=== PATIENT | male | born 1960 | race Caucasian/White ===

== ENCOUNTER 2019-08-04 10:49 | Inpatient (IN) | payer MEDICARE, OTHER ==
[2019-08-04] MEDS ORDERED: Sodium Chloride 0.9% 1000 ML 1,000 ML ONE (11:04)
[2019-08-04] MEDS ORDERED: Sodium Chloride 0.9% 1000 ML 2,000 ML ONE (11:10)
[2019-08-04] MEDS: Sodium Chloride 0.9% 1000 ML 1,000 ML IV SCH ×5 (11:10→22:52)
[2019-08-04] MEDS ORDERED: Zithromax 500 MG/ 250 ML NaCl Premix 500 MG/250 ML IVPB IV STA (11:14)
[2019-08-04] MEDS ORDERED: ROCEPHIN 1 Gm-D5w 50 ml Bag** 1 G/50 ML IVPB IV STA (11:14)
[2019-08-04] MEDS ORDERED: ROCEPHIN 1 Gm-D5w 50 ml Bag** 1 G/50 ML IVPB IV ONE (11:19)
[2019-08-04] MEDS ORDERED: Zithromax 500 MG/ 250 ML NaCl Premix 500 MG/250 ML IVPB IV ONE (11:19)
[2019-08-04 11:24] LABS: Lactic Acid 3.4 (0.4-2.0)
[2019-08-04] MEDS ORDERED: FEVERALL 325 MG PR STA (11:29)
[2019-08-04 11:31] LABS: BASOPHIL % 0.2 % (0.0-0.4); Basophil (Absolute #) 0.03 (0-0.4); Eosinophil % 0.1 % (0.00-5.0); Eosinophil (Absolute #) 0.01 (0-0.5); Hematocrit 49.8 % (42-50); Hemoglobin 16.7 gm/dl (12.5-18.0); INR 1.47 (0.8-3.0); Lymphocyte (Absolute #) 1.45 (1.0-4.6); Mean Cell Volume 90.7 fl (78-100); Mean Corpuscular Hemoglobin 30.4 pg (26-32); Mean Corpuscular Hgb Concent. 33.5 g/dl (32-36); Mean Platelet Volume 10.3 fl (6-9.5); Monocytes % 14.1 % (0.0-12.0); Neutrophil % 73.6 % (36.0-66.0); PROTIME 16.8 SECONDS (8.83-12.87); Platelet Count 280 K/mm3 (150-450); Red Blood Count 5.49 M/mm3 (4.1-5.6); Red Cell Distribution Width 13.9 % (11.5-14.0); White Blood Count 12.1 K/mm3 (4.0-10.5)
[2019-08-04] MEDS ORDERED: FEVERALL 650 MG ONE (11:31)
[2019-08-04 11:34] LABS: PTT 34.4 SECONDS (24.1-36.1)
[2019-08-04 11:35] LABS: ALBUMIN 4.4 g/dL (3.5-5.0); ALKALINE PHOSPHATASE 84 U/L (38-126); ANION GAP 15.3 MEQ/L (5-15); BLOOD UREA NITROGEN 19 mg/dL (9-20); CHLORIDE 101 mmol/L (98-107); Calcium 8.6 mg/dL (8.4-10.2); Carbon Dioxide 25 mmol/L (22-30); Creatinine 1 0.91 mg/dL (0.66-1.25); Glucose 122 mg/dL (74-106); Potassium 4.3 mmol/L (3.5-5.1); SGOT/AST 36 U/L (17-59); SGPT/ALT 29 U/L (0-50); SODIUM 137 mmol/L (137-145); Total Protein 8.2 g/dL (6.3-8.2)
--- NOTE | 2019-08-04 11:45 | ERPHSYRPT ---
- History of Present Illness Time Seen by Provider: 08/04/19 11:41 Source: patient, EMS Exam Limitations: no limitations Patient Subjective Stated Complaint: SOB Triage Nursing Assessment: Patient brought into ED via EMS and transferred to bed with assist of 4. Patient A+O X3. Patient's skin flushed, hot and diaphoretic. Patient states he has been coughing and not feeling well since Monday. Lungs noted to have Rhonchi throughout. Initial O2 77% on 4 liters per N/C then placed on non rebreather at 15 % O2 making Sat go to 98. Patient complains of body aches all over 05/16. Physician History: Patient brought into ED via EMS Patient states he has been coughing and not feeling well since Monday. Patient complains of body aches all over 05/16. Timing/Duration: day(s) (2-3 days) Associated Symptoms: cough, fever, lightheadedness, wheezing, weakness, chills, productive cough International travel in last 2 weeks: No Allergies/Adverse Reactions: No Known Drug Allergies Allergy (Unverified 08/04/19 10:54) Home Medications: Amitriptyline HCl 1 tab PO HS 08/04/19 [History] Fluoxetine HCl 1 tab PO DAILY 08/04/19 [History] Hx Influenza Vaccination/Date Given: No Hx Pneumococcal Vaccination/Date Given: No Immunizations Up to Date: Yes - Review of Systems Constitutional: Fever, Chills, Lethargy Eyes: Eye Redness Ears, Nose, & Throat: Sinus Drainage Respiratory: Cough, Dyspnea, Dyspnea on Exertion (ROBERTO), Wheezing Cardiac: Orthopnea, No Chest Pain, No Edema, No Syncope Abdominal/Gastrointestinal: No Abdominal Pain, No Nausea, No Vomiting, No Diarrhea Genitourinary Symptoms: No Dysuria Musculoskeletal: No Back Pain, No Neck Pain Skin: No Rash Neurological: No Dizziness, No Focal Weakness, No Sensory Changes Psychological: No Symptoms Endocrine: No Symptoms All Other Systems: Reviewed and Negative - Past Medical History Neurological History: Peripheral Neuropathy, Other Cardiac History: No Pertinent History Respiratory History: No Pertinent History Endocrine Medical History: No Pertinent History Musculoskeletal History: No Pertinent History GI Medical History: No Pertinent History History: No Pertinent History Psycho-Social History: Depression Male Reproductive Disorders: No Pertinent History Other Medical History: Multiple sclerosis, neuropathy, - Past Surgical History Past Surgical History: No Neuro Surgical History: No Pertinent History Cardiac: No Pertinent History Respiratory: No Pertinent History Gastrointestinal: No Pertinent History Genitourinary: No Pertinent History Musculoskeletal: No Pertinent History Male Surgical History: No Pertinent History - Social History Smoking Status: Never smoker Exposure to second hand smoke: No Drug Use: none Patient Lives Alone: No - Nursing Vital Signs Nursing Vital Signs: Initial Vital Signs Temperature 101.7 F 08/04/19 10:58 Pulse Rate 121 H 08/04/19 10:58 Respiratory Rate 35 H 08/04/19 10:58 Blood Pressure 148/96 08/04/19 10:58 O2 Sat by Pulse Oximetry 77 L 08/04/19 10:58 Pain Scale Pain Intensity 9 - Physical Exam General Appearance: moderate distress, alert Eye Exam: PERRL/EOMI Ears, Nose, Throat Exam: pharyngeal erythema Neck Exam: normal inspection, supple Respiratory Exam: diminished breath sounds, crackles/rales, rhonchi, wheezing Cardiovascular/Chest Exam: normal heart sounds, tachycardia Abdominal/Gastrointestinal Exam: soft, No tenderness, No distention, No mass Extremity Exam: non-tender, normal range of motion, normal inspection, no calf tenderness, no pedal edema Neurologic Exam: alert, oriented x 3, cooperative, No motor deficits Skin Exam: normal color, warm, No dry SpO2 Interpretation: hypoxic, ABG ordered, O2 applied SpO2: 98 O2 Delivery: Venti-Mask - Course Nursing assessment & vital signs reviewed: Yes EKG Interpreted by Me: Sinus Tach - Radiology Exams Chest X-ray Interpretation: Reviewed by me Ordered Tests: Active Orders 24 hr Category Date Time Status Veneer Clipper Helper STAT Care 08/04/19 10:58 Active IV Insertion STAT Care 08/04/19 10:58 Active IV Insertion-2nd Peripheral STAT Care 08/04/19 10:58 Active Oxygen-ED Only Venti-Mask 35% Care 08/04/19 10:58 Active Pulse Oximetry (ED) STAT Care 08/04/19 10:58 Active CHEST 1 VIEW (PORTABLE) Stat Exams 08/04/19 10:59 Taken BLOOD CULTURE Stat Lab 08/04/19 11:15 Received CBC W DIFF Stat Lab 08/04/19 11:10 Completed CMP Stat Lab 08/04/19 11:10 Completed CULTURE,URINE Stat Lab 08/04/19 11:08 Ordered Lactic Acid Stat Lab 08/04/19 10:58 Results Lactic Acid Stat Lab 08/04/19 10:59 Ordered PROTIME WITH INR Stat Lab 08/04/19 11:10 Completed PTT Stat Lab 08/04/19 11:10 Completed UA W/RFX UR CULTURE Stat Lab 08/04/19 11:08 Completed Medication Summary Generic Name Dose Route Start Last Admin Trade Name Spike PRN Reason Stop Dose Admin Sodium Chloride 1,000 mls @ 999 mls/hr 08/04/19 11:00 08/04/19 11:12 Sodium Chloride 0.9% 1000 Ml IV 08/04/19 14:00 999 mls/hr .[id number] CAROLE Administration Azithromycin 500 mg in 250 mls @ 250 mls/hr 08/04/19 11:14 08/04/19 11:23 Zithromax 500 Mg/ 250 Ml Nacl Premix IV 08/04/19 12:13 250 ml/hr STAT STA 250 mls/hr Administration Oseltamivir Phosphate 75 mg 08/04/19 12:10 Tamiflu 75mg Capsule PO 08/04/19 12:11 STAT ONE Discontinued Medications Generic Name Dose Route Start Last Admin Trade Name Spike PRN Reason Stop Dose Admin Acetaminophen 975 mg 08/04/19 11:29 08/04/19 11:31 Feverall 325 Mg AL 08/04/19 11:30 975 mg STAT STA Administration Acetaminophen Confirm 08/04/19 11:31 Feverall 650 Mg Administered 08/04/19 11:32 Dose 1,300 mg .ROUTE .STK-MED ONE Ceftriaxone Sodium/Dextrose 1 g in 50 mls @ 100 mls/hr 08/04/19 11:14 11:53 Rocephin 1 Gm-D5w 50 Ml Bag IV 08/04/19 11:43 Infused STAT STA Infusion Azithromycin Confirm 08/04/19 11:19 Zithromax 500 Mg/ 250 Ml Nacl Premix Administered 08/04/19 11:20 Dose 500 mg in 250 mls @ ud IV .STK-MED ONE Ceftriaxone Sodium/Dextrose Confirm 08/04/19 11:19 Rocephin 1 Gm-D5w 50 Ml Bag Administered 08/04/19 11:20 Dose 1 g in 50 mls @ ud IV .STK-MED ONE Lab/Rad Data: Laboratory Result Diagrams 08/04/19 11:10 08/04/19 11:10 Laboratory Results 08/04/19 08/04/19 08/04/19 Range/Units 11:30 11:10 11:10 WBC (4.0-10.5) K/mm3 RBC (4.1-5.6) M/mm3 Hgb (12.5-18.0) gm/dl Hct (42-50) % MCV (78-100) fl MCH (26-32) pg MCHC (32-36) g/dl RDW (11.5-14.0) % Plt Count (150-450) K/mm3 MPV (6-9.5) fl Gran % (36.0-66.0) % Eos # (Auto) (0-0.5) Absolute Lymphs (auto) (1.0-4.6) Absolute Monos (auto) (0.0-1.3) Lymphocytes % (24.0-44.0) % Monocytes % (0.0-12.0) % Eosinophils % (0.00-5.0) % Basophils % (0.0-0.4) % Absolute Granulocytes (1.4-6.9) Basophils # (0-0.4) PT 16.8 H (8.83-12.87) SECONDS INR 1.47 (0.8-3.0) APTT 34.4 (24.1-36.1) SECONDS Sodium 137 (137-145) mmol/L Potassium 4.3 (3.5-5.1) mmol/L Chloride 101 (98-107) mmol/L Carbon Dioxide 25 (22-30) mmol/L Anion Gap 15.3 H (5-15) MEQ/L BUN 19 (9-20) mg/dL Creatinine 0.91 (0.66-1.25) mg/dL Estimated GFR > 60.0 ML/MIN Glucose 122 H (74-106) mg/dL Lactic Acid (0.4-2.0) Calcium 8.6 (8.4-10.2) mg/dL Total Bilirubin 0.70 (0.2-1.3) mg/dL AST 36 (17-59) U/L ALT 29 (0-50) U/L Alkaline Phosphatase 84 (38-126) U/L Serum Total Protein 8.2 (6.3-8.2) g/dL Albumin 4.4 (3.5-5.0) g/dL Urine Color (YELLOW) Urine Appearance (CLEAR) Urine pH (5-6) Ur Specific [place] (1.005-1.025) Urine Protein (Negative) Urine Ketones (NEGATIVE) Urine Blood (0-5) Justen/ul Urine Nitrite (NEGATIVE) Urine Bilirubin (NEGATIVE) Urine Urobilinogen (0-1) mg/dL Ur Leukocyte Esterase (NEGATIVE) Urine WBC (Auto) (0-5) /HPF Urine RBC (Auto) (0-2) /HPF U Epithel Cells (Auto) (FEW) /HPF Urine Bacteria (Auto) (NEGATIVE) /HPF Uric Acid Cryst (Auto) (NEGATIVE) /HPF Urine Mucus (Auto) (NEGATIVE) /HPF Urine Culture Reflexed (NO) Urine Glucose (NEGATIVE) mg/dL Influenza Type A Ag POSITIVE (NEGATIVE) Influenza Type B Ag NEGATIVE (NEGATIVE) RSV (PCR) NEGATIVE (Negative) Slides for Path Review 08/04/19 08/04/19 08/04/19 Range/Units 11:10 11:08 10:58 WBC 12.1 H (4.0-10.5) K/mm3 RBC 5.49 (4.1-5.6) M/mm3 Hgb 16.7 (12.5-18.0) gm/dl Hct 49.8 (42-50) % MCV 90.7 (78-100) fl MCH 30.4 (26-32) pg MCHC 33.5 (32-36) g/dl RDW 13.9 (11.5-14.0) % Plt Count 280 (150-450) K/mm3 MPV 10.3 H (6-9.5) fl Gran % 73.6 H (36.0-66.0) % Eos # (Auto) 0.01 (0-0.5) Absolute Lymphs (auto) 1.45 (1.0-4.6) Absolute Monos (auto) 1.70 H (0.0-1.3) Lymphocytes % 12.0 L (24.0-44.0) % Monocytes % 14.1 H (0.0-12.0) % Eosinophils % 0.1 (0.00-5.0) % Basophils % 0.2 (0.0-0.4) % Absolute Granulocytes 8.90 H (1.4-6.9) Basophils # 0.03 (0-0.4) PT (8.83-12.87) SECONDS INR (0.8-3.0) APTT (24.1-36.1) SECONDS Sodium (137-145) mmol/L Potassium (3.5-5.1) mmol/L Chloride (98-107) mmol/L Carbon Dioxide (22-30) mmol/L Anion Gap (5-15) MEQ/L BUN (9-20) mg/dL Creatinine (0.66-1.25) mg/dL Estimated GFR ML/MIN Glucose (74-106) mg/dL Lactic Acid 3.4 H (0.4-2.0) Calcium (8.4-10.2) mg/dL Total Bilirubin (0.2-1.3) mg/dL AST (17-59) U/L ALT (0-50) U/L Alkaline Phosphatase (38-126) U/L Serum Total Protein (6.3-8.2) g/dL Albumin (3.5-5.0) g/dL Urine Color YELLOW (YELLOW) Urine Appearance SLIGHTLY CLOUDY (CLEAR) Urine pH 5.0 (5-6) Ur Specific [place] 1.023 (1.005-1.025) Urine Protein NEGATIVE (Negative) Urine Ketones SMALL (NEGATIVE) Urine Blood NEGATIVE (0-5) Justen/ul Urine Nitrite NEGATIVE (NEGATIVE) Urine Bilirubin NEGATIVE (NEGATIVE) Urine Urobilinogen 2 (0-1) mg/dL Ur Leukocyte Esterase NEGATIVE (NEGATIVE) Urine WBC (Auto) 0-2 (0-5) /HPF Urine RBC (Auto) 0-2 (0-2) /HPF U Epithel Cells (Auto) NONE (FEW) /HPF Urine Bacteria (Auto) RARE (NEGATIVE) /HPF Uric Acid Cryst (Auto) 5-10 (NEGATIVE) /HPF Urine Mucus (Auto) SLIGHT (NEGATIVE) /HPF Urine Culture Reflexed ORDERED SEPARATELY (NO) Urine Glucose NEGATIVE (NEGATIVE) mg/dL Influenza Type A Ag (NEGATIVE) Influenza Type B Ag (NEGATIVE) RSV (PCR) (Negative) Slides for Path Review YES - Progress Progress: improved Air Movement: fair Blood Culture(s) Obtained: Yes Antibiotics given: Yes Discussed with : Cindy Counseled pt/family regarding: lab results, diagnosis, need for follow-up, rad results - Departure Departure Disposition: Observation Clinical Impression: Influenza A, Hypoxia, Viral pneumonia, unspecified Condition: Fair Critical Care Time: Yes Critical Care Time(excluding separately billable procedures): Critical 30-74 mins Referrals: DOCTOR,NO FAMILY [Primary Care Provider] -
[2019-08-04 11:49] LABS: Appearance SLIGHTLY CLOUDY (CLEAR); Bacteria RARE /HPF (NEGATIVE); Bilirubin NEGATIVE (NEGATIVE); Blood NEGATIVE Ery/ul (0-5); Glucose NEGATIVE (NEGATIVE); Ketones SMALL (NEGATIVE); Leukocyte Esterase NEGATIVE (NEGATIVE); Mucus SLIGHT /HPF (NEGATIVE); Nitrite NEGATIVE (NEGATIVE); Protein,Urine Dip NEGATIVE (Negative); RBC 0-2 /HPF (0-2); Specific Gravity 1.023 (1.005-1.025); Urobilinogen 2 mg/dL (0-1); WBC 0-2 /HPF (0-5)
[2019-08-04 11:58] LABS: Slide Review 1 YES
[2019-08-04 12:09] LABS: INFLUENZA A POSITIVE (NEGATIVE); INFLUENZA B NEGATIVE (NEGATIVE); RESPIRATORY SYNCTIAL VIRUS NEGATIVE (Negative)
[2019-08-04] MEDS ORDERED: Tamiflu 75MG Capsule PO ONE ×2 (12:10→12:13)
[2019-08-04] MEDS ORDERED: TYLENOL 325 MG PO PRN (12:37)
[2019-08-04] MEDS: DUONEB 0.5-3 MG/3 ml Neb IH SCH ×2 (14:20→19:40)
[2019-08-04] MEDS: PROTONIX 40 MG IV IV SCH (14:21)
[2019-08-04] MEDS: ENOXAPARIN SODIUM SQ SCH (14:21)
[2019-08-04 14:29] LABS: A-aADO2 552; ABG POTASSIUM 3.5 (3.5-5.1); ABG SITE LEFT BRACHIAL; ARTERIAL BLOOD GAS BASE EXCESS -3.5 (-2.0-2.0); ARTERIAL BLOOD GAS PCO2 34 mmHg (35-45); ARTERIAL BLOOD GAS PO2 119 mmHg (75-100); ARTERIAL BLOOD GAS pH 7.39 (7.35-7.45); CARBOXYHEMOGLOBIN 1.4 % THgb (0.0-6.9); HCO3- 20.6 (22-28); HGB O2 SAT 96.9 g/dF (94-100); paO2 pAO1 0.18
[2019-08-04] MEDS ORDERED: Zofran 4 MG/2 ML VIAL IV PRN (16:52)
--- NOTE | 2019-08-04 20:16 | XRAY ---
Indication: Sepsis. Comparison: March 17, 2012. Portable chest again demonstrates right base discoid atelectasis/scarring. Remaining heart and left lung normal. Bony thorax intact again with mild degenerative changes. No new/acute findings.
[2019-08-04] MEDS: Tamiflu 75MG Capsule PO SCH (21:45)
[2019-08-04] MEDS: Pepcid 20 MG VIAL IV SCH (21:45)
[2019-08-05] MEDS: DUONEB 0.5-3 MG/3 ml Neb IH SCH ×4 (01:00→20:17)
[2019-08-05 05:31] LABS: BASOPHIL % 0.3 % (0.0-0.4); Basophil (Absolute #) 0.02 (0-0.4); Eosinophil (Absolute #) 0 (0-0.5); Hematocrit 43.4 % (42-50); Hemoglobin 14.3 gm/dl (12.5-18.0); Lymphocyte (Absolute #) 0.74 (1.0-4.6); Lymphocytes % 11.6 % (24.0-44.0); Mean Cell Volume 92.1 fl (78-100); Mean Corpuscular Hemoglobin 30.4 pg (26-32); Mean Corpuscular Hgb Concent. 32.9 g/dl (32-36); Mean Platelet Volume 9.9 fl (6-9.5); Monocyte (Absolute #) 0.91 (0.0-1.3); Monocytes % 14.3 % (0.0-12.0); Neutrophil % 73.8 % (36.0-66.0); Platelet Count 188 K/mm3 (150-450); Red Blood Count 4.71 M/mm3 (4.1-5.6); Red Cell Distribution Width 13.9 % (11.5-14.0); White Blood Count 6.4 K/mm3 (4.0-10.5)
[2019-08-05 05:43] LABS: ANION GAP 10.6 MEQ/L (5-15); BLOOD UREA NITROGEN 15 mg/dL (9-20); CHLORIDE 106 mmol/L (98-107); Calcium 7.6 mg/dL (8.4-10.2); Carbon Dioxide 25 mmol/L (22-30); Creatinine 1 0.76 mg/dL (0.66-1.25); Glucose 103 mg/dL (74-106); Potassium 3.7 mmol/L (3.5-5.1); SODIUM 138 mmol/L (137-145)
--- NOTE | 2019-08-05 08:57 | PCM.HP ---
History of Present Illness - Chief Complaint Chief Complaint: Influenza A, Viral Pneumonia History of Present Illness: is a 58 year old male with no local physician, has had cough, fever and myalgias prior to arrival, found to have influenza. He has a history of MS and sees Dr Irvin Littlejohn as his neurologist in [place], lives with his and daughter, uses a power mobility device and is non-ambulatory. He denies any history of cardiac or pulmonary problems. - Review of Systems Constitutional: Fever, Chills Respiratory: Cough, Short Of Breath Cardiac: No Chest Pain, No Edema, No Syncope Abdominal/Gastrointestinal: No Abdominal Pain, No Nausea, No Vomiting, No Diarrhea Skin: No Rash All Other Systems: Reviewed and Negative Medications & Allergies Home Medications: Home Medication List Amitriptyline HCl 100 mg PO HS 08/04/19 [History Confirmed 08/04/19] Fluoxetine HCl 20 mg PO DAILY 08/04/19 [History Confirmed 08/04/19] Allergies/Adverse Reactions: Allergies Allergy/AdvReac Type Severity Reaction Status Date / Time No Known Drug Allergies Allergy Unverified 08/04/19 10:54 - Past Medical History Neurological History: Peripheral Neuropathy, Other ENT History: No Pertinent History Cardiac History: No Pertinent History Respiratory History: No Pertinent History Endocrine Medical History: No Pertinent History Musculoskelatal History: No Pertinent History GI Medical History: No Pertinent History History: No Pertinent History Pyscho-Social History: Depression Male Reproductive Disorders: No Pertinent History Comment: Multiple sclerosis, neuropathy, - Past Surgical History Past Surgical History: No Neuro Surgical History: No Pertinent History Cardiac History: No Pertinent History Respiratory Surgery: No Pertinent History GI Surgical History: No Pertinent History Genitourinary Surgical Hx: No Pertinent History Musculskeletal Surgical Hx: No Pertinent History Male Surgical History: No Pertinent History - Social History Smoking Status: Never smoker Exposure to second hand smoke: No Alcohol: None Drug Use: none - Physical Exam Vital Signs: Vital Signs - 24 hr Temp Pulse Resp BP Pulse Ox 08/05/19 07:52 98 08/05/19 07:23 107 H 38 H 92 L 08/05/19 07:18 99.2 F 107 H 38 H 129/65 92 L 08/05/19 03:44 99.2 F 71 22 131/72 94 L 08/05/19 01:00 99 H 20 97 08/05/19 00:00 98.7 F 99 H 20 128/73 99 08/04/19 19:58 100.6 F 109 H 21 137/71 98 08/04/19 19:56 110 H 20 96 08/04/19 16:34 100.1 F 107 H 22 142/85 96 08/04/19 15:08 111 H 18 96 08/04/19 13:02 101 F 115 H 22 138/75 98 08/04/19 12:51 101 F 115 H 22 138/75 98 08/04/19 12:13 98 08/04/19 12:11 103.1 F 118 H 28 H 125/80 99 08/04/19 11:35 103.5 F 122 H 30 H 138/69 98 08/04/19 11:28 116 H 32 H 158/95 97 08/04/19 11:08 93 L 08/04/19 10:58 101.7 F 121 H 35 H 148/96 100 Oxygen-Last 24 hours O2 Percentage 100% O2 Percentage 100% O2 Percentage 100% O2 Percentage 35% O2 Percentage 100% Oxygen Flowrate (L/min)-RT 15 Oxygen Flowrate (L/min)-RT 15 Oxygen Flowrate (L/min)-RT 15 Oxygen Flowrate (L/min)-RT 10 General Appearance: mild distress, obese Neurologic Exam: alert, oriented x 3, cooperative Respiratory Exam: rhonchi Cardiovascular Exam: regular rate/rhythm, normal heart sounds, normal peripheral pulses Gastrointestinal/Abdomen Exam: soft, normal bowel sounds, No tenderness, No mass Extremity Exam: normal inspection, normal range of motion, pelvis stable Skin Exam: normal color, warm, dry, No rash Wound Assessment: Skin/Wound Assessment Wound/Incision Assessment Start: 08/04/19 13: 55 Text: Status: Active Freq: Q6H Protocol: Document 08/05/19 02:00 GILES (Rec: 08/05/19 03:23 GILES [id number]) Wound Photo Photo Taken No Results - Labs Lab/Micro Results: Lab Results-Last 24 Hours 08/04/19 08/04/19 08/04/19 Range/Units 10:58 11:08 11:10 WBC 12.1 H (4.0-10.5) K/mm3 RBC 5.49 (4.1-5.6) M/mm3 Hgb 16.7 (12.5-18.0) gm/dl Hct 49.8 (42-50) % MCV 90.7 (78-100) fl MCH 30.4 (26-32) pg MCHC 33.5 (32-36) g/dl RDW 13.9 (11.5-14.0) % Plt Count 280 (150-450) K/mm3 MPV 10.3 H (6-9.5) fl Gran % 73.6 H (36.0-66.0) % Eos # (Auto) 0.01 (0-0.5) Absolute Lymphs (auto) 1.45 (1.0-4.6) Absolute Monos (auto) 1.70 H (0.0-1.3) Lymphocytes % 12.0 L (24.0-44.0) % Monocytes % 14.1 H (0.0-12.0) % Eosinophils % 0.1 (0.00-5.0) % Basophils % 0.2 (0.0-0.4) % Absolute Granulocytes 8.90 H (1.4-6.9) Basophils # 0.03 (0-0.4) PT (8.83-12.87) SECONDS INR (0.8-3.0) APTT (24.1-36.1) SECONDS Puncture Site pCO2 (35-45) mmHg pO2 (75-100) mmHg Base Excess (-2.0-2.0) O2 Saturation (94-100) g/dF ABG pH (7.35-7.45) ABG HCO3 (22-28) [place] Test A-a Gradient a/A Ratio Hemoglobin Carboxyhemoglobin (0.0-6.9) % THgb Methemoglobin (1.4-1.5) % Temperature C Sodium (137-145) mmol/L Potassium (3.5-5.1) mmol/L Chloride (98-107) mmol/L Carbon Dioxide (22-30) mmol/L Anion Gap (5-15) MEQ/L BUN (9-20) mg/dL Creatinine (0.66-1.25) mg/dL Estimated GFR ML/MIN Glucose (74-106) mg/dL Lactic Acid 3.4 H (0.4-2.0) Calcium (8.4-10.2) mg/dL Total Bilirubin (0.2-1.3) mg/dL AST (17-59) U/L ALT (0-50) U/L Alkaline Phosphatase (38-126) U/L Serum Total Protein (6.3-8.2) g/dL Albumin (3.5-5.0) g/dL Urine Color YELLOW (YELLOW) Urine Appearance SLIGHTLY CLOUDY (CLEAR) Urine pH 5.0 (5-6) Ur Specific [place] 1.023 (1.005-1.025) Urine Protein NEGATIVE (Negative) Urine Ketones SMALL (NEGATIVE) Urine Blood NEGATIVE (0-5) Justen/ul Urine Nitrite NEGATIVE (NEGATIVE) Urine Bilirubin NEGATIVE (NEGATIVE) Urine Urobilinogen 2 (0-1) mg/dL Ur Leukocyte Esterase NEGATIVE (NEGATIVE) Urine WBC (Auto) 0-2 (0-5) /HPF Urine RBC (Auto) 0-2 (0-2) /HPF U Epithel Cells (Auto) NONE (FEW) /HPF Urine Bacteria (Auto) RARE (NEGATIVE) /HPF Uric Acid Cryst (Auto) 5-10 (NEGATIVE) /HPF Urine Mucus (Auto) SLIGHT (NEGATIVE) /HPF Urine Culture Reflexed ORDERED SEPARATELY (NO) Urine Glucose NEGATIVE (NEGATIVE) mg/dL Influenza Type A Ag (NEGATIVE) Influenza Type B Ag (NEGATIVE) RSV (PCR) (Negative) Slides for Path Review YES 08/04/19 08/04/19 08/04/19 Range/Units 11:10 11:10 11:30 WBC (4.0-10.5) K/mm3 RBC (4.1-5.6) M/mm3 Hgb (12.5-18.0) gm/dl Hct (42-50) % MCV (78-100) fl MCH (26-32) pg MCHC (32-36) g/dl RDW (11.5-14.0) % Plt Count (150-450) K/mm3 MPV (6-9.5) fl Gran % (36.0-66.0) % Eos # (Auto) (0-0.5) Absolute Lymphs (auto) (1.0-4.6) Absolute Monos (auto) (0.0-1.3) Lymphocytes % (24.0-44.0) % Monocytes % (0.0-12.0) % Eosinophils % (0.00-5.0) % Basophils % (0.0-0.4) % Absolute Granulocytes (1.4-6.9) Basophils # (0-0.4) PT 16.8 H (8.83-12.87) SECONDS INR 1.47 (0.8-3.0) APTT 34.4 (24.1-36.1) SECONDS Puncture Site pCO2 (35-45) mmHg pO2 (75-100) mmHg Base Excess (-2.0-2.0) O2 Saturation (94-100) g/dF ABG pH (7.35-7.45) ABG HCO3 (22-28) [place] Test A-a Gradient a/A Ratio Hemoglobin Carboxyhemoglobin (0.0-6.9) % THgb Methemoglobin (1.4-1.5) % Temperature C Sodium 137 (137-145) mmol/L Potassium 4.3 (3.5-5.1) mmol/L Chloride 101 (98-107) mmol/L Carbon Dioxide 25 (22-30) mmol/L Anion Gap 15.3 H (5-15) MEQ/L BUN 19 (9-20) mg/dL Creatinine 0.91 (0.66-1.25) mg/dL Estimated GFR > 60.0 ML/MIN Glucose 122 H (74-106) mg/dL Lactic Acid (0.4-2.0) Calcium 8.6 (8.4-10.2) mg/dL Total Bilirubin 0.70 (0.2-1.3) mg/dL AST 36 (17-59) U/L ALT 29 (0-50) U/L Alkaline Phosphatase 84 (38-126) U/L Serum Total Protein 8.2 (6.3-8.2) g/dL Albumin 4.4 (3.5-5.0) g/dL Urine Color (YELLOW) Urine Appearance (CLEAR) Urine pH (5-6) Ur Specific [place] (1.005-1.025) Urine Protein (Negative) Urine Ketones (NEGATIVE) Urine Blood (0-5) Justen/ul Urine Nitrite (NEGATIVE) Urine Bilirubin (NEGATIVE) Urine Urobilinogen (0-1) mg/dL Ur Leukocyte Esterase (NEGATIVE) Urine WBC (Auto) (0-5) /HPF Urine RBC (Auto) (0-2) /HPF U Epithel Cells (Auto) (FEW) /HPF Urine Bacteria (Auto) (NEGATIVE) /HPF Uric Acid Cryst (Auto) (NEGATIVE) /HPF Urine Mucus (Auto) (NEGATIVE) /HPF Urine Culture Reflexed (NO) Urine Glucose (NEGATIVE) mg/dL Influenza Type A Ag POSITIVE (NEGATIVE) Influenza Type B Ag NEGATIVE (NEGATIVE) RSV (PCR) NEGATIVE (Negative) Slides for Path Review 08/04/19 08/04/19 08/05/19 Range/Units 13:24 14:11 05:23 WBC 6.4 (4.0-10.5) K/mm3 RBC 4.71 (4.1-5.6) M/mm3 Hgb 14.3 (12.5-18.0) gm/dl Hct 43.4 (42-50) % MCV 92.1 (78-100) fl MCH 30.4 (26-32) pg MCHC 32.9 (32-36) g/dl RDW 13.9 (11.5-14.0) % Plt Count 188 (150-450) K/mm3 MPV 9.9 H (6-9.5) fl Gran % 73.8 H (36.0-66.0) % Eos # (Auto) 0 (0-0.5) Absolute Lymphs (auto) 0.74 L (1.0-4.6) Absolute Monos (auto) 0.91 (0.0-1.3) Lymphocytes % 11.6 L (24.0-44.0) % Monocytes % 14.3 H (0.0-12.0) % Eosinophils % 0.0 (0.00-5.0) % Basophils % 0.3 (0.0-0.4) % Absolute Granulocytes 4.70 (1.4-6.9) Basophils # 0.02 (0-0.4) PT (8.83-12.87) SECONDS INR (0.8-3.0) APTT (24.1-36.1) SECONDS Puncture Site LEFT BRACHIAL pCO2 34 L (35-45) mmHg pO2 119 H (75-100) mmHg Base Excess -3.5 L (-2.0-2.0) O2 Saturation 96.9 (94-100) g/dF ABG pH 7.39 (7.35-7.45) ABG HCO3 20.6 L (22-28) [place] Test NOT APPLICABLE A-a Gradient 552 a/A Ratio 0.18 Hemoglobin Pending Carboxyhemoglobin 1.4 (0.0-6.9) % THgb Methemoglobin 1.0 L (1.4-1.5) % Temperature 37.0 C Sodium (137-145) mmol/L Potassium 3.5 (3.5-5.1) mmol/L Chloride (98-107) mmol/L Carbon Dioxide (22-30) mmol/L Anion Gap (5-15) MEQ/L BUN (9-20) mg/dL Creatinine (0.66-1.25) mg/dL Estimated GFR ML/MIN Glucose (74-106) mg/dL Lactic Acid 1.3 (0.4-2.0) Calcium (8.4-10.2) mg/dL Total Bilirubin (0.2-1.3) mg/dL AST (17-59) U/L ALT (0-50) U/L Alkaline Phosphatase (38-126) U/L Serum Total Protein (6.3-8.2) g/dL Albumin (3.5-5.0) g/dL Urine Color (YELLOW) Urine Appearance (CLEAR) Urine pH (5-6) Ur Specific [place] (1.005-1.025) Urine Protein (Negative) Urine Ketones (NEGATIVE) Urine Blood (0-5) Justen/ul Urine Nitrite (NEGATIVE) Urine Bilirubin (NEGATIVE) Urine Urobilinogen (0-1) mg/dL Ur Leukocyte Esterase (NEGATIVE) Urine WBC (Auto) (0-5) /HPF Urine RBC (Auto) (0-2) /HPF U Epithel Cells (Auto) (FEW) /HPF Urine Bacteria (Auto) (NEGATIVE) /HPF Uric Acid Cryst (Auto) (NEGATIVE) /HPF Urine Mucus (Auto) (NEGATIVE) /HPF Urine Culture Reflexed (NO) Urine Glucose (NEGATIVE) mg/dL Influenza Type A Ag (NEGATIVE) Influenza Type B Ag (NEGATIVE) RSV (PCR) (Negative) Slides for Path Review 08/05/19 Range/Units 05:23 WBC (4.0-10.5) K/mm3 RBC (4.1-5.6) M/mm3 Hgb (12.5-18.0) gm/dl Hct (42-50) % MCV (78-100) fl MCH (26-32) pg MCHC (32-36) g/dl RDW (11.5-14.0) % Plt Count (150-450) K/mm3 MPV (6-9.5) fl Gran % (36.0-66.0) % Eos # (Auto) (0-0.5) Absolute Lymphs (auto) (1.0-4.6) Absolute Monos (auto) (0.0-1.3) Lymphocytes % (24.0-44.0) % Monocytes % (0.0-12.0) % Eosinophils % (0.00-5.0) % Basophils % (0.0-0.4) % Absolute Granulocytes (1.4-6.9) Basophils # (0-0.4) PT (8.83-12.87) SECONDS INR (0.8-3.0) APTT (24.1-36.1) SECONDS Puncture Site pCO2 (35-45) mmHg pO2 (75-100) mmHg Base Excess (-2.0-2.0) O2 Saturation (94-100) g/dF ABG pH (7.35-7.45) ABG HCO3 (22-28) [place] Test A-a Gradient a/A Ratio Hemoglobin Carboxyhemoglobin (0.0-6.9) % THgb Methemoglobin (1.4-1.5) % Temperature C Sodium 138 (137-145) mmol/L Potassium 3.7 (3.5-5.1) mmol/L Chloride 106 (98-107) mmol/L Carbon Dioxide 25 (22-30) mmol/L Anion Gap 10.6 (5-15) MEQ/L BUN 15 (9-20) mg/dL Creatinine 0.76 (0.66-1.25) mg/dL Estimated GFR > 60.0 ML/MIN Glucose 103 (74-106) mg/dL Lactic Acid (0.4-2.0) Calcium 7.6 L (8.4-10.2) mg/dL Total Bilirubin (0.2-1.3) mg/dL AST (17-59) U/L ALT (0-50) U/L Alkaline Phosphatase (38-126) U/L Serum Total Protein (6.3-8.2) g/dL Albumin (3.5-5.0) g/dL Urine Color (YELLOW) Urine Appearance (CLEAR) Urine pH (5-6) Ur Specific [place] (1.005-1.025) Urine Protein (Negative) Urine Ketones (NEGATIVE) Urine Blood (0-5) Justen/ul Urine Nitrite (NEGATIVE) Urine Bilirubin (NEGATIVE) Urine Urobilinogen (0-1) mg/dL Ur Leukocyte Esterase (NEGATIVE) Urine WBC (Auto) (0-5) /HPF Urine RBC (Auto) (0-2) /HPF U Epithel Cells (Auto) (FEW) /HPF Urine Bacteria (Auto) (NEGATIVE) /HPF Uric Acid Cryst (Auto) (NEGATIVE) /HPF Urine Mucus (Auto) (NEGATIVE) /HPF Urine Culture Reflexed (NO) Urine Glucose (NEGATIVE) mg/dL Influenza Type A Ag (NEGATIVE) Influenza Type B Ag (NEGATIVE) RSV (PCR) (Negative) Slides for Path Review - Radiology Impressions Radiology Exams & Impressions: Radiology Procedures Category Date Time Status CHEST 1 VIEW (PORTABLE) Routine Exams 08/05/19 08:53 Ordered CHEST 1 VIEW (PORTABLE) Stat Exams 08/04/19 10:59 Completed - Other Procedures and Tests Respiratory Therapy 08/04/19 12:37 Oxygen Nasal Cannula 3 lpm 08/04/19 15:01 Peak Expiratory Flow Rate ONCE Respiratory Therapy Assessment DAILY 08/05/19 07:50 Oxygen High Flow per RT 50% Assessment/Plan (1) Influenza A Current Visit: Yes Status: Acute Assessment & Plan: on tamiflu and supportive measures, has been started on rocephin/zithromax as well, fluids and nebs. due to hypoxia this morning will repeat chest xray, has copious production with cough Code(s): J10.1 - FLU DUE TO OTH IDENT INFLUENZA VIRUS W OTH RESP MANIFEST (2) Hypoxia Current Visit: Yes Status: Acute Code(s): R09.02 - HYPOXEMIA
--- NOTE | 2019-08-05 09:27 | XRAY ---
Indication: Flu symptoms. Comparison: One day earlier. Portable supine chest again demonstrates right base discoid atelectasis/scarring with new superimposed infiltrate and tiny effusion. Stable right hemidiaphragm elevation and mediastinal calcified nodes. Remaining heart and left lung unremarkable.
[2019-08-05 09:50] LABS: A-aADO2 318; ABG POTASSIUM 3.7 (3.5-5.1); ARTERIAL BLOOD GAS BASE EXCESS -2.7 (-2.0-2.0); ARTERIAL BLOOD GAS PCO2 32 mmHg (35-45); ARTERIAL BLOOD GAS PO2 70 mmHg (75-100); ARTERIAL BLOOD GAS pH 7.42 (7.35-7.45); CARBOXYHEMOGLOBIN 1.5 % THgb (0.0-6.9); HCO3- 20.8 (22-28); HGB O2 SAT 94.4 g/dF (94-100); Methhemoglobin 1.1 % (1.4-1.5); paO2 pAO1 0.18
[2019-08-05 09:51] LABS: ABG SITE LEFT RADIAL; ALLEN TEST OK? YES; ARTERIAL BLOOD GAS FIO2 60 %
[2019-08-05 09:52] LABS: ABG HEMOGLOBIN 15.2
[2019-08-05] MEDS: Zithromax 500 MG/ 250 ML NaCl Premix 500 MG/250 ML IVPB IV SCH (09:52)
[2019-08-05] MEDS: PROTONIX 40 MG IV IV SCH (09:52)
[2019-08-05] MEDS: Pepcid 20 MG VIAL IV SCH ×2 (09:52→21:58)
[2019-08-05] MEDS: Tamiflu 75MG Capsule PO SCH ×2 (09:53→21:58)
[2019-08-05] MEDS: Sodium Chloride 0.9% 1000 ML 1,000 ML IV SCH ×2 (09:54→21:58)
[2019-08-05] MEDS: Prozac 20 MG PO SCH (09:54)
[2019-08-05] MEDS: ENOXAPARIN SODIUM SQ SCH (09:54)
[2019-08-05] MEDS: ROCEPHIN 1 Gm-D5w 50 ml Bag** 1 G/50 ML IVPB IV SCH (11:06)
[2019-08-06] MEDS: DUONEB 0.5-3 MG/3 ml Neb IH SCH ×4 (00:54→19:29)
[2019-08-06 05:58] LABS: Absolute Neutrophil Ct (ANC) 2.98 (1.4-6.9); BASOPHIL % 0.7 % (0.0-0.4); Basophil (Absolute #) 0.03 (0-0.4); Eosinophil % 2.2 % (0.00-5.0); Hematocrit 39.7 % (42-50); Hemoglobin 13.2 gm/dl (12.5-18.0); Lymphocyte (Absolute #) 0.88 (1.0-4.6); Lymphocytes % 19.3 % (24.0-44.0); Mean Cell Volume 90.8 fl (78-100); Mean Corpuscular Hemoglobin 30.2 pg (26-32); Mean Corpuscular Hgb Concent. 33.2 g/dl (32-36); Monocyte (Absolute #) 0.58 (0.0-1.3); Monocytes % 12.7 % (0.0-12.0); Neutrophil % 65.1 % (36.0-66.0); Platelet Count 174 K/mm3 (150-450); Red Blood Count 4.37 M/mm3 (4.1-5.6); Red Cell Distribution Width 13.8 % (11.5-14.0); White Blood Count 4.6 K/mm3 (4.0-10.5)
[2019-08-06 06:11] LABS: ANION GAP 8.8 MEQ/L (5-15); BLOOD UREA NITROGEN 15 mg/dL (9-20); CHLORIDE 109 mmol/L (98-107); Calcium 7.8 mg/dL (8.4-10.2); Carbon Dioxide 24 mmol/L (22-30); Creatinine 1 0.62 mg/dL (0.66-1.25); Glucose 98 mg/dL (74-106); Potassium 3.2 mmol/L (3.5-5.1); SODIUM 138 mmol/L (137-145)
[2019-08-06] MEDS: Sodium Chloride 0.9% 1000 ML 1,000 ML IV SCH ×2 (08:19→19:47)
--- NOTE | 2019-08-06 08:23 | PCM.NOTE ---
Date and Time: 08/06/19820 Subjective Assessment: Feeling better this morning. Still having productive cough but it's improved over yesterday. [place] po. Objective Exam General Appearance: no apparent distress, alert Neurologic Exam: oriented x 3, cooperative Skin Exam: normal color, warm, dry, No rash Respiratory Exam: diminished breath sounds, No crackles/rales, No rhonchi, No wheezing Cardiovascular Exam: regular rate/rhythm, normal heart sounds, No murmur Gastrointestinal/Abdomen Exam: soft, normal bowel sounds, No tenderness, No distention, No mass, No guarding, No rebound Extremity Exam: normal inspection, No pedal edema, No swelling Back Exam: normal inspection, No rash OBJECTIVE DATA Vital Signs: Vital Signs - 24 hr Temp Pulse Resp BP Pulse Ox 08/06/19 07:43 98 H 20 95 08/06/19 04:00 75 18 91 L 08/06/19 00:59 72 16 98 08/06/19 00:00 97.5 F 84 16 132/72 99 08/05/19 20:23 76 18 97 08/05/19 20:00 97.7 F 101 H 122/86 98 08/05/19 16:25 98.9 F 08/05/19 13:32 100 H 28 H 94 L 08/05/19 12:29 98.9 F 101 H 28 H 118/70 97 08/05/19 11:20 102 H 30 H 92 L 08/05/19 11:00 93 L Oxygen-Last 24 hours O2 Percentage 60% O2 Percentage 60% O2 Percentage 60% Pain Assessment - Last Documented Pain Intensity 0 Pain Scale Used 0-10 Pain Scale,FLACC Intake and Output: Intake & Output 08/03/19 08/04/19 08/05/19 08/06/19 11:59 11:59 11:59 11:59 Intake Total 2302 660 Output Total 1999 1999 Balance 302 -1340 Weight 124.738 kg 127.9 kg Lab Results: Lab Results-Last 24 Hours 08/04/19 08/05/19 08/06/19 Range/Units 14:11 07:30 05:30 WBC 4.6 (4.0-10.5) K/mm3 RBC 4.37 (4.1-5.6) M/mm3 Hgb 13.2 (12.5-18.0) gm/dl Hct 39.7 L (42-50) % MCV 90.8 (78-100) fl MCH 30.2 (26-32) pg MCHC 33.2 (32-36) g/dl RDW 13.8 (11.5-14.0) % Plt Count 174 (150-450) K/mm3 MPV 10.0 H (6-9.5) fl Gran % 65.1 (36.0-66.0) % Eos # (Auto) 0.10 (0-0.5) Absolute Lymphs (auto) 0.88 L (1.0-4.6) Absolute Monos (auto) 0.58 (0.0-1.3) Lymphocytes % 19.3 L (24.0-44.0) % Monocytes % 12.7 H (0.0-12.0) % Eosinophils % 2.2 (0.00-5.0) % Basophils % 0.7 (0.0-0.4) % Absolute Granulocytes 2.98 (1.4-6.9) Basophils # 0.03 (0-0.4) Puncture Site LEFT RADIAL pCO2 32 L (35-45) mmHg pO2 70 L (75-100) mmHg Base Excess -2.7 L (-2.0-2.0) O2 Saturation 94.4 (94-100) g/dF ABG pH 7.42 (7.35-7.45) ABG HCO3 20.8 L (22-28) [place] Test YES A-a Gradient 318 a/A Ratio 0.18 Hemoglobin Not Reportable 15.2 Carboxyhemoglobin 1.5 (0.0-6.9) % THgb Methemoglobin 1.1 L (1.4-1.5) % Potassium 3.7 (3.5-5.1) Temperature 37.0 C POC O2 Flow Rate 60 % Sodium (137-145) mmol/L Chloride (98-107) mmol/L Carbon Dioxide (22-30) mmol/L Anion Gap (5-15) MEQ/L BUN (9-20) mg/dL Creatinine (0.66-1.25) mg/dL Estimated GFR ML/MIN Glucose (74-106) mg/dL Calcium (8.4-10.2) mg/dL 08/06/19 Range/Units 05:30 WBC (4.0-10.5) K/mm3 RBC (4.1-5.6) M/mm3 Hgb (12.5-18.0) gm/dl Hct (42-50) % MCV (78-100) fl MCH (26-32) pg MCHC (32-36) g/dl RDW (11.5-14.0) % Plt Count (150-450) K/mm3 MPV (6-9.5) fl Gran % (36.0-66.0) % Eos # (Auto) (0-0.5) Absolute Lymphs (auto) (1.0-4.6) Absolute Monos (auto) (0.0-1.3) Lymphocytes % (24.0-44.0) % Monocytes % (0.0-12.0) % Eosinophils % (0.00-5.0) % Basophils % (0.0-0.4) % Absolute Granulocytes (1.4-6.9) Basophils # (0-0.4) Puncture Site pCO2 (35-45) mmHg pO2 (75-100) mmHg Base Excess (-2.0-2.0) O2 Saturation (94-100) g/dF ABG pH (7.35-7.45) ABG HCO3 (22-28) [place] Test A-a Gradient a/A Ratio Hemoglobin Carboxyhemoglobin (0.0-6.9) % THgb Methemoglobin (1.4-1.5) % Potassium 3.2 L (3.5-5.1) Temperature C POC O2 Flow Rate % Sodium 138 (137-145) mmol/L Chloride 109 H (98-107) mmol/L Carbon Dioxide 24 (22-30) mmol/L Anion Gap 8.8 (5-15) MEQ/L BUN 15 (9-20) mg/dL Creatinine 0.62 L (0.66-1.25) mg/dL Estimated GFR > 60.0 ML/MIN Glucose 98 (74-106) mg/dL Calcium 7.8 L (8.4-10.2) mg/dL Radiology Exams: Radiology Procedures Category Date Time Status CHEST 1 VIEW (PORTABLE) Routine Exams 08/05/19 08:53 Completed CHEST 1 VIEW (PORTABLE) Stat Exams 08/04/19 10:59 Completed Assessment/Plan (1) Hypoxia Current Visit: Yes Status: Acute Assessment & Plan: all vitals improved since about 8 pm yesterday. currently on High flow O2 at 60 %. Code(s): R09.02 - HYPOXEMIA (2) Influenza A Current Visit: Yes Status: Acute Assessment & Plan: improving slowly. On rocephin and zithromax also to cover for pneumonia. WBC down from 12.1 at admission to 4.6 today. Code(s): J10.1 - FLU DUE TO OTH IDENT INFLUENZA VIRUS W OTH RESP MANIFEST (3) Multiple sclerosis Current Visit: Yes Status: Chronic Code(s): G35 - MULTIPLE SCLEROSIS (4) Hypokalemia Current Visit: Yes Status: Acute Assessment & Plan: will add po potassium Code(s): E87.6 - HYPOKALEMIA
[2019-08-06] MEDS: Klor Con 10 MEQ PO SCH ×2 (09:48→22:39)
[2019-08-06] MEDS: ROCEPHIN 1 Gm-D5w 50 ml Bag** 1 G/50 ML IVPB IV SCH (09:48)
[2019-08-06] MEDS: Pepcid 20 MG VIAL IV SCH ×2 (09:48→22:39)
[2019-08-06] MEDS: Zithromax 500 MG/ 250 ML NaCl Premix 500 MG/250 ML IVPB IV SCH (09:48)
[2019-08-06] MEDS: Prozac 20 MG PO SCH (09:48)
[2019-08-06] MEDS: Tamiflu 75MG Capsule PO SCH ×2 (09:48→22:39)
[2019-08-06] MEDS: ENOXAPARIN SODIUM SQ SCH (09:48)
[2019-08-06] MEDS: PROTONIX 40 MG IV IV SCH (09:48)
[2019-08-07] MEDS: DUONEB 0.5-3 MG/3 ml Neb IH SCH ×4 (01:56→19:17)
[2019-08-07] MEDS: Sodium Chloride 0.9% 1000 ML 1,000 ML IV SCH ×2 (05:24→16:32)
[2019-08-07 06:37] LABS: ANION GAP 10.2 MEQ/L (5-15); BLOOD UREA NITROGEN 15 mg/dL (9-20); CHLORIDE 109 mmol/L (98-107); Calcium 7.8 mg/dL (8.4-10.2); Carbon Dioxide 23 mmol/L (22-30); Creatinine 1 0.64 mg/dL (0.66-1.25); Glucose 92 mg/dL (74-106); Potassium 3.2 mmol/L (3.5-5.1); SODIUM 139 mmol/L (137-145)
[2019-08-07 06:41] LABS: Hemoglobin 13.3 gm/dl (12.5-18.0); Mean Cell Volume 90.1 fl (78-100); Mean Corpuscular Hemoglobin 30.7 pg (26-32); Mean Corpuscular Hgb Concent. 34.1 g/dl (32-36); Mean Platelet Volume 10.3 fl (6-9.5); Platelet Count 219 K/mm3 (150-450); Red Blood Count 4.33 M/mm3 (4.1-5.6); Red Cell Distribution Width 13.5 % (11.5-14.0); White Blood Count 5.3 K/mm3 (4.0-10.5)
[2019-08-07] MEDS ORDERED: Klor Con 10 MEQ PO ONE ×2 (07:54→10:00)
[2019-08-07] MEDS: PROTONIX 40 MG IV IV SCH (09:27)
[2019-08-07] MEDS: ENOXAPARIN SODIUM SQ SCH (09:27)
[2019-08-07] MEDS: Prozac 20 MG PO SCH (09:28)
[2019-08-07] MEDS: Tamiflu 75MG Capsule PO SCH ×2 (09:28→21:27)
[2019-08-07] MEDS: Pepcid 20 MG VIAL IV SCH ×2 (09:28→21:27)
[2019-08-07] MEDS: Klor Con 10 MEQ PO SCH ×2 (09:29→21:27)
[2019-08-07] MEDS: Zithromax 500 MG/ 250 ML NaCl Premix 500 MG/250 ML IVPB IV SCH (09:29)
[2019-08-07] MEDS: ROCEPHIN 1 Gm-D5w 50 ml Bag** 1 G/50 ML IVPB IV SCH (09:30)
--- NOTE | 2019-08-07 14:24 | PCM.NOTE ---
Date and Time: 08/07/19 1420 Subjective Assessment: Patient reports he continues to feel better each day. He states he often has problems with moving his legs when he wants to due to the MS. He feels like his breathing is getting better. - Review of Systems Constitutional: Weakness Eyes: No Symptoms Ears, Nose, & Throat: No Symptoms Respiratory: Short Of Breath Cardiac: No Symptoms Abdominal/Gastrointestinal: No Symptoms Genitourinary Symptoms: No Symptoms Musculoskeletal: No Symptoms Skin: No Symptoms Objective Exam General Appearance: no apparent distress, other (Pleasant, talkative) Neurologic Exam: alert, cooperative, normal mood/affect Skin Exam: normal color, warm, dry, No rash Respiratory Exam: other (distant breath sounds througout, equal, no crackles, no wheezes) Cardiovascular Exam: regular rate/rhythm, normal heart sounds, No murmur, No friction rub, No gallop Extremity Exam: other (no c/c/e) OBJECTIVE DATA Vital Signs: Vital Signs - 24 hr Temp Pulse Resp BP Pulse Ox 08/07/19 12:36 97.7 F 82 22 136/80 96 08/07/19 08:48 87 18 95 08/07/19 07:40 97.8 F 70 24 128/76 98 08/07/19 04:00 97.6 F 89 21 148/90 98 08/07/19 01:56 93 H 13 94 L 08/07/19 00:00 97.7 F 86 18 152/80 96 08/06/19 20:00 97.6 F 88 22 145/90 98 08/06/19 19:37 88 16 99 08/06/19 16:00 98.3 F 78 20 141/78 97 Oxygen-Last 24 hours O2 Percentage 40% O2 Percentage 40% O2 Percentage 40% O2 Percentage 40% O2 Percentage 40% O2 Percentage 50% Oxygen Flowrate (L/min)-RT 30 Oxygen Flowrate (L/min)-RT 30 Oxygen Flowrate (L/min)-RT 30 Pain Assessment - Last Documented Pain Intensity 0 Pain Scale Used [facility] Intake and Output: Intake & Output 08/05/19 08/06/19 08/07/19 08/08/19 06:59 06:59 06:59 06:59 Intake Total 182 1140 3288 840 Output Total 1999 1999 3000 Balance -178 -860 288 840 Weight 127.9 kg Lab Results: Lab Results-Last 24 Hours 08/07/19 08/07/19 08/07/19 Range/Units 05:15 05:15 05:15 WBC 5.3 (4.0-10.5) K/mm3 RBC 4.33 (4.1-5.6) M/mm3 Hgb 13.3 (12.5-18.0) gm/dl Hct 39.0 L (42-50) % MCV 90.1 (78-100) fl MCH 30.7 (26-32) pg MCHC 34.1 (32-36) g/dl RDW 13.5 (11.5-14.0) % Plt Count 219 (150-450) K/mm3 MPV 10.3 H (6-9.5) fl Sodium 139 (137-145) mmol/L Potassium 3.2 L (3.5-5.1) mmol/L Chloride 109 H (98-107) mmol/L Carbon Dioxide 23 (22-30) mmol/L Anion Gap 10.2 (5-15) MEQ/L BUN 15 (9-20) mg/dL Creatinine 0.64 L (0.66-1.25) mg/dL Estimated GFR > 60.0 ML/MIN Glucose 92 (74-106) mg/dL Calcium 7.8 L (8.4-10.2) mg/dL Magnesium 1.9 (1.6-2.3) mg/dL 08/07/19 Range/Units 07:54 WBC (4.0-10.5) K/mm3 RBC (4.1-5.6) M/mm3 Hgb (12.5-18.0) gm/dl Hct (42-50) % MCV (78-100) fl MCH (26-32) pg MCHC (32-36) g/dl RDW (11.5-14.0) % Plt Count (150-450) K/mm3 MPV (6-9.5) fl Sodium (137-145) mmol/L Potassium (3.5-5.1) mmol/L Chloride (98-107) mmol/L Carbon Dioxide (22-30) mmol/L Anion Gap (5-15) MEQ/L BUN (9-20) mg/dL Creatinine (0.66-1.25) mg/dL Estimated GFR ML/MIN Glucose (74-106) mg/dL Calcium (8.4-10.2) mg/dL Magnesium 1.9 (1.6-2.3) mg/dL Assessment/Plan (1) Influenza A Current Visit: Yes Status: Acute Assessment & Plan: Continue tamiflu. Code(s): J10.1 - FLU DUE TO OTH IDENT INFLUENZA VIRUS W OTH RESP MANIFEST (2) Pneumonia Current Visit: Yes Status: Acute Qualifiers: Laterality: right Lung location: lower lobe of lung Assessment & Plan: Continue rocephin and azithromycin. Gradually improving. Code(s): J18.9 - PNEUMONIA, UNSPECIFIED ORGANISM (3) Hypokalemia Current Visit: Yes Status: Acute Assessment & Plan: Given extra dose of potassium today. Magnesium normal. Code(s): E87.6 - HYPOKALEMIA (4) Multiple sclerosis Current Visit: Yes Status: Chronic Assessment & Plan: Uses power mobility device. Sees neuro as outpatient. Code(s): G35 - MULTIPLE SCLEROSIS
[2019-08-08] MEDS: DUONEB 0.5-3 MG/3 ml Neb IH SCH ×4 (01:54→19:36)
[2019-08-08] MEDS: Sodium Chloride 0.9% 1000 ML 1,000 ML IV SCH ×3 (01:57→23:10)
--- NOTE | 2019-08-08 08:41 | PCM.NOTE ---
Date and Time: 08/08/19 0837 Subjective Assessment: patient has improved a great deal, still requiring oxygen via nasal cannula but he reports he is breathing much more comfortably, he is tolerating po intake. Objective Exam General Appearance: no apparent distress, obese Neurologic Exam: alert, oriented x 3 Respiratory Exam: rhonchi Cardiovascular Exam: regular rate/rhythm, normal heart sounds Gastrointestinal/Abdomen Exam: soft, No tenderness, No mass Extremity Exam: normal inspection, normal range of motion OBJECTIVE DATA Vital Signs: Vital Signs - 24 hr Temp Pulse Resp BP Pulse Ox 08/08/19 07:40 82 24 92 L 08/08/19 07:13 98 F 78 24 148/92 90 L 08/08/19 04:00 98.1 F 79 20 142/76 95 08/08/19 02:15 93 L 08/08/19 00:00 98.6 F 81 18 153/86 94 L 08/07/19 20:40 85 20 94 L 08/07/19 20:00 98.1 F 85 20 149/85 92 L 08/07/19 15:35 97.9 F 89 22 132/68 96 08/07/19 14:20 92 H 18 92 L 08/07/19 12:36 97.7 F 82 22 136/80 96 08/07/19 08:48 87 18 95 Oxygen-Last 24 hours O2 Percentage 4 Liters = 36% O2 Percentage 4 Liters = 36% O2 Percentage 4 Liters = 36% O2 Percentage 40% O2 Percentage 40% Pain Assessment - Last Documented Pain Intensity 0 Pain Scale Used 0-10 Pain Scale Intake and Output: Intake & Output 08/05/19 08/06/19 08/07/19 08/08/19 11:59 11:59 11:59 11:59 Intake Total 2302 660 3708 2977 Output Total 1999 1999 2999 5000 Balance 302 -1340 -2022 Weight 127.9 kg Lab Results: Lab Results-Last 24 Hours 08/07/19 Range/Units 07:54 Magnesium 1.9 (1.6-2.3) mg/dL Assessment/Plan (1) Influenza A Current Visit: Yes Status: Acute Assessment & Plan: continue tamiflu Code(s): J10.1 - FLU DUE TO OTH IDENT INFLUENZA VIRUS W OTH RESP MANIFEST (2) Pneumonia Current Visit: Yes Status: Acute Qualifiers: Laterality: right Lung location: lower lobe of lung Assessment & Plan: continue rocephin/zithromax at this time Code(s): J18.9 - PNEUMONIA, UNSPECIFIED ORGANISM (3) Hypoxia Current Visit: Yes Status: Acute Code(s): R09.02 - HYPOXEMIA
[2019-08-08] MEDS: Tamiflu 75MG Capsule PO SCH ×2 (09:49→23:05)
[2019-08-08] MEDS: Klor Con 10 MEQ PO SCH ×2 (09:49→23:06)
[2019-08-08] MEDS: Pepcid 20 MG VIAL IV SCH ×2 (09:49→23:06)
[2019-08-08] MEDS: Prozac 20 MG PO SCH (09:49)
[2019-08-08] MEDS: ENOXAPARIN SODIUM SQ SCH (09:49)
[2019-08-08] MEDS: PROTONIX 40 MG IV IV SCH (09:51)
[2019-08-08] MEDS: Zithromax 500 MG/ 250 ML NaCl Premix 500 MG/250 ML IVPB IV SCH (09:51)
[2019-08-08] MEDS: ROCEPHIN 1 Gm-D5w 50 ml Bag** 1 G/50 ML IVPB IV SCH (10:40)
[2019-08-09] MEDS: DUONEB 0.5-3 MG/3 ml Neb IH SCH ×4 (01:34→19:08)
[2019-08-09 05:35] LABS: Hematocrit 39.1 % (42-50); Hemoglobin 13.2 gm/dl (12.5-18.0); Mean Cell Volume 89.5 fl (78-100); Mean Corpuscular Hemoglobin 30.2 pg (26-32); Mean Corpuscular Hgb Concent. 33.8 g/dl (32-36); Mean Platelet Volume 9.8 fl (6-9.5); Platelet Count 258 K/mm3 (150-450); Red Blood Count 4.37 M/mm3 (4.1-5.6); Red Cell Distribution Width 13.2 % (11.5-14.0)
[2019-08-09 05:55] LABS: BLOOD UREA NITROGEN 10 mg/dL (9-20); Calcium 7.8 mg/dL (8.4-10.2); Carbon Dioxide 25 mmol/L (22-30); Creatinine 1 0.61 mg/dL (0.66-1.25); Glucose 98 mg/dL (74-106); Potassium 3.5 mmol/L (3.5-5.1); SODIUM 140 mmol/L (137-145)
[2019-08-09 05:57] LABS: CHLORIDE 108 mmol/L (98-107)
[2019-08-09 06:28] LABS: ANION GAP 10.5 MEQ/L (5-15)
[2019-08-09 07:24] LABS: ATYPICAL LYMPHS 2 %; BAND 4 % (0.0-2.0); Eosinophil 3 % (0.00-3.0); Lymphocytes 19 % (24-44); Monocyte 12 % (0.0-12.0); Neutrophils 60 % (36.-66.); Total Cells Counted 100
[2019-08-09 07:26] LABS: Platelet Estimate NORMAL (NORMAL)
[2019-08-09 07:27] LABS: Absolute Neutrophil Ct (ANC) 3.81 (1.4-6.9)
--- NOTE | 2019-08-09 08:57 | PCM.NOTE ---
Date and Time: 08/09/19 0856 Subjective Assessment: patient taking po and overall feeling much better. still requiring 4L oxygen via nasal cannula Objective Exam General Appearance: no apparent distress, alert Skin Exam: normal color, warm, dry Respiratory Exam: rhonchi, wheezing Cardiovascular Exam: regular rate/rhythm, normal heart sounds Gastrointestinal/Abdomen Exam: soft, No tenderness, No mass Extremity Exam: normal inspection, normal range of motion OBJECTIVE DATA Vital Signs: Vital Signs - 24 hr Temp Pulse Resp BP Pulse Ox 08/09/19 08:00 97.7 F 78 24 157/91 94 L 08/09/19 06:37 70 22 91 L 08/09/19 04:00 98.3 F 76 18 149/84 93 L 08/09/19 01:34 68 18 94 L 08/09/19 00:00 98.0 F 83 20 135/69 99 08/08/19 20:00 97.9 F 81 20 147/73 97 08/08/19 19:39 85 23 97 08/08/19 16:00 98.2 F 90 24 137/77 94 L 08/08/19 13:25 90 26 H 94 L 08/08/19 11:38 98 F 84 25 H 145/89 96 Oxygen-Last 24 hours O2 Percentage 4 Liters = 36% O2 Percentage 4 Liters = 36% O2 Percentage 4 Liters = 36% O2 Percentage 4 Liters = 36% Oxygen Flowrate (L/min)-RT 4 Oxygen Flowrate (L/min)-RT 4 Pain Assessment - Last Documented Pain Intensity 0 Pain Scale Used FLACC Intake and Output: Intake & Output 08/06/19 08/07/19 08/08/19 08/09/19 11:59 11:59 11:59 11:59 Intake Total 660 3708 3577 3642 Output Total 1999 3000 6000 2300 Balance -1340 708 -4225 1342 Weight 127.9 kg Lab Results: Lab Results-Last 24 Hours 08/09/19 08/09/19 Range/Units 04:30 04:30 WBC 6.0 (4.0-10.5) K/mm3 RBC 4.37 (4.1-5.6) M/mm3 Hgb 13.2 (12.5-18.0) gm/dl Hct 39.1 L (42-50) % MCV 89.5 (78-100) fl MCH 30.2 (26-32) pg MCHC 33.8 (32-36) g/dl RDW 13.2 (11.5-14.0) % Plt Count 258 (150-450) K/mm3 MPV 9.8 H (6-9.5) fl Absolute Granulocytes 3.81 (1.4-6.9) Segmented Neutrophils 60 (36.-66.) % Band Neutrophils 4 H (0.0-2.0) % Lymphocytes (Manual) 19 L (24-44) % Monocytes (Manual) 12 (0.0-12.0) % Eosinophils (Manual) 3 (0.00-3.0) % Atypical Lymphocytes 2 % Platelet Estimate NORMAL (NORMAL) RBC Morphology NORMAL Sodium 140 (137-145) mmol/L Potassium 3.5 (3.5-5.1) mmol/L Chloride 108 H (98-107) mmol/L Carbon Dioxide 25 (22-30) mmol/L Anion Gap 10.5 (5-15) MEQ/L BUN 10 (9-20) mg/dL Creatinine 0.61 L (0.66-1.25) mg/dL Estimated GFR > 60.0 ML/MIN Glucose 98 (74-106) mg/dL Calcium 7.8 L (8.4-10.2) mg/dL Multi-Disciplinary Progress Notes: Multi-Disciplinary Progress Notes 08/08/19 09:22 Case Management Note by Mokelsea,Jenn spoke with pt. he still plans on going home with to help him. will ocntinue to follow. Initialized on 08/08/19 09:22 - END OF NOTE Assessment/Plan (1) Influenza A Current Visit: Yes Status: Acute Code(s): J10.1 - FLU DUE TO OTH IDENT INFLUENZA VIRUS W OTH RESP MANIFEST (2) Pneumonia Current Visit: Yes Status: Acute Qualifiers: Laterality: right Lung location: lower lobe of lung Assessment & Plan: afebrile, wbc normalized and doing well, has received 5 days of rocephin and zithromax Code(s): J18.9 - PNEUMONIA, UNSPECIFIED ORGANISM (3) Hypoxia Current Visit: Yes Status: Acute Assessment & Plan: add prednisone, continue nebs due to wheezing. attempt to wean oxygen Code(s): R09.02 - HYPOXEMIA
[2019-08-09] MEDS: Klor Con 10 MEQ PO SCH ×2 (09:06→20:33)
[2019-08-09] MEDS: Prozac 20 MG PO SCH (09:06)
[2019-08-09] MEDS: Tamiflu 75MG Capsule PO SCH (09:06)
[2019-08-09] MEDS: ENOXAPARIN SODIUM SQ SCH (09:07)
[2019-08-09] MEDS: DELTASONE 20 MG PO SCH (09:12)
[2019-08-09] MEDS: Pepcid 20 MG VIAL IV SCH ×2 (09:12→20:33)
[2019-08-09] MEDS: Sodium Chloride 0.9% 1000 ML 1,000 ML IV SCH ×2 (09:13→20:33)
[2019-08-09] MEDS: PROTONIX 40 MG IV IV SCH (09:13)
[2019-08-10] MEDS: DUONEB 0.5-3 MG/3 ml Neb IH SCH ×2 (01:19→09:11)
[2019-08-10 06:09] LABS: Hematocrit 40.6 % (42-50); Hemoglobin 13.7 gm/dl (12.5-18.0); Mean Cell Volume 89.2 fl (78-100); Mean Corpuscular Hemoglobin 30.1 pg (26-32); Mean Corpuscular Hgb Concent. 33.7 g/dl (32-36); Mean Platelet Volume 10.2 fl (7.5-11.0); Platelet Count 311 K/mm3 (150-450); Red Blood Count 4.55 M/mm3 (4.1-5.6); Red Cell Distribution Width 13.2 % (11.5-14.0); White Blood Count 8.2 K/mm3 (4.0-10.5)
[2019-08-10] MEDS: Sodium Chloride 0.9% 1000 ML 1,000 ML IV SCH (06:16)
[2019-08-10 06:24] LABS: ALBUMIN 3.2 g/dL (3.5-5.0); ALKALINE PHOSPHATASE 57 U/L (38-126); ANION GAP 9.3 MEQ/L (5-15); BLOOD UREA NITROGEN 10 mg/dL (9-20); CHLORIDE 108 mmol/L (98-107); Calcium 8.3 mg/dL (8.4-10.2); Carbon Dioxide 25 mmol/L (22-30); Creatinine 1 0.61 mg/dL (0.66-1.25); Glucose 94 mg/dL (74-106); Potassium 3.5 mmol/L (3.5-5.1); SGOT/AST 72 U/L (17-59); SGPT/ALT 102 U/L (0-50); SODIUM 139 mmol/L (137-145); Total Protein 6.8 g/dL (6.3-8.2)
[2019-08-10 06:58] LABS: Lymphocytes 30 % (24-44); Monocyte 1 % (0.0-12.0); Neutrophils 69 % (36.-66.); Total Cells Counted 100
[2019-08-10 06:59] LABS: Platelet Estimate NORMAL (NORMAL)
--- NOTE | 2019-08-10 08:02 | PCM.NOTE ---
Date and Time: 08/10/19 08 Subjective Assessment: doing better - Review of Systems Constitutional: No Fever, No Chills Eyes: No Symptoms Ears, Nose, & Throat: No Symptoms Respiratory: No Cough, No Short Of Breath Cardiac: No Chest Pain, No Edema, No Syncope Abdominal/Gastrointestinal: No Abdominal Pain, No Nausea, No Vomiting, No Diarrhea Genitourinary Symptoms: No Dysuria Musculoskeletal: No Back Pain, No Neck Pain Skin: No Rash Neurological: No Dizziness, No Focal Weakness, No Sensory Changes Psychological: No Symptoms Endocrine: No Symptoms Hematologic/Lymphatic: No Symptoms Immunological/Allergic: No Symptoms Objective Exam General Appearance: no apparent distress, alert Neurologic Exam: alert, oriented x 3, cooperative, normal mood/affect, nml cerebellar function, sensation nml, No motor deficits Skin Exam: normal color, warm, dry Eye Exam: PERRL, EOMI, eyes nml inspection Ears, Nose, Throat Exam: normal ENT inspection, pharynx normal, moist mucous membranes Neck Exam: normal inspection, non-tender, supple, full range of motion Respiratory Exam: normal breath sounds, lungs clear, No respiratory distress Cardiovascular Exam: regular rate/rhythm, normal heart sounds Gastrointestinal/Abdomen Exam: soft, No tenderness, No mass Extremity Exam: normal inspection, normal range of motion Back Exam: normal inspection, normal range of motion, No CVA tenderness, No vertebral tenderness Male Genitalia Exam: deferred Rectal Exam: deferred OBJECTIVE DATA Vital Signs: Vital Signs - 24 hr Temp Pulse Resp BP BP Pulse Ox 08/10/19 04:00 97.5 F 91 H 24 156/91 90 L 08/10/19 01:17 95 08/10/19 00:00 98.4 F 82 24 135/77 95 08/09/19 20:00 98.3 F 89 18 155/84 94 L 08/09/19 19:09 97 08/09/19 16:00 97.3 F 81 20 143/93 94 L 08/09/19 13:29 91 L 08/09/19 12:38 82 24 93 L 08/09/19 12:00 97.4 F 88 22 156/90 95 Oxygen-Last 24 hours O2 Percentage 4 Liters = 36% O2 Percentage 4 Liters = 36% Oxygen Flowrate (L/min)-RT 1 Oxygen Flowrate (L/min)-RT 1 Pain Assessment - Last Documented Pain Intensity 0 Pain Scale Used 0-10 Pain Scale Intake and Output: Intake & Output 08/07/19 08/08/19 08/09/19 08/10/19 11:59 11:59 11:59 11:59 Intake Total 3708 3577 4122 2956 Output Total 3000 6000 2300 4950 Balance 805 -4185 182 -1993 Weight 127.9 kg Lab Results: Lab Results-Last 24 Hours 08/10/19 08/10/19 Range/Units 05:32 05:32 WBC 8.2 (4.0-10.5) K/mm3 RBC 4.55 (4.1-5.6) M/mm3 Hgb 13.7 (12.5-18.0) gm/dl Hct 40.6 L (42-50) % MCV 89.2 (78-100) fl MCH 30.1 (26-32) pg MCHC 33.7 (32-36) g/dl RDW 13.2 (11.5-14.0) % Plt Count 311 (150-450) K/mm3 MPV 10.2 H (7.5-11.0) fl Segmented Neutrophils 69 H (36.-66.) % Lymphocytes (Manual) 30 (24-44) % Monocytes (Manual) 1 (0.0-12.0) % Platelet Estimate NORMAL (NORMAL) RBC Morphology NORMAL Sodium 139 (137-145) mmol/L Potassium 3.5 (3.5-5.1) mmol/L Chloride 108 H (98-107) mmol/L Carbon Dioxide 25 (22-30) mmol/L Anion Gap 9.3 (5-15) MEQ/L BUN 10 (9-20) mg/dL Creatinine 0.61 L (0.66-1.25) mg/dL Estimated GFR > 60.0 ML/MIN Glucose 94 (74-106) mg/dL Calcium 8.3 L (8.4-10.2) mg/dL Total Bilirubin 0.40 (0.2-1.3) mg/dL AST 72 H (17-59) U/L ALT 102 H (0-50) U/L Alkaline Phosphatase 57 (38-126) U/L Serum Total Protein 6.8 (6.3-8.2) g/dL Albumin 3.2 L (3.5-5.0) g/dL Assessment/Plan (1) Viral pneumonia, unspecified Current Visit: Yes Status: Acute Assessment & Plan: Chief Complaint Diagnosis HYPOXIA, Influenza A, Viral Pneumonia Allergies Allergy/AdvReac Type Severity Reaction Status Date / Time No Known Drug Allergies Allergy Unverified 08/04/19 10:54 Vital Signs (Last 24 hours) Temp Pulse Resp BP BP Pulse Ox 08/10/19 04:00 97.5 F 91 H 24 156/91 90 L 08/10/19 01:17 95 08/10/19 00:00 98.4 F 82 24 135/77 95 08/09/19 20:00 98.3 F 89 18 155/84 94 L 08/09/19 19:09 97 08/09/19 16:00 97.3 F 81 20 143/93 94 L 08/09/19 13:29 91 L 08/09/19 12:38 82 24 93 L 08/09/19 12:00 97.4 F 88 22 156/90 95 Home Medications Medication Instructions Recorded Confirmed Last Taken Type Amitriptyline HCl 100 mg PO HS 08/04/19 08/04/19 08/03/19 History Fluoxetine HCl 20 mg PO DAILY 08/04/19 08/04/19 08/04/19 History Current Medications Generic Name Dose Route Start Last Admin Trade Name Freq PRN Reason Stop Dose Admin Acetaminophen 650 mg 08/04/19 12:37 Tylenol 325 Mg PO 09/03/19 12:36 Q4H PRN PRN PAIN AND/OR FEVER Albuterol/Ipratropium 3 ml 08/04/19 13:00 08/10/19 01:19 Duoneb 0.5-3 Mg/3 Ml Neb IH 09/03/19 12:59 3 ml Q6HRT CAROLE Administration Amitriptyline HCl 100 mg 08/04/19 22:00 08/09/19 20:33 Amitriptyline Hcl 50 Mg Tablet PO 09/03/19 21:59 100 mg HS CAROLE Administration Enoxaparin Sodium 40 mg 08/04/19 13:00 08/09/19 09:07 Enoxaparin Sodium SQ 09/03/19 12:59 40 mg DAILY CAROLE Administration Famotidine 20 mg 08/04/19 22:00 08/09/19 20:33 Pepcid 20 Mg Vial IV 09/03/19 21:59 20 mg Q12HT CAROLE Administration Fluoxetine HCl 20 mg 08/05/19 10:00 08/09/19 09:06 Prozac 20 Mg PO 09/04/19 09:59 20 mg DAILY CAROLE Administration Sodium Chloride 1,000 mls @ 100 mls/hr 08/04/19 12:37 08/10/19 06:16 Sodium Chloride 0.9% 1000 Ml IV 09/03/19 12:36 100 mls/hr .Q10H CAROLE Administration Ondansetron HCl 4 mg 08/04/19 16:52 08/04/19 16:57 Zofran 4 Mg/2 Ml Vial IV 09/03/19 16:51 4 mg Q4H PRN PRN Administration NAUSEA/VOMITING Pantoprazole Sodium 40 mg 08/04/19 13:00 08/09/19 09:13 Protonix 40 Mg Iv IV 09/03/19 12:59 40 mg Q24H10 CAROLE Administration Potassium Chloride 10 meq 08/06/19 10:00 08/09/19 20:33 Klor Con 10 Meq PO 09/05/19 09:59 10 meq BID CAROLE Administration Prednisone 20 mg 08/09/19 10:00 08/09/19 09:12 Deltasone 20 Mg PO 09/08/19 09:59 20 mg DAILY CAROLE Administration Discontinued Medications Generic Name Dose Route Start Last Admin Trade Name Freq PRN Reason Stop Dose Admin Acetaminophen 975 mg 08/04/19 11:29 08/04/19 11:31 Feverall 325 Mg WA 08/04/19 11:30 975 mg STAT STA Administration Acetaminophen Confirm 08/04/19 11:31 Feverall 650 Mg Administered 08/04/19 11:32 Dose 1,300 mg .ROUTE .STK-MED ONE Sodium Chloride 1,000 mls @ 999 mls/hr 08/04/19 11:00 08/04/19 12:15 Sodium Chloride 0.9% 1000 Ml IV 08/04/19 14:00 Infused .Q1H1M CAROLE Infusion Ceftriaxone Sodium/Dextrose 1 g in 50 mls @ 100 mls/hr 08/04/19 11:14 11:53 Rocephin 1 Gm-D5w 50 Ml Bag IV 08/04/19 11:43 Infused STAT STA Infusion Azithromycin 500 mg in 250 mls @ 250 mls/hr 08/04/19 11:14 08/04/19 12:17 Zithromax 500 Mg/ 250 Ml Nacl Premix IV 08/04/19 12:13 Infused STAT STA Infusion Azithromycin Confirm 08/04/19 11:19 Zithromax 500 Mg/ 250 Ml Nacl Premix Administered 08/04/19 11:20 Dose 500 mg in 250 mls @ ud IV .STK-MED ONE Ceftriaxone Sodium/Dextrose Confirm 08/04/19 11:19 Rocephin 1 Gm-D5w 50 Ml Bag Administered 08/04/19 11:20 Dose 1 g in 50 mls @ ud IV .STK-MED ONE Sodium Chloride Confirm 08/04/19 11:04 Sodium Chloride 0.9% 1000 Ml Administered 08/04/19 11:05 Dose 1,000 mls @ ud .ROUTE .STK-MED ONE Sodium Chloride Confirm 08/04/19 11:10 Sodium Chloride 0.9% 1000 Ml Administered 08/04/19 11:11 Dose 2,000 mls @ ud .ROUTE .STK-MED ONE Azithromycin 500 mg in 250 mls @ 250 mls/hr 08/05/19 10:00 08/08/19 09:51 Zithromax 500 Mg/ 250 Ml Nacl Premix IV 09/04/19 09:59 250 mls/hr Q24H10 CAROLE Administration Ceftriaxone Sodium/Dextrose 1 g in 50 mls @ 100 mls/hr 08/05/19 10:00 10:40 Rocephin 1 Gm-D5w 50 Ml Bag IV 09/04/19 09:59 100 mls/hr Q24H10 CAROLE Administration Oseltamivir Phosphate 75 mg 08/04/19 12:10 08/04/19 12:14 Tamiflu 75mg Capsule PO 08/04/19 12:11 75 mg STAT ONE Administration Oseltamivir Phosphate Confirm 08/04/19 12:13 Tamiflu 75mg Capsule Administered 08/04/19 12:14 Dose 75 mg PO .STK-MED ONE Oseltamivir Phosphate 75 mg 08/04/19 22:00 08/09/19 09:06 Tamiflu 75mg Capsule PO 08/09/19 21:59 75 mg BID CAROLE Administration Potassium Chloride 40 meq 08/07/19 07:54 08/07/19 09:34 Klor Con 10 Meq PO 08/07/19 07:55 40 meq STAT ONE Administration Potassium Chloride 40 meq 08/07/19 10:00 08/07/19 10:24 Klor Con 10 Meq PO 08/07/19 10:01 Not Given STAT ONE Intake & Output (Last 24 hours) 08/07/19 08/08/19 08/09/19 08/10/19 11:59 11:59 11:59 11:59 Intake Total 3708 3577 4122 2956 Output Total 3000 6000 2300 4950 Balance 302 -5361 [id number] Weight 127.9 kg Microbiology Results (Last 24 hours) 08/04/19 11:15 Blood Blood Culture Gram Stain - Final Not Reportable 08/04/19 11:15 Blood Blood Culture - Final NO GROWTH 08/04/19 11:10 Blood Blood Culture Gram Stain - Final Not Reportable 08/04/19 11:10 Blood Blood Culture - Final NO GROWTH Laboratory Results (Last 24 hours) 08/10/19 08/10/19 05:32 05:32 WBC 8.2 RBC 4.55 Hgb 13.7 Hct 40.6 L MCV 89.2 MCH 30.1 MCHC 33.7 RDW 13.2 Plt Count 311 MPV 10.2 H Segmented Neutrophils 69 H Lymphocytes (Manual) 30 Monocytes (Manual) 1 Platelet Estimate NORMAL RBC Morphology NORMAL Sodium 139 Potassium 3.5 Chloride 108 H Carbon Dioxide 25 Anion Gap 9.3 BUN 10 Creatinine 0.61 L Estimated GFR > 60.0 Glucose 94 Calcium 8.3 L Total Bilirubin 0.40 AST 72 H ALT 102 H Alkaline Phosphatase 57 Serum Total Protein 6.8 Albumin 3.2 L Orders (Last 24 hours) Category Date Time Status Recertification ROUTINE Admission 08/09/19 09:00 Active CBC W DIFF AM.LAB Lab 08/10/19 05:32 Completed CMP AM.LAB Lab 08/10/19 05:32 Completed Manual Differential NC Routine Lab 08/10/19 05:32 Completed Prednisone 20 mg [Deltasone 20 mg] Med 08/09/19 10:00 Active 20 mg PO DAILY Code(s): J12.9 - VIRAL PNEUMONIA, UNSPECIFIED (2) Influenza A Current Visit: Yes Status: Resolved Code(s): J10.1 - FLU DUE TO OTH IDENT INFLUENZA VIRUS W OTH RESP MANIFEST
[2019-08-10 08:50] VITALS: BP 148/83; O2SAT 93
[2019-08-10] MEDS: Prozac 20 MG PO SCH (09:17)
[2019-08-10] MEDS: DELTASONE 20 MG PO SCH (09:17)
[2019-08-10] MEDS: ENOXAPARIN SODIUM SQ SCH (09:18)
[2019-08-10] MEDS: Klor Con 10 MEQ PO SCH (09:18)
[2019-08-10] MEDS: Pepcid 20 MG VIAL IV SCH (09:18)
[2019-08-10] MEDS: PROTONIX 40 MG IV IV SCH (09:18)
[2019-08-10 09:30] VITALS: PULSE 84
--- NOTE | 2019-08-10 10:33 | PCM.DS ---
Discharge Summary Date of Admission: 08/05/19 08:54 Admitting Physician: EDILMA BRITO Primary Care Provider: NO FAMILY DOCTOR Allergies Allergies No Known Drug Allergies Allergy (Unverified 08/04/19 10:54) Hospital Summary - Hospital Course Hospital Course: Chief Complaint Diagnosis HYPOXIA, Influenza A, Viral Pneumonia Allergies Allergy/AdvReac Type Severity Reaction Status Date / Time No Known Drug Allergies Allergy Unverified 08/04/19 10:54 Vital Signs (Last 24 hours) Temp Pulse Resp BP BP Pulse Ox 08/10/19 09:16 84 16 93 L 08/10/19 08:00 97.7 F 88 15 148/83 93 L 08/10/19 04:00 97.5 F 91 H 24 156/91 90 L 08/10/19 01:17 95 08/10/19 00:00 98.4 F 82 24 135/77 95 08/09/19 20:00 98.3 F 89 18 155/84 94 L 08/09/19 19:09 97 08/09/19 16:00 97.3 F 81 20 143/93 94 L 08/09/19 13:29 91 L 08/09/19 12:38 82 24 93 L 08/09/19 12:00 97.4 F 88 22 156/90 95 Home Medications Medication Instructions Recorded Confirmed Last Taken Type Amitriptyline HCl 100 mg PO HS 08/04/19 08/04/19 08/03/19 History Fluoxetine HCl 20 mg PO DAILY 08/04/19 08/04/19 08/04/19 History Current Medications Generic Name Dose Route Start Last Admin Trade Name Freq PRN Reason Stop Dose Admin Acetaminophen 650 mg 08/04/19 12:37 Tylenol 325 Mg PO 09/03/19 12:36 Q4H PRN PRN PAIN AND/OR FEVER Albuterol/Ipratropium 3 ml 08/04/19 13:00 08/10/19 09:11 Duoneb 0.5-3 Mg/3 Ml Neb IH 09/03/19 12:59 3 ml Q6HRT CAROLE Administration Amitriptyline HCl 100 mg 08/04/19 22:00 08/09/19 20:33 Amitriptyline Hcl 50 Mg Tablet PO 09/03/19 21:59 100 mg HS CAROLE Administration Enoxaparin Sodium 40 mg 08/04/19 13:00 08/10/19 09:18 Enoxaparin Sodium SQ 09/03/19 12:59 40 mg DAILY CAROLE Administration Famotidine 20 mg 08/04/19 22:00 08/10/19 09:18 Pepcid 20 Mg Vial IV 09/03/19 21:59 20 mg Q12HT CAROLE Administration Fluoxetine HCl 20 mg 08/05/19 10:00 08/10/19 09:17 Prozac 20 Mg PO 09/04/19 09:59 20 mg DAILY CAROLE Administration Sodium Chloride 1,000 mls @ 100 mls/hr 08/04/19 12:37 08/10/19 06:16 Sodium Chloride 0.9% 1000 Ml IV 09/03/19 12:36 100 mls/hr .Q10H CAROLE Administration Ondansetron HCl 4 mg 08/04/19 16:52 08/04/19 16:57 Zofran 4 Mg/2 Ml Vial IV 09/03/19 16:51 4 mg Q4H PRN PRN Administration NAUSEA/VOMITING Pantoprazole Sodium 40 mg 08/04/19 13:00 08/10/19 09:18 Protonix 40 Mg Iv IV 09/03/19 12:59 40 mg Q24H10 CAROLE Administration Potassium Chloride 10 meq 08/06/19 10:00 08/10/19 09:18 Klor Con 10 Meq PO 09/05/19 09:59 10 meq BID CAROLE Administration Prednisone 20 mg 08/09/19 10:00 08/10/19 09:17 Deltasone 20 Mg PO 09/08/19 09:59 20 mg DAILY CAROLE Administration Discontinued Medications Generic Name Dose Route Start Last Admin Trade Name Freq PRN Reason Stop Dose Admin Acetaminophen 975 mg 08/04/19 11:29 08/04/19 11:31 Feverall 325 Mg ME 08/04/19 11:30 975 mg STAT STA Administration Acetaminophen Confirm 08/04/19 11:31 Feverall 650 Mg Administered 08/04/19 11:32 Dose 1,300 mg .ROUTE .STK-MED ONE Sodium Chloride 1,000 mls @ 999 mls/hr 08/04/19 11:00 08/04/19 12:15 Sodium Chloride 0.9% 1000 Ml IV 08/04/19 14:00 Infused .Q1H1M CAROLE Infusion Ceftriaxone Sodium/Dextrose 1 g in 50 mls @ 100 mls/hr 08/04/19 11:14 11:53 Rocephin 1 Gm-D5w 50 Ml Bag IV 08/04/19 11:43 Infused STAT STA Infusion Azithromycin 500 mg in 250 mls @ 250 mls/hr 08/04/19 11:14 08/04/19 12:17 Zithromax 500 Mg/ 250 Ml Nacl Premix IV 08/04/19 12:13 Infused STAT STA Infusion Azithromycin Confirm 08/04/19 11:19 Zithromax 500 Mg/ 250 Ml Nacl Premix Administered 08/04/19 11:20 Dose 500 mg in 250 mls @ ud IV .STK-MED ONE Ceftriaxone Sodium/Dextrose Confirm 08/04/19 11:19 Rocephin 1 Gm-D5w 50 Ml Bag Administered 08/04/19 11:20 Dose 1 g in 50 mls @ ud IV .STK-MED ONE Sodium Chloride Confirm 08/04/19 11:04 Sodium Chloride 0.9% 1000 Ml Administered 08/04/19 11:05 Dose 1,000 mls @ ud .ROUTE .STK-MED ONE Sodium Chloride Confirm 08/04/19 11:10 Sodium Chloride 0.9% 1000 Ml Administered 08/04/19 11:11 Dose 2,000 mls @ ud .ROUTE .STK-MED ONE Azithromycin 500 mg in 250 mls @ 250 mls/hr 08/05/19 10:00 08/08/19 09:51 Zithromax 500 Mg/ 250 Ml Nacl Premix IV 09/04/19 09:59 250 mls/hr Q24H10 CAROLE Administration Ceftriaxone Sodium/Dextrose 1 g in 50 mls @ 100 mls/hr 08/05/19 10:00 10:40 Rocephin 1 Gm-D5w 50 Ml Bag IV 09/04/19 09:59 100 mls/hr Q24H10 CAROLE Administration Oseltamivir Phosphate 75 mg 08/04/19 12:10 08/04/19 12:14 Tamiflu 75mg Capsule PO 08/04/19 12:11 75 mg STAT ONE Administration Oseltamivir Phosphate Confirm 08/04/19 12:13 Tamiflu 75mg Capsule Administered 08/04/19 12:14 Dose 75 mg PO .STK-MED ONE Oseltamivir Phosphate 75 mg 08/04/19 22:00 08/09/19 09:06 Tamiflu 75mg Capsule PO 08/09/19 21:59 75 mg BID CAROLE Administration Potassium Chloride 40 meq 08/07/19 07:54 08/07/19 09:34 Klor Con 10 Meq PO 08/07/19 07:55 40 meq STAT ONE Administration Potassium Chloride 40 meq 08/07/19 10:00 08/07/19 10:24 Klor Con 10 Meq PO 08/07/19 10:01 Not Given STAT ONE Intake & Output (Last 24 hours) 08/07/19 08/08/19 08/09/19 08/10/19 11:59 11:59 11:59 11:59 Intake Total 3708 3577 4122 3196 Output Total 3000 6000 2300 4950 Balance 708 -0583 1822 -1754 Weight 127.9 kg Microbiology Results (Last 24 hours) 08/04/19 11:15 Blood Blood Culture Gram Stain - Final Not Reportable 08/04/19 11:15 Blood Blood Culture - Final NO GROWTH 08/04/19 11:10 Blood Blood Culture Gram Stain - Final Not Reportable 08/04/19 11:10 Blood Blood Culture - Final NO GROWTH Laboratory Results (Last 24 hours) 08/10/19 08/10/19 05:32 05:32 WBC 8.2 RBC 4.55 Hgb 13.7 Hct 40.6 L MCV 89.2 MCH 30.1 MCHC 33.7 RDW 13.2 Plt Count 311 MPV 10.2 H Segmented Neutrophils 69 H Lymphocytes (Manual) 30 Monocytes (Manual) 1 Platelet Estimate NORMAL RBC Morphology NORMAL Sodium 139 Potassium 3.5 Chloride 108 H Carbon Dioxide 25 Anion Gap 9.3 BUN 10 Creatinine 0.61 L Estimated GFR > 60.0 Glucose 94 Calcium 8.3 L Total Bilirubin 0.40 AST 72 H ALT 102 H Alkaline Phosphatase 57 Serum Total Protein 6.8 Albumin 3.2 L Orders (Last 24 hours) Category Date Time Status CBC W DIFF AM.LAB Lab 08/10/19 05:32 Completed CMP AM.LAB Lab 08/10/19 05:32 Completed Manual Differential NC Routine Lab 08/10/19 05:32 Completed Prednisone 20 mg [Deltasone 20 mg] Med 08/09/19 10:00 Active 20 mg PO DAILY - Vitals & Intake/Output Vital Signs: Vital Signs Temperature 97.7 F 08/10/19 08:00 Pulse Rate 84 08/10/19 09:16 Respiratory Rate 16 08/10/19 09:16 Blood Pressure 148/83 08/10/19 08:00 O2 Sat by Pulse Oximetry 93 L 08/10/19 09:16 Oxygen-Last Documented O2 Percentage 4 Liters = 36% Intake & Output: Intake & Output 08/07/19 08/08/19 08/09/19 08/10/19 11:59 11:59 11:59 11:59 Intake Total 3708 3577 4122 3196 Output Total 4805 6000 2304 1000 Balance 305 -2036 4992 -9423 Weight 127.9 kg - Lab Result Diagrams: 08/10/19 05:32 08/10/19 05:32 Lab Results-Last 24 Hrs: Lab Results-Last 24 Hours 08/10/19 08/10/19 Range/Units 05:32 05:32 WBC 8.2 (4.0-10.5) K/mm3 RBC 4.55 (4.1-5.6) M/mm3 Hgb 13.7 (12.5-18.0) gm/dl Hct 40.6 L (42-50) % MCV 89.2 (78-100) fl MCH 30.1 (26-32) pg MCHC 33.7 (32-36) g/dl RDW 13.2 (11.5-14.0) % Plt Count 311 (150-450) K/mm3 MPV 10.2 H (7.5-11.0) fl Segmented Neutrophils 69 H (36.-66.) % Lymphocytes (Manual) 30 (24-44) % Monocytes (Manual) 1 (0.0-12.0) % Platelet Estimate NORMAL (NORMAL) RBC Morphology NORMAL Sodium 139 (137-145) mmol/L Potassium 3.5 (3.5-5.1) mmol/L Chloride 108 H (98-107) mmol/L Carbon Dioxide 25 (22-30) mmol/L Anion Gap 9.3 (5-15) MEQ/L BUN 10 (9-20) mg/dL Creatinine 0.61 L (0.66-1.25) mg/dL Estimated GFR > 60.0 ML/MIN Glucose 94 (74-106) mg/dL Calcium 8.3 L (8.4-10.2) mg/dL Total Bilirubin 0.40 (0.2-1.3) mg/dL AST 72 H (17-59) U/L ALT 102 H (0-50) U/L Alkaline Phosphatase 57 (38-126) U/L Serum Total Protein 6.8 (6.3-8.2) g/dL Albumin 3.2 L (3.5-5.0) g/dL Micro Results-Entire Visit: Microbiology 08/04/19 11:15 Blood Culture Gram Stain - Final Blood Not Reportable Blood Culture - Final NO GROWTH 08/04/19 11:10 Blood Culture Gram Stain - Final Blood Not Reportable Blood Culture - Final NO GROWTH 08/04/19 11:08 Urine Culture - Final Catherized NO GROWTH - Procedures and Test Procedures and Tests throughout Hospitalization: Therapy Orders & Screens 08/04/19 12:37 Oxygen Nasal Cannula 3 lpm Comment: 08/04/19 15:01 Peak Expiratory Flow Rate ONCE Comment: Reason For Exam: Diagnosis: Influenza A, Viral Pneumonia Respiratory Therapy Assessment DAILY Comment: Diagnosis: Influenza A, Viral Pneumonia 08/05/19 07:50 Oxygen High Flow per RT 50% Comment: Diagnosis: Influenza A, Viral Pneumonia 08/06/19 16:09 Flutter Therapy UD Comment: Diagnosis: HYPOXIA, Influenza A, Viral Pneumonia Discharge Exam General Appearance: no apparent distress, alert Neurologic Exam: alert, oriented x 3, cooperative, normal mood/affect, nml cerebellar function, sensation nml, No motor deficits Eye Exam: PERRL, EOMI, eyes nml inspection Ears, Nose, Throat Exam: normal ENT inspection, pharynx normal, moist mucous membranes Neck Exam: normal inspection, non-tender, supple, full range of motion Respiratory Exam: normal breath sounds, lungs clear, No respiratory distress Cardiovascular Exam: regular rate/rhythm, normal heart sounds Gastrointestinal/Abdomen Exam: soft, No tenderness, No mass Male Genitalia Exam: deferred Rectal Exam: deferred Back Exam: normal inspection, normal range of motion, No CVA tenderness, No vertebral tenderness Extremity Exam: normal inspection, normal range of motion Skin Exam: normal color, warm, dry Final Diagnosis/Problem List - Final Discharge Diagnosis/Problem (1) Viral pneumonia, unspecified Current Visit: Yes Status: Resolved Code(s): J12.9 - VIRAL PNEUMONIA, UNSPECIFIED (2) Influenza A Current Visit: Yes Status: Resolved Code(s): J10.1 - FLU DUE TO OTH IDENT INFLUENZA VIRUS W OTH RESP MANIFEST (3) Multiple sclerosis Current Visit: Yes Status: Chronic Code(s): G35 - MULTIPLE SCLEROSIS - Discharge Discharge Date: 08/10/19 Disposition: Home, Self-Care Condition: Stable Prescriptions: No Action Fluoxetine HCl 20 mg PO DAILY Amitriptyline HCl 100 mg PO HS Follow up with: DOCTOR,NO FAMILY [Primary Care Provider] - 1 Week
== END 2019-08-10 12:30 | disposition home or self-care (01) | DRG 195 ==
LOC: ED 10:49 → MED SURG 12:33 → OBSVTOIN 08-05 08:54
PROVIDERS: ADMIT Family Medicine; ATTEND Family Medicine
DX: J12.9 Viral pneumonia, unspecified (principal); J09.X2 Influenza due to identified novel influenza A virus with other respiratory manifestations; G35 Multiple sclerosis; E87.6 Hypokalemia; R09.02 Hypoxemia; Z79.899 Other long term (current) drug therapy
CPT/HCPCS: 36415; 36600; 71045; 80048; 80053; 81001; 82375; 82803; 83605; 83735; 85025; 85027; 85610; 85730; 87040; 87086; 87631; 93041; 93268; 94150; 94640; 94667; 94668; 94760; 94762; 96360; 96361; 96365; 96368; 96372; 99291; G0378; 36000; 99285; J0456; J0696; J1650; J2405; A9270-GY

== ENCOUNTER 2020-05-03 22:42 | Inpatient (IN) | payer MEDICARE, OTHER ==
[2020-05-03] MEDS ORDERED: Zofran 4 MG/2 ML VIAL IV ONE (22:48)
[2020-05-03] MEDS ORDERED: Sodium Chloride 0.9% 1000 ML 1,000 ML IV STA (22:51)
--- NOTE | 2020-05-03 22:54 | ERPHSYRPT ---
- History of Present Illness Time Seen by Provider: 05/03/20 22:43 Historian: patient Exam Limitations: no limitations Patient Subjective Stated Complaint: fever Triage Nursing Assessment: Patient brought into ED via EMS and transferred to bed with assist of 3. Patient A+O X 3. Patient's skin pink, warm and dry. Patient complains of fever, body aches, Nausea and abdominal pain. Patient denies diarrhea or vomiting. Patient states he is weaker than normal and was unable to get out of motorized w/c. Patient has hx of MS and unable to ambulate. Physician History: Today pt c/o nausea, lower abdominal pain, subjective fever, mild shortness of air, headache, right lower back pain and body aches. Allergies/Adverse Reactions: No Known Drug Allergies Allergy (Verified 05/03/20 22:44) Home Medications: Amitriptyline HCl 100 mg PO HS 08/04/19 [History] Fluoxetine HCl 20 mg PO DAILY 08/04/19 [History] Hx Influenza Vaccination/Date Given: No Hx Pneumococcal Vaccination/Date Given: No Immunizations Up to Date: Yes Travel Risk - International Travel Have you traveled outside of the country in past 3 weeks: No - Coronavirus Screening Are you exhibiting any of the following symptoms?: Yes Symptoms: Fever, Headaches/Body Aches/Fatigue Close contact with a COVID-19 positive Pt in past 14-21 Days: No - Review of Systems Constitutional: Fever Respiratory: Dyspnea Cardiac: No Chest Pain Abdominal/Gastrointestinal: Abdominal Pain, Nausea Musculoskeletal: Back Pain, Myalgias Neurological: Headache All Other Systems: Reviewed and Negative - Past Medical History Neurological History: Peripheral Neuropathy, Other ENT History: No Pertinent History Cardiac History: No Pertinent History Respiratory History: No Pertinent History Endocrine Medical History: No Pertinent History Musculoskeletal History: No Pertinent History GI Medical History: No Pertinent History History: No Pertinent History Psycho-Social History: Depression Male Reproductive Disorders: No Pertinent History Other Medical History: Multiple sclerosis, neuropathy, - Past Surgical History Past Surgical History: No Neuro Surgical History: No Pertinent History Cardiac: No Pertinent History Respiratory: No Pertinent History Gastrointestinal: No Pertinent History Genitourinary: No Pertinent History Musculoskeletal: No Pertinent History Male Surgical History: No Pertinent History - Social History Smoking Status: Never smoker Exposure to second hand smoke: No Drug Use: none Patient Lives Alone: No - Nursing Vital Signs Nursing Vital Signs: Initial Vital Signs Temperature 99.9 F 05/03/20 22:45 Pulse Rate 103 H 05/03/20 22:45 Respiratory Rate 20 05/03/20 22:45 Blood Pressure 148/80 05/03/20 22:45 O2 Sat by Pulse Oximetry 95 05/03/20 22:45 Pain Scale Pain Intensity 0 - Physical Exam General Appearance: alert Eye Exam: PERRL/EOMI Ears, Nose, Throat Exam: TMs normal, pharyngeal erythema (mild) Neck Exam: normal inspection Respiratory Exam: normal breath sounds Cardiovascular Exam: normal heart sounds Gastrointestinal/Abdomen Exam: soft, normal bowel sounds Back Exam: normal inspection Extremity Exam: No normal range of motion (pt has MS and has weakness in all extremities.) Neurologic Exam: alert, cooperative Skin Exam: warm, dry SpO2 Interpretation: normal SpO2: 95 O2 Delivery: Room Air - Course Nursing assessment & vital signs reviewed: Yes EKG Interpreted by Me: RATE (101), Sinus Tach, Non-specific ST Changes, Other (unifocal PVC's.) - Radiology Exams Chest X-ray Interpretation: Teleradiologist Report (Decreased but still residual subsegmental atelectasis at the right lung base but there may be new mild blun ting of the right costophrenic angle, cannot exclude small right pleural effusion.) - CT Exams Abdomen/Pelvis CT Interpretation: Tele-radiologist Report (There is a 3 mm calculus at the right ureterovesical junction with mild right obstructive uropathy. There is additional nonobstructive right nephrolithiasis.) Ordered Tests: Active Orders 24 hr Category Date Time Status Bedrest ROUTINE Activity 05/04/20 02:09 Ordered Skilled Trades Teacher STAT Care 05/03/20 22:51 Active Code Status Order ROUTINE Care 05/04/20 02:06 Ordered Conn [Catheter-Gifford Conn] STAT Care 05/03/20 23:50 Active IV Care Q6H Care 05/04/20 02:06 Ordered IV Insertion STAT Care 05/03/20 22:48 Active Intake and Output Q12H Care 05/04/20 02:[address] in Observation ROUTINE Care 05/04/20 02:06 Ordered Strain Urine .as ordered Care 05/04/20 02:05 Ordered Telemetry q6h Care 05/04/20 02:05 Ordered Vital Signs Q4H Care 05/04/20 02:05 Ordered Weight,Daily 0600 Care 05/04/20 02:05 Ordered House Regular Diet Diet 05/04/20 Breakfast Ordered ABDOMEN AND PELVIS W/0 CONTRAS [CT] Stat Exams 05/04/20 00:15 Taken CHEST 1 VIEW (PORTABLE) Stat Exams 05/03/20 22:49 Taken AMYLASE Stat Lab 05/03/20 23:10 Completed CBC W DIFF AM.LAB Lab 05/04/20 04:00 Ordered CBC W DIFF Stat Lab 05/03/20 23:10 Completed CMP AM.LAB Lab 05/04/20 04:00 Ordered CMP Stat Lab 05/03/20 23:10 Completed CULTURE,SPUTUM Stat Lab 05/03/20 22:51 Uncollected D-DIMER QUANTITATIVE Stat Lab 05/03/20 22:51 Completed Erythrocyte Sedimentation Rate Stat Lab 05/03/20 22:53 Completed LIPASE Stat Lab 05/03/20 23:10 Completed Lactic Acid Stat Lab 05/03/20 22:51 Completed MAGNESIUM Stat Lab 05/03/20 23:10 Completed NT PRO BNP Stat Lab 05/03/20 23:10 Completed TROPONIN Q3H Lab 05/03/20 23:00 Completed TROPONIN Q3H Lab 05/04/20 02:00 Ordered TROPONIN Q3H Lab 05/04/20 05:00 Ordered TROPONIN Q3H Lab 05/04/20 08:00 Ordered TROPONIN Q3H Lab 05/04/20 11:00 Ordered VENOUS BLOOD GAS Stat Lab 05/03/20 22:51 Completed EKG REPEAT IN AM RT 05/04/20 06:00 Ordered Pulse Oximetry CONTINUOUS RT 05/04/20 02:10 Ordered Medication Summary Generic Name Dose Route Start Last Admin Trade Name Freq PRN Reason Stop Dose Admin Ceftriaxone Sodium/Dextrose 1 g in 50 mls @ 100 mls/hr 05/04/20 01:46 05/04/20 01:54 Rocephin 1 Gm-D5w 50 Ml Bag IV 05/04/20 02:15 100 mls/hr STAT STA 100 mls/hr Administration Discontinued Medications Generic Name Dose Route Start Last Admin Trade Name Freq PRN Reason Stop Dose Admin Acetaminophen 650 mg 05/04/20 00:51 05/04/20 01:22 Tylenol 325 Mg PO 05/04/20 00:52 650 mg STAT ONE Administration Acetaminophen Confirm 05/04/20 01:21 Tylenol 325 Mg Administered 05/04/20 01:22 Dose 650 mg .ROUTE .STK-MED ONE Sodium Chloride 1,000 mls @ 999 mls/hr 05/03/20 22:51 05/04/20 01:43 Sodium Chloride 0.9% 1000 Ml IV 05/03/20 23:51 Infused .Q1H1M STA Infusion Sodium Chloride Confirm 05/03/20 22:57 Sodium Chloride 0.9% 1000 Ml Administered 05/03/20 22:58 Dose 1,000 mls @ ud .ROUTE .STK-MED ONE Sodium Chloride Confirm 05/04/20 01:30 Sodium Chloride 0.9% 1000 Ml Administered 05/04/20 01:31 Dose 1,000 mls @ ud .ROUTE .STK-MED ONE Ceftriaxone Sodium/Dextrose Confirm 05/04/20 01:53 Rocephin 1 Gm-D5w 50 Ml Bag Administered 05/04/20 01:54 Dose 1 g in 50 mls @ ud IV .STK-MED ONE Ondansetron HCl 4 mg 05/03/20 22:48 05/03/20 22:59 Zofran 4 Mg/2 Ml Vial IV 05/03/20 22:49 4 mg STAT ONE Administration Ondansetron HCl Confirm 05/03/20 22:57 Zofran 4 Mg/2 Ml Vial Administered 05/03/20 22:58 Dose 4 mg .ROUTE .STK-MED ONE Lab/Rad Data: Laboratory Result Diagrams 05/03/20 23:10 05/03/20 23:10 Laboratory Results 05/04/20 05/04/20 05/04/20 Range/Units 00:00 00:00 00:00 WBC (4.0-10.5) K/mm3 RBC (4.1-5.6) M/mm3 Hgb (12.5-18.0) gm/dl Hct (42-50) % MCV (78-100) fl MCH (26-32) pg MCHC (32-36) g/dl RDW (11.5-14.0) % Plt Count (150-450) K/mm3 MPV (7.5-11.0) fl Gran % (36.0-66.0) % Eos # (Auto) (0-0.5) Absolute Lymphs (auto) (1.0-4.6) Absolute Monos (auto) (0.0-1.3) Lymphocytes % (24.0-44.0) % Monocytes % (0.0-12.0) % Eosinophils % (0.00-5.0) % Basophils % (0.0-0.4) % Absolute Granulocytes (1.4-6.9) Basophils # (0-0.4) ESR 8 (0-15) mm/hr D-Dimer 406 (215-500) ng/mL pO2/FiO2 Ratio % VBG pH (7.32-7.42) VBG pCO2 at Pat Temp (42-55) mm/Hg VBG pO2 at Pat Temp (25-40) mm/Hg VBG HCO3 (22-28) meq/L VBG O2 Sat (Sampson) (95-100) VBG Base Excess (-2.0-2.0) VBG Hemoglobin VBG Carboxyhemoglobin (0.0-6.9) % T HGB POC Potassium (3.5-5.1) Sodium (137-145) mmol/L Potassium (3.5-5.1) mmol/L Chloride (98-107) mmol/L Carbon Dioxide (22-30) mmol/L Anion Gap (5-15) MEQ/L BUN (9-20) mg/dL Creatinine (0.66-1.25) mg/dL Estimated GFR ML/MIN Glucose (74-106) mg/dL Lactic Acid (0.4-2.0) Calcium (8.4-10.2) mg/dL Magnesium (1.6-2.3) mg/dL Total Bilirubin (0.2-1.3) mg/dL AST (17-59) U/L ALT (0-50) U/L Alkaline Phosphatase (38-126) U/L Troponin I < 0.012 (0.000-0.034) ng/mL NT-Pro-B Natriuret Pep (0-900) pg/mL Serum Total Protein (6.3-8.2) g/dL Albumin (3.5-5.0) g/dL Amylase (30-110) U/L Lipase (23-300) U/L Urine Color (YELLOW) Urine Appearance (CLEAR) Urine pH (5-6) Ur Specific [place] (1.005-1.025) Urine Protein (Negative) Urine Ketones (NEGATIVE) Urine Blood (0-5) Justen/ul Urine Nitrite (NEGATIVE) Urine Bilirubin (NEGATIVE) Urine Urobilinogen (0-1) mg/dL Ur Leukocyte Esterase (NEGATIVE) Urine WBC (Auto) (0-5) /HPF Urine RBC (Auto) (0-2) /HPF U Epithel Cells (Auto) (FEW) /HPF Urine Bacteria (Auto) (NEGATIVE) /HPF Urine Culture Reflexed (NO) Urine Glucose (NEGATIVE) mg/dL Monoscreen (Negative) Group A Strep Antibody (NEGATIVE) 05/03/20 05/03/20 05/03/20 Range/Units 23:10 23:10 23:10 WBC 11.9 H (4.0-10.5) K/mm3 RBC 5.05 (4.1-5.6) M/mm3 Hgb 15.4 (12.5-18.0) gm/dl Hct 46.1 (42-50) % MCV 91.3 (78-100) fl MCH 30.5 (26-32) pg MCHC 33.4 (32-36) g/dl RDW 13.9 (11.5-14.0) % Plt Count 302 (150-450) K/mm3 MPV 10.7 (7.5-11.0) fl Gran % 83.8 H (36.0-66.0) % Eos # (Auto) 0.01 (0-0.5) Absolute Lymphs (auto) 0.65 L (1.0-4.6) Absolute Monos (auto) 1.24 (0.0-1.3) Lymphocytes % 5.4 L (24.0-44.0) % Monocytes % 10.4 (0.0-12.0) % Eosinophils % 0.1 (0.00-5.0) % Basophils % 0.3 (0.0-0.4) % Absolute Granulocytes 10.01 H (1.4-6.9) Basophils # 0.03 (0-0.4) ESR (0-15) mm/hr D-Dimer (215-500) ng/mL pO2/FiO2 Ratio % VBG pH (7.32-7.42) VBG pCO2 at Pat Temp (42-55) mm/Hg VBG pO2 at Pat Temp (25-40) mm/Hg VBG HCO3 (22-28) meq/L VBG O2 Sat (Sampson) (95-100) VBG Base Excess (-2.0-2.0) VBG Hemoglobin VBG Carboxyhemoglobin (0.0-6.9) % T HGB POC Potassium (3.5-5.1) Sodium 137 (137-145) mmol/L Potassium 3.8 (3.5-5.1) mmol/L Chloride 101 (98-107) mmol/L Carbon Dioxide 28 (22-30) mmol/L Anion Gap 12.0 (5-15) MEQ/L BUN 17 (9-20) mg/dL Creatinine 0.89 (0.66-1.25) mg/dL Estimated GFR > 60.0 ML/MIN Glucose 103 (74-106) mg/dL Lactic Acid (0.4-2.0) Calcium 8.8 (8.4-10.2) mg/dL Magnesium 1.7 (1.6-2.3) mg/dL Total Bilirubin 0.80 (0.2-1.3) mg/dL AST 24 (17-59) U/L ALT 20 (0-50) U/L Alkaline Phosphatase 119 (38-126) U/L Troponin I (0.000-0.034) ng/mL NT-Pro-B Natriuret Pep 103 (0-900) pg/mL Serum Total Protein 7.9 (6.3-8.2) g/dL Albumin 4.4 (3.5-5.0) g/dL Amylase 46 (30-110) U/L Lipase 34 (23-300) U/L Urine Color (YELLOW) Urine Appearance (CLEAR) Urine pH (5-6) Ur Specific [place] (1.005-1.025) Urine Protein (Negative) Urine Ketones (NEGATIVE) Urine Blood (0-5) Justen/ul Urine Nitrite (NEGATIVE) Urine Bilirubin (NEGATIVE) Urine Urobilinogen (0-1) mg/dL Ur Leukocyte Esterase (NEGATIVE) Urine WBC (Auto) (0-5) /HPF Urine RBC (Auto) (0-2) /HPF U Epithel Cells (Auto) (FEW) /HPF Urine Bacteria (Auto) (NEGATIVE) /HPF Urine Culture Reflexed (NO) Urine Glucose (NEGATIVE) mg/dL Monoscreen (Negative) Group A Strep Antibody (NEGATIVE) 05/03/20 05/03/20 05/03/20 Range/Units 22:51 00:00 00:00 WBC (4.0-10.5) K/mm3 RBC (4.1-5.6) M/mm3 Hgb (12.5-18.0) gm/dl Hct (42-50) % MCV (78-100) fl MCH (26-32) pg MCHC (32-36) g/dl RDW (11.5-14.0) % Plt Count (150-450) K/mm3 MPV (7.5-11.0) fl Gran % (36.0-66.0) % Eos # (Auto) (0-0.5) Absolute Lymphs (auto) (1.0-4.6) Absolute Monos (auto) (0.0-1.3) Lymphocytes % (24.0-44.0) % Monocytes % (0.0-12.0) % Eosinophils % (0.00-5.0) % Basophils % (0.0-0.4) % Absolute Granulocytes (1.4-6.9) Basophils # (0-0.4) ESR (0-15) mm/hr D-Dimer (215-500) ng/mL pO2/FiO2 Ratio 21.0 % VBG pH 7.48 H (7.32-7.42) VBG pCO2 at Pat Temp 44 (42-55) mm/Hg VBG pO2 at Pat Temp 26 (25-40) mm/Hg VBG HCO3 32.8 H* (22-28) meq/L VBG O2 Sat (Sampson) 56.3 L (95-100) VBG Base Excess 8.2 H (-2.0-2.0) VBG Hemoglobin 15.9 VBG Carboxyhemoglobin 3.6 (0.0-6.9) % T HGB POC Potassium 3.8 (3.5-5.1) Sodium (137-145) mmol/L Potassium (3.5-5.1) mmol/L Chloride (98-107) mmol/L Carbon Dioxide (22-30) mmol/L Anion Gap (5-15) MEQ/L BUN (9-20) mg/dL Creatinine (0.66-1.25) mg/dL Estimated GFR ML/MIN Glucose (74-106) mg/dL Lactic Acid 1.9 (0.4-2.0) Calcium (8.4-10.2) mg/dL Magnesium (1.6-2.3) mg/dL Total Bilirubin (0.2-1.3) mg/dL AST (17-59) U/L ALT (0-50) U/L Alkaline Phosphatase (38-126) U/L Troponin I (0.000-0.034) ng/mL NT-Pro-B Natriuret Pep (0-900) pg/mL Serum Total Protein (6.3-8.2) g/dL Albumin (3.5-5.0) g/dL Amylase (30-110) U/L Lipase (23-300) U/L Urine Color YELLOW (YELLOW) Urine Appearance CLEAR (CLEAR) Urine pH 7.0 (5-6) Ur Specific [place] 1.018 (1.005-1.025) Urine Protein 30 (Negative) Urine Ketones SMALL (NEGATIVE) Urine Blood SMALL (0-5) Justen/ul Urine Nitrite NEGATIVE (NEGATIVE) Urine Bilirubin NEGATIVE (NEGATIVE) Urine Urobilinogen 4 (0-1) mg/dL Ur Leukocyte Esterase TRACE (NEGATIVE) Urine WBC (Auto) 11-15 (0-5) /HPF Urine RBC (Auto) 3-5 (0-2) /HPF U Epithel Cells (Auto) FEW (FEW) /HPF Urine Bacteria (Auto) MODERATE (NEGATIVE) /HPF Urine Culture Reflexed ORDERED SEPARATELY (NO) Urine Glucose NEGATIVE (NEGATIVE) mg/dL Monoscreen (Negative) Group A Strep Antibody NOT DETECTED (NEGATIVE) 05/03/20 Range/Units 00:00 WBC (4.0-10.5) K/mm3 RBC (4.1-5.6) M/mm3 Hgb (12.5-18.0) gm/dl Hct (42-50) % MCV (78-100) fl MCH (26-32) pg MCHC (32-36) g/dl RDW (11.5-14.0) % Plt Count (150-450) K/mm3 MPV (7.5-11.0) fl Gran % (36.0-66.0) % Eos # (Auto) (0-0.5) Absolute Lymphs (auto) (1.0-4.6) Absolute Monos (auto) (0.0-1.3) Lymphocytes % (24.0-44.0) % Monocytes % (0.0-12.0) % Eosinophils % (0.00-5.0) % Basophils % (0.0-0.4) % Absolute Granulocytes (1.4-6.9) Basophils # (0-0.4) ESR (0-15) mm/hr D-Dimer (215-500) ng/mL pO2/FiO2 Ratio % VBG pH (7.32-7.42) VBG pCO2 at Pat Temp (42-55) mm/Hg VBG pO2 at Pat Temp (25-40) mm/Hg VBG HCO3 (22-28) meq/L VBG O2 Sat (Sampson) (95-100) VBG Base Excess (-2.0-2.0) VBG Hemoglobin VBG Carboxyhemoglobin (0.0-6.9) % T HGB POC Potassium (3.5-5.1) Sodium (137-145) mmol/L Potassium (3.5-5.1) mmol/L Chloride (98-107) mmol/L Carbon Dioxide (22-30) mmol/L Anion Gap (5-15) MEQ/L BUN (9-20) mg/dL Creatinine (0.66-1.25) mg/dL Estimated GFR ML/MIN Glucose (74-106) mg/dL Lactic Acid (0.4-2.0) Calcium (8.4-10.2) mg/dL Magnesium (1.6-2.3) mg/dL Total Bilirubin (0.2-1.3) mg/dL AST (17-59) U/L ALT (0-50) U/L Alkaline Phosphatase (38-126) U/L Troponin I (0.000-0.034) ng/mL NT-Pro-B Natriuret Pep (0-900) pg/mL Serum Total Protein (6.3-8.2) g/dL Albumin (3.5-5.0) g/dL Amylase (30-110) U/L Lipase (23-300) U/L Urine Color (YELLOW) Urine Appearance (CLEAR) Urine pH (5-6) Ur Specific [place] (1.005-1.025) Urine Protein (Negative) Urine Ketones (NEGATIVE) Urine Blood (0-5) Justen/ul Urine Nitrite (NEGATIVE) Urine Bilirubin (NEGATIVE) Urine Urobilinogen (0-1) mg/dL Ur Leukocyte Esterase (NEGATIVE) Urine WBC (Auto) (0-5) /HPF Urine RBC (Auto) (0-2) /HPF U Epithel Cells (Auto) (FEW) /HPF Urine Bacteria (Auto) (NEGATIVE) /HPF Urine Culture Reflexed (NO) Urine Glucose (NEGATIVE) mg/dL Monoscreen NEGATIVE (Negative) Group A Strep Antibody (NEGATIVE) - Progress Progress: unchanged Discussed with : Gordy Will see patient in: hospital (observation) Counseled pt/family regarding: lab results, rad results - Departure Departure Disposition: Observation Clinical Impression: UTI (urinary tract infection), Renal colic on right side, Multiple sclerosis, Depression, Neuropathy Condition: Stable Critical Care Time: No Referrals: EDILMA BRITO MD [Primary Care Provider] -
[2020-05-03] MEDS ORDERED: Sodium Chloride 0.9% 1000 ML 1,000 ML ONE (22:57)
[2020-05-03] MEDS ORDERED: Zofran 4 MG/2 ML VIAL ONE (22:57)
[2020-05-03 23:01] LABS: Lactic Acid 1.9 (0.4-2.0); VBG BASE EXCESS 8.2 (-2.0-2.0); VBG CARBOXYHEMOGLOBIN 3.6 % T HGB (0.0-6.9); VBG HCO3- 32.8 meq/L (22-28); VBG HEMOGLOBIN 15.9; VBG O2 SATURATION 56.3 (95-100); VBG POTASSIUM 3.8 (3.5-5.1); VBG pH 7.48 (7.32-7.42)
[2020-05-03 23:30] LABS: Absolute Neutrophil Ct (ANC) 10.01 (1.4-6.9); BASOPHIL % 0.3 % (0.0-0.4); Basophil (Absolute #) 0.03 (0-0.4); Eosinophil % 0.1 % (0.00-5.0); Eosinophil (Absolute #) 0.01 (0-0.5); Hematocrit 46.1 % (42-50); Hemoglobin 15.4 gm/dl (12.5-18.0); Lymphocyte (Absolute #) 0.65 (1.0-4.6); Lymphocytes % 5.4 % (24.0-44.0); Mean Cell Volume 91.3 fl (78-100); Mean Corpuscular Hemoglobin 30.5 pg (26-32); Mean Corpuscular Hgb Concent. 33.4 g/dl (32-36); Mean Platelet Volume 10.7 fl (7.5-11.0); Monocyte (Absolute #) 1.24 (0.0-1.3); Monocytes % 10.4 % (0.0-12.0); Neutrophil % 83.8 % (36.0-66.0); Platelet Count 302 K/mm3 (150-450); Red Blood Count 5.05 M/mm3 (4.1-5.6); Red Cell Distribution Width 13.9 % (11.5-14.0); White Blood Count 11.9 K/mm3 (4.0-10.5)
[2020-05-04 00:29] LABS: ALBUMIN 4.4 g/dL (3.5-5.0); ALKALINE PHOSPHATASE 119 U/L (38-126); AMYLASE 46 U/L (30-110); BLOOD UREA NITROGEN 17 mg/dL (9-20); CHLORIDE 101 mmol/L (98-107); Calcium 8.8 mg/dL (8.4-10.2); Carbon Dioxide 28 mmol/L (22-30); Creatinine 1 0.89 mg/dL (0.66-1.25); EST GLOMERULAR FILTRATION RATE > 60.0 ML/MIN; Glucose 103 mg/dL (74-106); LIPASE 34 U/L (23-300); Potassium 3.8 mmol/L (3.5-5.1); SGOT/AST 24 U/L (17-59); SGPT/ALT 20 U/L (0-50); SODIUM 137 mmol/L (137-145); Total Protein 7.9 g/dL (6.3-8.2)
[2020-05-04] MEDS ORDERED: TYLENOL 325 MG PO ONE (00:51)
[2020-05-04 01:06] LABS: MAGNESIUM 1.7 mg/dL (1.6-2.3)
[2020-05-04 01:13] LABS: Appearance CLEAR (CLEAR); Bacteria MODERATE /HPF (NEGATIVE); Bilirubin NEGATIVE (NEGATIVE); Blood SMALL Ery/ul (0-5); Glucose NEGATIVE (NEGATIVE); Ketones SMALL (NEGATIVE); Leukocyte Esterase TRACE (NEGATIVE); Nitrite NEGATIVE (NEGATIVE); Protein,Urine Dip 30 (Negative); Specific Gravity 1.018 (1.005-1.025); Urobilinogen 4 mg/dL (0-1)
[2020-05-04 01:15] LABS: Epithelial Cells FEW /HPF (FEW)
[2020-05-04] MEDS ORDERED: TYLENOL 325 MG ONE (01:21)
[2020-05-04] MEDS ORDERED: Sodium Chloride 0.9% 1000 ML 1,000 ML ONE (01:30)
[2020-05-04] MEDS ORDERED: ROCEPHIN 1 Gm-D5w 50 ml Bag** 1 G/50 ML IVPB IV STA (01:46)
[2020-05-04] MEDS ORDERED: ROCEPHIN 1 Gm-D5w 50 ml Bag** 1 G/50 ML IVPB IV ONE (01:53)
[2020-05-04] MEDS ORDERED: TORAdol 30 mg Injection IV PRN (02:05)
[2020-05-04] MEDS ORDERED: TYLENOL 325 MG PO PRN (02:05)
[2020-05-04] MEDS ORDERED: Zofran 4 MG/2 ML VIAL IV PRN (02:05)
[2020-05-04] MEDS: Sodium Chloride 0.9% 1000 ML 1,000 ML IV SCH ×2 (02:21→12:24)
[2020-05-04 05:49] LABS: Absolute Neutrophil Ct (ANC) 8.39 (1.4-6.9); BASOPHIL % 0.2 % (0.0-0.4); Basophil (Absolute #) 0.02 (0-0.4); Eosinophil (Absolute #) 0 (0-0.5); Hematocrit 42.1 % (42-50); Lymphocyte (Absolute #) 0.77 (1.0-4.6); Lymphocytes % 7.6 % (24.0-44.0); Mean Cell Volume 91.7 fl (78-100); Mean Corpuscular Hemoglobin 30.5 pg (26-32); Mean Corpuscular Hgb Concent. 33.3 g/dl (32-36); Mean Platelet Volume 10.8 fl (7.5-11.0); Monocyte (Absolute #) 1.01 (0.0-1.3); Monocytes % 9.9 % (0.0-12.0); Neutrophil % 82.3 % (36.0-66.0); Platelet Count 247 K/mm3 (150-450); Red Blood Count 4.59 M/mm3 (4.1-5.6); Red Cell Distribution Width 13.9 % (11.5-14.0); White Blood Count 10.2 K/mm3 (4.0-10.5)
[2020-05-04 06:15] LABS: ALBUMIN 3.7 g/dL (3.5-5.0); ALKALINE PHOSPHATASE 97 U/L (38-126); BLOOD UREA NITROGEN 15 mg/dL (9-20); CHLORIDE 104 mmol/L (98-107); Calcium 7.9 mg/dL (8.4-10.2); Carbon Dioxide 21 mmol/L (22-30); Creatinine 1 0.72 mg/dL (0.66-1.25); EST GLOMERULAR FILTRATION RATE > 60.0 ML/MIN; Glucose 99 mg/dL (74-106); Potassium 3.7 mmol/L (3.5-5.1); SGOT/AST 23 U/L (17-59); SGPT/ALT 16 U/L (0-50); SODIUM 133 mmol/L (137-145); Total Protein 6.8 g/dL (6.3-8.2)
[2020-05-04] MEDS ORDERED: NORCO 5/325 MG PO PRN (08:10)
--- NOTE | 2020-05-04 08:14 | PCM.HP ---
History of Present Illness - Chief Complaint Chief Complaint: Right renal colic, UTI History of Present Illness: is a 59 year old male who presented to the ER with sudden onset of right abdominal and flank pain 1 day prior to arrival, he also had some fever and weakness and urinary frequency. There has been no cough, no vomiting or diarrhea. - Review of Systems Constitutional: Fever, Weakness, No Chills Respiratory: No Cough, No Short Of Breath Cardiac: No Chest Pain, No Edema, No Syncope Abdominal/Gastrointestinal: No Abdominal Pain, No Nausea, No Vomiting, No Maxine rrhea Genitourinary Symptoms: Frequency Skin: No Rash All Other Systems: Reviewed and Negative Medications & Allergies Home Medications: Home Medication List Amitriptyline HCl 100 mg PO HS 08/04/19 [History Confirmed 05/04/20] Fluoxetine HCl 20 mg PO DAILY 08/04/19 [History Confirmed 05/04/20] Allergies/Adverse Reactions: Allergies Allergy/AdvReac Type Severity Reaction Status Date / Time No Known Drug Allergies Allergy Verified 05/03/20 22:44 - Past Medical History Past Medical History: Yes Neurological History: Peripheral Neuropathy, Other ENT History: No Pertinent History Cardiac History: No Pertinent History Respiratory History: No Pertinent History Endocrine Medical History: No Pertinent History Musculoskelatal History: No Pertinent History GI Medical History: No Pertinent History History: No Pertinent History Pyscho-Social History: Depression Male Reproductive Disorders: No Pertinent History Comment: Multiple sclerosis, neuropathy, - Past Surgical History Past Surgical History: No Neuro Surgical History: No Pertinent History Cardiac History: No Pertinent History Respiratory Surgery: No Pertinent History GI Surgical History: No Pertinent History Genitourinary Surgical Hx: No Pertinent History Musculskeletal Surgical Hx: No Pertinent History Male Surgical History: No Pertinent History - Social History Smoking Status: Never smoker Exposure to second hand smoke: No Alcohol: None Drug Use: none - Physical Exam Vital Signs: Vital Signs - 24 hr Temp Pulse Resp BP Pulse Ox 05/04/20 07:50 92 L 05/04/20 06:48 99.2 F 90 18 128/71 93 L 05/04/20 03:06 100.3 F 98 H 20 131/72 92 L 05/04/20 02:20 95 05/04/20 01:41 103.0 F 99 H 18 131/93 94 L 05/03/20 23:42 99 H 24 162/88 94 L 05/03/20 22:45 99.9 F 103 H 20 148/80 95 General Appearance: no apparent distress, obese Neurologic Exam: alert, oriented x 3 Neck Exam: normal inspection Respiratory Exam: normal breath sounds, lungs clear, No respiratory distress Cardiovascular Exam: regular rate/rhythm, normal heart sounds, normal peripheral pulses Gastrointestinal/Abdomen Exam: soft, normal bowel sounds, No tenderness, No mass Extremity Exam: normal inspection, normal range of motion, pelvis stable Skin Exam: normal color, warm, dry, No rash Results - Labs Lab/Micro Results: Lab Results-Last 24 Hours 05/03/20 05/03/20 05/03/20 Range/Units 00:00 00:00 00:00 WBC (4.0-10.5) K/mm3 RBC (4.1-5.6) M/mm3 Hgb (12.5-18.0) gm/dl Hct (42-50) % MCV (78-100) fl MCH (26-32) pg MCHC (32-36) g/dl RDW (11.5-14.0) % Plt Count (150-450) K/mm3 MPV (7.5-11.0) fl Gran % (36.0-66.0) % Eos # (Auto) (0-0.5) Absolute Lymphs (auto) (1.0-4.6) Absolute Monos (auto) (0.0-1.3) Lymphocytes % (24.0-44.0) % Monocytes % (0.0-12.0) % Eosinophils % (0.00-5.0) % Basophils % (0.0-0.4) % Absolute Granulocytes (1.4-6.9) Basophils # (0-0.4) ESR (0-15) mm/hr D-Dimer (215-500) ng/mL pO2/FiO2 Ratio % VBG pH (7.32-7.42) VBG pCO2 at Pat Temp (42-55) mm/Hg VBG pO2 at Pat Temp (25-40) mm/Hg VBG HCO3 (22-28) meq/L VBG O2 Sat (Sampson) (95-100) VBG Base Excess (-2.0-2.0) VBG Hemoglobin VBG Carboxyhemoglobin (0.0-6.9) % T HGB POC Potassium (3.5-5.1) Sodium (137-145) mmol/L Potassium (3.5-5.1) mmol/L Chloride (98-107) mmol/L Carbon Dioxide (22-30) mmol/L Anion Gap (5-15) MEQ/L BUN (9-20) mg/dL Creatinine (0.66-1.25) mg/dL Estimated GFR ML/MIN Glucose (74-106) mg/dL Lactic Acid (0.4-2.0) Calcium (8.4-10.2) mg/dL Magnesium (1.6-2.3) mg/dL Total Bilirubin (0.2-1.3) mg/dL AST (17-59) U/L ALT (0-50) U/L Alkaline Phosphatase (38-126) U/L Troponin I (0.000-0.034) ng/mL NT-Pro-B Natriuret Pep (0-900) pg/mL Serum Total Protein (6.3-8.2) g/dL Albumin (3.5-5.0) g/dL Amylase (30-110) U/L Lipase (23-300) U/L Urine Color YELLOW (YELLOW) Urine Appearance CLEAR (CLEAR) Urine pH 7.0 (5-6) Ur Specific [place] 1.018 (1.005-1.025) Urine Protein 30 (Negative) Urine Ketones SMALL (NEGATIVE) Urine Blood SMALL (0-5) Justen/ul Urine Nitrite NEGATIVE (NEGATIVE) Urine Bilirubin NEGATIVE (NEGATIVE) Urine Urobilinogen 4 (0-1) mg/dL Ur Leukocyte Esterase TRACE (NEGATIVE) Urine WBC (Auto) 11-15 (0-5) /HPF Urine RBC (Auto) 3-5 (0-2) /HPF U Epithel Cells (Auto) FEW (FEW) /HPF Urine Bacteria (Auto) MODERATE (NEGATIVE) /HPF Urine Culture Reflexed ORDERED SEPARATELY (NO) Urine Glucose NEGATIVE (NEGATIVE) mg/dL Monoscreen NEGATIVE (Negative) Group A Strep Antibody NOT DETECTED (NEGATIVE) 05/03/20 05/03/20 05/03/20 Range/Units 22:51 23:10 23:10 WBC 11.9 H (4.0-10.5) K/mm3 RBC 5.05 (4.1-5.6) M/mm3 Hgb 15.4 (12.5-18.0) gm/dl Hct 46.1 (42-50) % MCV 91.3 (78-100) fl MCH 30.5 (26-32) pg MCHC 33.4 (32-36) g/dl RDW 13.9 (11.5-14.0) % Plt Count 302 (150-450) K/mm3 MPV 10.7 (7.5-11.0) fl Gran % 83.8 H (36.0-66.0) % Eos # (Auto) 0.01 (0-0.5) Absolute Lymphs (auto) 0.65 L (1.0-4.6) Absolute Monos (auto) 1.24 (0.0-1.3) Lymphocytes % 5.4 L (24.0-44.0) % Monocytes % 10.4 (0.0-12.0) % Eosinophils % 0.1 (0.00-5.0) % Basophils % 0.3 (0.0-0.4) % Absolute Granulocytes 10.01 H (1.4-6.9) Basophils # 0.03 (0-0.4) ESR (0-15) mm/hr D-Dimer (215-500) ng/mL pO2/FiO2 Ratio 21.0 % VBG pH 7.48 H (7.32-7.42) VBG pCO2 at Pat Temp 44 (42-55) mm/Hg VBG pO2 at Pat Temp 26 (25-40) mm/Hg VBG HCO3 32.8 H* (22-28) meq/L VBG O2 Sat (Sampson) 56.3 L (95-100) VBG Base Excess 8.2 H (-2.0-2.0) VBG Hemoglobin 15.9 VBG Carboxyhemoglobin 3.6 (0.0-6.9) % T HGB POC Potassium 3.8 (3.5-5.1) Sodium 137 (137-145) mmol/L Potassium 3.8 (3.5-5.1) mmol/L Chloride 101 (98-107) mmol/L Carbon Dioxide 28 (22-30) mmol/L Anion Gap 12.0 (5-15) MEQ/L BUN 17 (9-20) mg/dL Creatinine 0.89 (0.66-1.25) mg/dL Estimated GFR > 60.0 ML/MIN Glucose 103 (74-106) mg/dL Lactic Acid 1.9 (0.4-2.0) Calcium 8.8 (8.4-10.2) mg/dL Magnesium (1.6-2.3) mg/dL Total Bilirubin 0.80 (0.2-1.3) mg/dL AST 24 (17-59) U/L ALT 20 (0-50) U/L Alkaline Phosphatase 119 (38-126) U/L Troponin I (0.000-0.034) ng/mL NT-Pro-B Natriuret Pep (0-900) pg/mL Serum Total Protein 7.9 (6.3-8.2) g/dL Albumin 4.4 (3.5-5.0) g/dL Amylase 46 (30-110) U/L Lipase 34 (23-300) U/L Urine Color (YELLOW) Urine Appearance (CLEAR) Urine pH (5-6) Ur Specific [place] (1.005-1.025) Urine Protein (Negative) Urine Ketones (NEGATIVE) Urine Blood (0-5) Justen/ul Urine Nitrite (NEGATIVE) Urine Bilirubin (NEGATIVE) Urine Urobilinogen (0-1) mg/dL Ur Leukocyte Esterase (NEGATIVE) Urine WBC (Auto) (0-5) /HPF Urine RBC (Auto) (0-2) /HPF U Epithel Cells (Auto) (FEW) /HPF Urine Bacteria (Auto) (NEGATIVE) /HPF Urine Culture Reflexed (NO) Urine Glucose (NEGATIVE) mg/dL Monoscreen (Negative) Group A Strep Antibody (NEGATIVE) 05/03/20 05/04/20 05/04/20 Range/Units 23:10 00:00 00:00 WBC (4.0-10.5) K/mm3 RBC (4.1-5.6) M/mm3 Hgb (12.5-18.0) gm/dl Hct (42-50) % MCV (78-100) fl MCH (26-32) pg MCHC (32-36) g/dl RDW (11.5-14.0) % Plt Count (150-450) K/mm3 MPV (7.5-11.0) fl Gran % (36.0-66.0) % Eos # (Auto) (0-0.5) Absolute Lymphs (auto) (1.0-4.6) Absolute Monos (auto) (0.0-1.3) Lymphocytes % (24.0-44.0) % Monocytes % (0.0-12.0) % Eosinophils % (0.00-5.0) % Basophils % (0.0-0.4) % Absolute Granulocytes (1.4-6.9) Basophils # (0-0.4) ESR 8 (0-15) mm/hr D-Dimer 406 (215-500) ng/mL pO2/FiO2 Ratio % VBG pH (7.32-7.42) VBG pCO2 at Pat Temp (42-55) mm/Hg VBG pO2 at Pat Temp (25-40) mm/Hg VBG HCO3 (22-28) meq/L VBG O2 Sat (Sampson) (95-100) VBG Base Excess (-2.0-2.0) VBG Hemoglobin VBG Carboxyhemoglobin (0.0-6.9) % T HGB POC Potassium (3.5-5.1) Sodium (137-145) mmol/L Potassium (3.5-5.1) mmol/L Chloride (98-107) mmol/L Carbon Dioxide (22-30) mmol/L Anion Gap (5-15) MEQ/L BUN (9-20) mg/dL Creatinine (0.66-1.25) mg/dL Estimated GFR ML/MIN Glucose (74-106) mg/dL Lactic Acid (0.4-2.0) Calcium (8.4-10.2) mg/dL Magnesium 1.7 (1.6-2.3) mg/dL Total Bilirubin (0.2-1.3) mg/dL AST (17-59) U/L ALT (0-50) U/L Alkaline Phosphatase (38-126) U/L Troponin I (0.000-0.034) ng/mL NT-Pro-B Natriuret Pep 103 (0-900) pg/mL Serum Total Protein (6.3-8.2) g/dL Albumin (3.5-5.0) g/dL Amylase (30-110) U/L Lipase (23-300) U/L Urine Color (YELLOW) Urine Appearance (CLEAR) Urine pH (5-6) Ur Specific [place] (1.005-1.025) Urine Protein (Negative) Urine Ketones (NEGATIVE) Urine Blood (0-5) Justen/ul Urine Nitrite (NEGATIVE) Urine Bilirubin (NEGATIVE) Urine Urobilinogen (0-1) mg/dL Ur Leukocyte Esterase (NEGATIVE) Urine WBC (Auto) (0-5) /HPF Urine RBC (Auto) (0-2) /HPF U Epithel Cells (Auto) (FEW) /HPF Urine Bacteria (Auto) (NEGATIVE) /HPF Urine Culture Reflexed (NO) Urine Glucose (NEGATIVE) mg/dL Monoscreen (Negative) Group A Strep Antibody (NEGATIVE) 05/04/20 05/04/20 05/04/20 Range/Units 00:00 02:10 04:45 WBC (4.0-10.5) K/mm3 RBC (4.1-5.6) M/mm3 Hgb (12.5-18.0) gm/dl Hct (42-50) % MCV (78-100) fl MCH (26-32) pg MCHC (32-36) g/dl RDW (11.5-14.0) % Plt Count (150-450) K/mm3 MPV (7.5-11.0) fl Gran % (36.0-66.0) % Eos # (Auto) (0-0.5) Absolute Lymphs (auto) (1.0-4.6) Absolute Monos (auto) (0.0-1.3) Lymphocytes % (24.0-44.0) % Monocytes % (0.0-12.0) % Eosinophils % (0.00-5.0) % Basophils % (0.0-0.4) % Absolute Granulocytes (1.4-6.9) Basophils # (0-0.4) ESR (0-15) mm/hr D-Dimer (215-500) ng/mL pO2/FiO2 Ratio % VBG pH (7.32-7.42) VBG pCO2 at Pat Temp (42-55) mm/Hg VBG pO2 at Pat Temp (25-40) mm/Hg VBG HCO3 (22-28) meq/L VBG O2 Sat (Sampson) (95-100) VBG Base Excess (-2.0-2.0) VBG Hemoglobin VBG Carboxyhemoglobin (0.0-6.9) % T HGB POC Potassium (3.5-5.1) Sodium (137-145) mmol/L Potassium (3.5-5.1) mmol/L Chloride (98-107) mmol/L Carbon Dioxide (22-30) mmol/L Anion Gap (5-15) MEQ/L BUN (9-20) mg/dL Creatinine (0.66-1.25) mg/dL Estimated GFR ML/MIN Glucose (74-106) mg/dL Lactic Acid (0.4-2.0) Calcium (8.4-10.2) mg/dL Magnesium (1.6-2.3) mg/dL Total Bilirubin (0.2-1.3) mg/dL AST (17-59) U/L ALT (0-50) U/L Alkaline Phosphatase (38-126) U/L Troponin I < 0.012 < 0.012 < 0.012 (0.000-0.034) ng/mL NT-Pro-B Natriuret Pep (0-900) pg/mL Serum Total Protein (6.3-8.2) g/dL Albumin (3.5-5.0) g/dL Amylase (30-110) U/L Lipase (23-300) U/L Urine Color (YELLOW) Urine Appearance (CLEAR) Urine pH (5-6) Ur Specific [place] (1.005-1.025) Urine Protein (Negative) Urine Ketones (NEGATIVE) Urine Blood (0-5) Justen/ul Urine Nitrite (NEGATIVE) Urine Bilirubin (NEGATIVE) Urine Urobilinogen (0-1) mg/dL Ur Leukocyte Esterase (NEGATIVE) Urine WBC (Auto) (0-5) /HPF Urine RBC (Auto) (0-2) /HPF U Epithel Cells (Auto) (FEW) /HPF Urine Bacteria (Auto) (NEGATIVE) /HPF Urine Culture Reflexed (NO) Urine Glucose (NEGATIVE) mg/dL Monoscreen (Negative) Group A Strep Antibody (NEGATIVE) 05/04/20 05/04/20 Range/Units 04:45 04:45 WBC 10.2 (4.0-10.5) K/mm3 RBC 4.59 (4.1-5.6) M/mm3 Hgb 14.0 (12.5-18.0) gm/dl Hct 42.1 (42-50) % MCV 91.7 (78-100) fl MCH 30.5 (26-32) pg MCHC 33.3 (32-36) g/dl RDW 13.9 (11.5-14.0) % Plt Count 247 (150-450) K/mm3 MPV 10.8 (7.5-11.0) fl Gran % 82.3 H (36.0-66.0) % Eos # (Auto) 0 (0-0.5) Absolute Lymphs (auto) 0.77 L (1.0-4.6) Absolute Monos (auto) 1.01 (0.0-1.3) Lymphocytes % 7.6 L (24.0-44.0) % Monocytes % 9.9 (0.0-12.0) % Eosinophils % 0.0 (0.00-5.0) % Basophils % 0.2 (0.0-0.4) % Absolute Granulocytes 8.39 H (1.4-6.9) Basophils # 0.02 (0-0.4) ESR (0-15) mm/hr D-Dimer (215-500) ng/mL pO2/FiO2 Ratio % VBG pH (7.32-7.42) VBG pCO2 at Pat Temp (42-55) mm/Hg VBG pO2 at Pat Temp (25-40) mm/Hg VBG HCO3 (22-28) meq/L VBG O2 Sat (Sampson) (95-100) VBG Base Excess (-2.0-2.0) VBG Hemoglobin VBG Carboxyhemoglobin (0.0-6.9) % T HGB POC Potassium (3.5-5.1) Sodium 133 L (137-145) mmol/L Potassium 3.7 (3.5-5.1) mmol/L Chloride 104 (98-107) mmol/L Carbon Dioxide 21 L (22-30) mmol/L Anion Gap 12.0 (5-15) MEQ/L BUN 15 (9-20) mg/dL Creatinine 0.72 (0.66-1.25) mg/dL Estimated GFR > 60.0 ML/MIN Glucose 99 (74-106) mg/dL Lactic Acid (0.4-2.0) Calcium 7.9 L (8.4-10.2) mg/dL Magnesium (1.6-2.3) mg/dL Total Bilirubin 0.60 (0.2-1.3) mg/dL AST 23 (17-59) U/L ALT 16 (0-50) U/L Alkaline Phosphatase 97 (38-126) U/L Troponin I (0.000-0.034) ng/mL NT-Pro-B Natriuret Pep (0-900) pg/mL Serum Total Protein 6.8 (6.3-8.2) g/dL Albumin 3.7 (3.5-5.0) g/dL Amylase (30-110) U/L Lipase (23-300) U/L Urine Color (YELLOW) Urine Appearance (CLEAR) Urine pH (5-6) Ur Specific [place] (1.005-1.025) Urine Protein (Negative) Urine Ketones (NEGATIVE) Urine Blood (0-5) Justen/ul Urine Nitrite (NEGATIVE) Urine Bilirubin (NEGATIVE) Urine Urobilinogen (0-1) mg/dL Ur Leukocyte Esterase (NEGATIVE) Urine WBC (Auto) (0-5) /HPF Urine RBC (Auto) (0-2) /HPF U Epithel Cells (Auto) (FEW) /HPF Urine Bacteria (Auto) (NEGATIVE) /HPF Urine Culture Reflexed (NO) Urine Glucose (NEGATIVE) mg/dL Monoscreen (Negative) Group A Strep Antibody (NEGATIVE) - Radiology Impressions Radiology Exams & Impressions: Radiology Procedures Category Date Time Status ABDOMEN AND PELVIS W/0 CONTRAS [CT] Stat Exams 05/04/20 00:15 Taken CHEST 1 VIEW (PORTABLE) Stat Exams 05/03/20 22:49 Taken Assessment/Plan (1) UTI (urinary tract infection) Current Visit: Yes Status: Acute Assessment & Plan: on rocephin, culture pending. continue fluids, patient appears nontoxic at this time. Code(s): N39.0 - URINARY TRACT INFECTION, SITE NOT SPECIFIED (2) Renal colic on right side Current Visit: Yes Status: Acute Assessment & Plan: 3mm UVJ stone, aldana in place. continue IV fluids Code(s): N23 - UNSPECIFIED RENAL COLIC (3) Multiple sclerosis Current Visit: Yes Status: Chronic Code(s): G35 - MULTIPLE SCLEROSIS
--- NOTE | 2020-05-04 08:58 | XRAY ---
Indication: Abdomen pain, fever, nausea, and body aches. Multiple contiguous axial images obtained through the abdomen and pelvis without contrast as ordered. Comparison: None. Patient's arms produces beam artifact. Visualized lung bases demonstrates right lower lobe subsegmental atelectasis/scarring and right hemidiaphragm elevation. Heart is not enlarged. Noncontrasted stomach and bowel loops appear nonobstructed. Normal appendix. There is mild diffuse scattered colonic fecal debris throughout with moderate rectal impaction. 2-3 mm right UVJ calculus with mild hydronephrosis and minimal hydroureter. A few additional right renal punctate calculi. Urinary bladder is decompressed with Conn balloon catheter tip in situ. No free fluid/air. Remaining liver, gallbladder, pancreas, spleen, adrenal glands, kidneys, ureters, bladder, and aorta appear grossly unremarkable for noncontrast exam. Osseous structures demonstrates diffuse osteopenia, moderate degenerative changes throughout the thoracolumbar spine, and moderate levorotoscoliosis centered at L2. Impression: 1. 2-3 mm right UVJ calculus producing partial obstruction as detailed. Additional right renal micro-calculi. 2. Diffuse fecal stasis with rectal impaction. 3. Incidental right hemidiaphragm elevation and chronic bony findings. 4. Remaining CT abdomen/pelvis without contrast exam is negative. Comment: Preliminary interpretation was made by [facility]. No critical discrepancy.
--- NOTE | 2020-05-04 09:08 | XRAY ---
Indication: Fever. History of multiple sclerosis. Comparison: August 05, 2019. Portable chest again demonstrates right hemidiaphragm elevation with diminished right base discoid atelectasis/scarring. Remaining heart and left lung unremarkable. Bony thorax intact. No new/acute findings. Comment: Preliminary interpretation was made by [facility]. No critical discrepancy.
[2020-05-04] MEDS: Prozac 20 MG PO SCH (09:51)
[2020-05-04] MEDS ORDERED: FLUZONE QUAD 2020-2021 SYRINGE IM ONE (10:00)
[2020-05-04] MEDS: ROCEPHIN 1 Gm-D5w 50 ml Bag** 1 G/50 ML IVPB IV SCH (21:55)
[2020-05-05] MEDS: Sodium Chloride 0.9% 1000 ML 1,000 ML IV SCH ×3 (00:47→21:30)
[2020-05-05 05:25] LABS: Absolute Neutrophil Ct (ANC) 6.08 (1.4-6.9); BASOPHIL % 0.4 % (0.0-0.4); Basophil (Absolute #) 0.04 (0-0.4); Eosinophil % 1.3 % (0.00-5.0); Eosinophil (Absolute #) 0.12 (0-0.5); Hematocrit 40.2 % (42-50); Hemoglobin 13.5 gm/dl (12.5-18.0); Lymphocyte (Absolute #) 1.36 (1.0-4.6); Lymphocytes % 15.3 % (24.0-44.0); Mean Cell Volume 91.2 fl (78-100); Mean Corpuscular Hemoglobin 30.6 pg (26-32); Mean Corpuscular Hgb Concent. 33.6 g/dl (32-36); Mean Platelet Volume 10.6 fl (7.5-11.0); Monocyte (Absolute #) 1.29 (0.0-1.3); Monocytes % 14.5 % (0.0-12.0); Neutrophil % 68.5 % (36.0-66.0); Platelet Count 214 K/mm3 (150-450); Red Blood Count 4.41 M/mm3 (4.1-5.6); Red Cell Distribution Width 13.8 % (11.5-14.0); White Blood Count 8.9 K/mm3 (4.0-10.5)
[2020-05-05 05:44] LABS: ALBUMIN 3.3 g/dL (3.5-5.0); ALKALINE PHOSPHATASE 83 U/L (38-126); ANION GAP 10.2 MEQ/L (5-15); BLOOD UREA NITROGEN 13 mg/dL (9-20); CHLORIDE 107 mmol/L (98-107); Calcium 7.7 mg/dL (8.4-10.2); Carbon Dioxide 22 mmol/L (22-30); Creatinine 1 0.85 mg/dL (0.66-1.25); EST GLOMERULAR FILTRATION RATE > 60.0 ML/MIN; Glucose 101 mg/dL (74-106); Potassium 3.5 mmol/L (3.5-5.1); SGOT/AST 18 U/L (17-59); SGPT/ALT 14 U/L (0-50); SODIUM 135 mmol/L (137-145); Total Protein 6.4 g/dL (6.3-8.2)
--- NOTE | 2020-05-05 08:47 | PCM.NOTE ---
Date and Time: 05/05/20 0842 Subjective Assessment: Pt is feeling better. No longer having R flank pain. [place] po. Has catheter and unaware of passing any stone. On O2 this morning - does not wear O2 at home. - Review of Systems Constitutional: No Fever Abdominal/Gastrointestinal: No Vomiting Objective Exam General Appearance: no apparent distress, alert, obese Neurologic Exam: oriented x 3, cooperative Skin Exam: normal color, warm, dry, No rash Eye Exam: eyes nml inspection Ears, Nose, Throat Exam: moist mucous membranes Neck Exam: normal inspection Respiratory Exam: normal breath sounds, lungs clear, No crackles/rales, No rhonchi, No wheezing Cardiovascular Exam: regular rate/rhythm, normal heart sounds, No murmur Gastrointestinal/Abdomen Exam: soft, normal bowel sounds, tenderness (suprapubic, mild), No mass, No guarding, No rebound Extremity Exam: other (anterior R lower leg with multiple scattered black eschars/abraded areas), No pedal edema, No swelling OBJECTIVE DATA Vital Signs: Vital Signs - 24 hr Temp Pulse Resp BP Pulse Ox 05/05/20 07:00 97.2 F 89 17 133/56 92 L 05/05/20 04:35 94 L 05/05/20 04:30 89 L 05/05/20 03:00 98.6 F 93 H 16 137/66 94 L 05/04/20 23:00 99.6 F 91 H 20 135/68 91 L 05/04/20 20:06 92 L 05/04/20 19:00 99.2 F 98 H 24 126/61 92 L 05/04/20 15:41 97.8 F 90 20 110/57 91 L 05/04/20 12:00 100.0 F 91 H 20 150/68 94 L Pain Assessment - Last Documented Pain Intensity 0 Pain Scale Used FLACC Intake and Output: Intake & Output 05/02/20 05/03/20 05/04/20 05/05/20 11:59 11:59 11:59 11:59 Intake Total 343 2778 Output Total 900 1800 Balance -557 978 Weight 118.9 kg Lab Results: Lab Results-Last 24 Hours 05/04/20 05/04/20 05/05/20 Range/Units 08:15 11:10 04:40 WBC 8.9 (4.0-10.5) K/mm3 RBC 4.41 (4.1-5.6) M/mm3 Hgb 13.5 (12.5-18.0) gm/dl Hct 40.2 L (42-50) % MCV 91.2 (78-100) fl MCH 30.6 (26-32) pg MCHC 33.6 (32-36) g/dl RDW 13.8 (11.5-14.0) % Plt Count 214 (150-450) K/mm3 MPV 10.6 (7.5-11.0) fl Gran % 68.5 H (36.0-66.0) % Eos # (Auto) 0.12 (0-0.5) Absolute Lymphs (auto) 1.36 (1.0-4.6) Absolute Monos (auto) 1.29 (0.0-1.3) Lymphocytes % 15.3 L (24.0-44.0) % Monocytes % 14.5 H (0.0-12.0) % Eosinophils % 1.3 (0.00-5.0) % Basophils % 0.4 (0.0-0.4) % Absolute Granulocytes 6.08 (1.4-6.9) Basophils # 0.04 (0-0.4) Sodium (137-145) mmol/L Potassium (3.5-5.1) mmol/L Chloride (98-107) mmol/L Carbon Dioxide (22-30) mmol/L Anion Gap (5-15) MEQ/L BUN (9-20) mg/dL Creatinine (0.66-1.25) mg/dL Estimated GFR ML/MIN Glucose (74-106) mg/dL Calcium (8.4-10.2) mg/dL Total Bilirubin (0.2-1.3) mg/dL AST (17-59) U/L ALT (0-50) U/L Alkaline Phosphatase (38-126) U/L Troponin I < 0.012 < 0.012 (0.000-0.034) ng/mL Serum Total Protein (6.3-8.2) g/dL Albumin (3.5-5.0) g/dL 05/05/20 Range/Units 04:40 WBC (4.0-10.5) K/mm3 RBC (4.1-5.6) M/mm3 Hgb (12.5-18.0) gm/dl Hct (42-50) % MCV (78-100) fl MCH (26-32) pg MCHC (32-36) g/dl RDW (11.5-14.0) % Plt Count (150-450) K/mm3 MPV (7.5-11.0) fl Gran % (36.0-66.0) % Eos # (Auto) (0-0.5) Absolute Lymphs (auto) (1.0-4.6) Absolute Monos (auto) (0.0-1.3) Lymphocytes % (24.0-44.0) % Monocytes % (0.0-12.0) % Eosinophils % (0.00-5.0) % Basophils % (0.0-0.4) % Absolute Granulocytes (1.4-6.9) Basophils # (0-0.4) Sodium 135 L (137-145) mmol/L Potassium 3.5 (3.5-5.1) mmol/L Chloride 107 (98-107) mmol/L Carbon Dioxide 22 (22-30) mmol/L Anion Gap 10.2 (5-15) MEQ/L BUN 13 (9-20) mg/dL Creatinine 0.85 (0.66-1.25) mg/dL Estimated GFR > 60.0 ML/MIN Glucose 101 (74-106) mg/dL Calcium 7.7 L (8.4-10.2) mg/dL Total Bilirubin 0.30 (0.2-1.3) mg/dL AST 18 (17-59) U/L ALT 14 (0-50) U/L Alkaline Phosphatase 83 (38-126) U/L Troponin I (0.000-0.034) ng/mL Serum Total Protein 6.4 (6.3-8.2) g/dL Albumin 3.3 L (3.5-5.0) g/dL Radiology Exams: Radiology Procedures Category Date Time Status ABDOMEN AND PELVIS W/0 CONTRAS [CT] Stat Exams 05/04/20 00:15 Completed CHEST 1 VIEW (PORTABLE) Stat Exams 05/03/20 22:49 Completed Assessment/Plan (1) UTI (urinary tract infection) Current Visit: Yes Status: Acute Qualifiers: Urinary tract infection type: acute cystitis Hematuria presence: without hematuria Qualified Code(s): N30.00 - Acute cystitis without hematuria Assessment & Plan: On rocephin IV day #2. The culture grew multiple harvey; however with his presentation of possible infection and stone, will continue through 3d of IV rocephin. Also, he had temp to 100.0 yesterday morning. If afebrile today, likely home tomorrow. Code(s): N39.0 - URINARY TRACT INFECTION, SITE NOT SPECIFIED (2) Renal colic on right side Current Visit: Yes Status: Resolved Code(s): N23 - UNSPECIFIED RENAL COLIC (3) Multiple sclerosis Current Visit: Yes Status: Chronic Code(s): G35 - MULTIPLE SCLEROSIS (4) Abrasion, leg w/o infection Current Visit: Yes Status: Acute Assessment & Plan: Present x weeks; PT to consult, thank you. Code(s): [id number] -
[2020-05-05] MEDS: Prozac 20 MG PO SCH (09:49)
[2020-05-05] MEDS: ROCEPHIN 1 Gm-D5w 50 ml Bag** 1 G/50 ML IVPB IV SCH (21:31)
[2020-05-06] MEDS: Sodium Chloride 0.9% 1000 ML 1,000 ML IV SCH (07:42)
--- NOTE | 2020-05-06 09:01 | PCM.NOTE ---
Date and Time: 05/06/20 0859 Subjective Assessment: patient feeling much better, no abd pain. tolerating po intake, feels like he has not trouble now. aldana is still in place Objective Exam General Appearance: no apparent distress, obese Neurologic Exam: alert, oriented x 3 Respiratory Exam: normal breath sounds, lungs clear, No respiratory distress Cardiovascular Exam: regular rate/rhythm, normal heart sounds Gastrointestinal/Abdomen Exam: soft, No tenderness, No mass OBJECTIVE DATA Vital Signs: Vital Signs - 24 hr Temp Pulse Resp BP Pulse Ox 05/06/20 07:33 99.1 F 87 18 137/73 91 L 05/06/20 07:05 88 L 05/06/20 04:00 99.1 F 90 20 138/74 92 L 05/05/20 23:42 98.8 F 92 H 18 155/75 93 L 05/05/20 23:15 94 L 05/05/20 19:15 98.4 F 92 H 20 137/82 93 L 05/05/20 17:37 91 L 05/05/20 15:00 98.2 F 94 H 14 166/86 90 L 05/05/20 11:00 96.8 F 78 14 132/78 92 L Pain Assessment - Last Documented Pain Intensity 0 Pain Scale Used [facility] Intake and Output: Intake & Output 05/03/20 05/04/20 05/05/20 05/06/20 11:59 11:59 11:59 11:59 Intake Total 343 2778 2690 Output Total 900 1800 6000 Balance -557 978 -3310 Weight 118.9 kg 124.7 kg 122.5 kg Assessment/Plan (1) UTI (urinary tract infection) Current Visit: Yes Status: Acute Qualifiers: Urinary tract infection type: acute cystitis Hematuria presence: without hematuria Qualified Code(s): N30.00 - Acute cystitis without hematuria Assessment & Plan: mixed harvey on culture but stone was present with fever and pyuria, on rocephin day 3. blood culture neg Code(s): N39.0 - URINARY TRACT INFECTION, SITE NOT SPECIFIED (2) Renal colic on right side Current Visit: Yes Status: Resolved Assessment & Plan: 3mm UVJ stone, pain resolved. will d/c aldana and if able to void and no return of pain likely home later today or tomorrow morning. Code(s): N23 - UNSPECIFIED RENAL COLIC (3) Multiple sclerosis Current Visit: Yes Status: Chronic Code(s): G35 - MULTIPLE SCLEROSIS (4) Nocturnal hypoxia Current Visit: Yes Status: Acute Assessment & Plan: will have sleep study after discharge Code(s): G47.34 - IDIO SLEEP RELATED NONOBSTRUCTIVE ALVEOLAR HYPOVENTILATION
[2020-05-06] MEDS: Prozac 20 MG PO SCH (10:55)
--- NOTE | 2020-05-06 14:33 | PCM.DS ---
Discharge Summary Date of Admission: 05/04/20 08:14 Admitting Physician: EDILMA BRITO Primary Care Provider: EDILMA BRITO Allergies Allergies No Known Drug Allergies Allergy (Verified 05/03/20 22:44) Hospital Summary - Hospital Course Hospital Course: patient was admitted with abdominal pain with radiation to right flank, found to have right UVJ stone and presented with fever, urine culture negative. fever resolved, was treated with iv rocephin x 3 days in spite of negative urine and blood culture, chest xray was negative. - Vitals & Intake/Output Vital Signs: Vital Signs Temperature 98.7 F 05/06/20 12:00 Pulse Rate 63 05/06/20 12:00 Respiratory Rate 17 05/06/20 12:00 Blood Pressure 119/84 05/06/20 12:00 O2 Sat by Pulse Oximetry 95 05/06/20 12:00 Intake & Output: Intake & Output 05/04/20 05/05/20 05/06/20 05/07/20 11:59 11:59 11:59 11:59 Intake Total 343 2778 2930 Output Total 900 1800 6350 Balance -557 978 -3420 Weight 118.9 kg 124.7 kg 122.5 kg - Lab Result Diagrams: 05/05/20 04:40 05/05/20 04:40 Micro Results-Entire Visit: Microbiology 05/03/20 00:00 Blood Culture - Preliminary Blood NO GROWTH TO DATE 05/03/20 00:10 Blood Culture - Preliminary Blood NO GROWTH TO DATE 05/03/20 00:00 Urine Culture - Final Catherized MIXED ELVIS; 3 OR MORE TYPES. NO PREDOMINANT ORGANISM. NO FURTHER WORKUP. PLEASE RESUBMIT IF CLINICALLY INDICATED. - Procedures and Test Procedures and Tests throughout Hospitalization: Therapy Orders & Screens 05/04/20 06:00 EKG REPEAT IN AM Comment: 05/05/20 04:44 Oxygen NASAL CANNULA 2 lpm Comment: Diagnosis: Right renal colic, UTI 05/05/20 08:44 PT Eval & Treat ( Order) ONCE Reason for Eval:: eschars/abrasions on RLE, present x wks Diagnosis: Right renal colic, UTI 05/06/20 08:37 RT Miscellaneous Order ROUTINE Comment: diagnosis- LUCA Physician Instructions: Reason For Exam: arrange for at home sleep study after dc Diagnosis: Right renal colic, UTI Discharge Exam General Appearance: no apparent distress, obese Neurologic Exam: alert, oriented x 3 Respiratory Exam: normal breath sounds, lungs clear, No respiratory distress Cardiovascular Exam: regular rate/rhythm, normal heart sounds Gastrointestinal/Abdomen Exam: soft, No tenderness, No mass Extremity Exam: normal inspection, normal range of motion Final Diagnosis/Problem List - Final Discharge Diagnosis/Problem (1) Renal colic on right side Current Visit: Yes Status: Resolved Assessment & Plan: pain resolved, aldana out and pain resolved. Code(s): N23 - UNSPECIFIED RENAL COLIC (2) UTI (urinary tract infection) Current Visit: Yes Status: Acute Assessment & Plan: no further tx required, urine culture negative and has received IV rocephin x 3 days Code(s): N39.0 - URINARY TRACT INFECTION, SITE NOT SPECIFIED (3) Multiple sclerosis Current Visit: Yes Status: Chronic Code(s): G35 - MULTIPLE SCLEROSIS (4) Nocturnal hypoxia Current Visit: Yes Status: Acute Code(s): G47.34 - IDIO SLEEP RELATED NONOBSTRUCTIVE ALVEOLAR HYPOVENTILATION (5) Obstructive sleep apnea Current Visit: Yes Status: Acute Assessment & Plan: patient with observed episodes of apnea and hypoxia on overnight pulse ox, high likelihood of LUCA, has chronic daytime fatigue. outpatient sleep study has been ordered upon discharge. Code(s): G47.33 - OBSTRUCTIVE SLEEP APNEA (ADULT) (PEDIATRIC) - Discharge Disposition: Home, Self-Care Condition: Stable Prescriptions: Continue Fluoxetine HCl 20 mg PO DAILY Amitriptyline HCl 100 mg PO HS Additional Instructions: FOLLOW INSTRUCTIONS GIVEN TO YOU REGARDING SLEEP STUDY Follow up with: EDILMA BRITO MD [Primary Care Provider] - 1 Week
[2020-05-06] MEDS: ROCEPHIN 1 Gm-D5w 50 ml Bag** 1 G/50 ML IVPB IV SCH (21:49)
[2020-05-07 05:20] LABS: Hematocrit 39.5 % (42-50); Hemoglobin 13.3 gm/dl (12.5-18.0); Mean Cell Volume 89.8 fl (78-100); Mean Corpuscular Hemoglobin 30.2 pg (26-32); Mean Corpuscular Hgb Concent. 33.7 g/dl (32-36); Mean Platelet Volume 10.3 fl (7.5-11.0); Platelet Count 269 K/mm3 (150-450); Red Cell Distribution Width 13.9 % (11.5-14.0); White Blood Count 8.2 K/mm3 (4.0-10.5)
[2020-05-07 05:27] LABS: Absolute Neutrophil Ct (ANC) 5.41 (1.4-6.9); BASOPHIL % 0.4 % (0.0-0.4); Basophil (Absolute #) 0.03 (0-0.4); Eosinophil (Absolute #) 0.33 (0-0.5); Lymphocyte (Absolute #) 1.27 (1.0-4.6); Lymphocytes % 15.4 % (24.0-44.0); Monocytes % 14.6 % (0.0-12.0); Neutrophil % 65.6 % (36.0-66.0)
[2020-05-07 05:44] LABS: ANION GAP 8.6 MEQ/L (5-15); BLOOD UREA NITROGEN 11 mg/dL (9-20); CHLORIDE 105 mmol/L (98-107); Calcium 8.2 mg/dL (8.4-10.2); Carbon Dioxide 26 mmol/L (22-30); Creatinine 1 0.75 mg/dL (0.66-1.25); EST GLOMERULAR FILTRATION RATE > 60.0 ML/MIN; Glucose 96 mg/dL (74-106); Potassium 3.2 mmol/L (3.5-5.1); SODIUM 136 mmol/L (137-145)
[2020-05-07] MEDS ORDERED: Sodium Chloride 0.9% 10 ML FLUSH Syringe IV SCH (06:00)
[2020-05-07 07:51] VITALS: BP 143/81; PULSE 79; O2SAT 91
--- NOTE | 2020-05-07 08:18 | PCM.DS ---
Discharge Summary Date of Admission: 05/04/20 08:14 Admitting Physician: EDILMA BRITO Primary Care Provider: EDILMA BRITO Allergies Allergies No Known Drug Allergies Allergy (Verified 05/03/20 22:44) Hospital Summary - Hospital Course Hospital Course: patient was admitted with right UVJ renal stone 3mm and fever, treated for UTI but cultures were negative. felt he was fully treated with IV rocephin x 3 days, no fever now and aldana is out and able to void. feels much better at time of discharge. - Vitals & Intake/Output Vital Signs: Vital Signs Temperature 98.6 F 05/07/20 07:50 Pulse Rate 79 05/07/20 07:50 Respiratory Rate 18 05/07/20 07:50 Blood Pressure 143/81 05/07/20 07:50 O2 Sat by Pulse Oximetry 91 L 05/07/20 07:50 Intake & Output: Intake & Output 05/04/20 05/05/20 05/06/20 05/07/20 11:59 11:59 11:59 11:59 Intake Total 343 2778 2930 1531 Output Total 900 1800 6350 1300 Balance -557 978 -3420 231 Weight 118.9 kg 124.7 kg 122.5 kg 120.8 kg - Lab Result Diagrams: 05/07/20 04:35 05/07/20 04:35 Lab Results-Last 24 Hrs: Lab Results-Last 24 Hours 05/07/20 05/07/20 Range/Units 04:35 04:35 WBC 8.2 (4.0-10.5) K/mm3 RBC 4.40 (4.1-5.6) M/mm3 Hgb 13.3 (12.5-18.0) gm/dl Hct 39.5 L (42-50) % MCV 89.8 (78-100) fl MCH 30.2 (26-32) pg MCHC 33.7 (32-36) g/dl RDW 13.9 (11.5-14.0) % Plt Count 269 (150-450) K/mm3 MPV 10.3 (7.5-11.0) fl Gran % 65.6 (36.0-66.0) % Eos # (Auto) 0.33 (0-0.5) Absolute Lymphs (auto) 1.27 (1.0-4.6) Absolute Monos (auto) 1.20 (0.0-1.3) Lymphocytes % 15.4 L (24.0-44.0) % Monocytes % 14.6 H (0.0-12.0) % Eosinophils % 4.0 (0.00-5.0) % Basophils % 0.4 (0.0-0.4) % Absolute Granulocytes 5.41 (1.4-6.9) Basophils # 0.03 (0-0.4) Sodium 136 L (137-145) mmol/L Potassium 3.2 L (3.5-5.1) mmol/L Chloride 105 (98-107) mmol/L Carbon Dioxide 26 (22-30) mmol/L Anion Gap 8.6 (5-15) MEQ/L BUN 11 (9-20) mg/dL Creatinine 0.75 (0.66-1.25) mg/dL Estimated GFR > 60.0 ML/MIN Glucose 96 (74-106) mg/dL Calcium 8.2 L (8.4-10.2) mg/dL Micro Results-Entire Visit: Microbiology 05/03/20 00:00 Blood Culture - Preliminary Blood NO GROWTH TO DATE 05/03/20 00:10 Blood Culture - Preliminary Blood NO GROWTH TO DATE 05/03/20 00:00 Urine Culture - Final Catherized MIXED ELVIS; 3 OR MORE TYPES. NO PREDOMINANT ORGANISM. NO FURTHER WORKUP. PLEASE RESUBMIT IF CLINICALLY INDICATED. - Procedures and Test Procedures and Tests throughout Hospitalization: Therapy Orders & Screens 05/04/20 06:00 EKG REPEAT IN AM Comment: 05/05/20 04:44 Oxygen NASAL CANNULA 2 lpm Comment: Diagnosis: Right renal colic, UTI 05/05/20 08:44 PT Eval & Treat ( Order) ONCE Reason for Eval:: eschars/abrasions on RLE, present x wks Diagnosis: Right renal colic, UTI 05/06/20 15:49 Home Sleep Study ONCE Comment: Diagnosis: Right renal colic, UTI Discharge Exam General Appearance: no apparent distress, alert, obese Neurologic Exam: alert, oriented x 3 Respiratory Exam: normal breath sounds, lungs clear, No respiratory distress Cardiovascular Exam: regular rate/rhythm, normal heart sounds Gastrointestinal/Abdomen Exam: soft, No tenderness, No mass Extremity Exam: normal inspection, normal range of motion Skin Exam: normal color, warm, dry Final Diagnosis/Problem List - Final Discharge Diagnosis/Problem (1) Renal colic on right side Current Visit: Yes Status: Resolved Assessment & Plan: resolved Code(s): N23 - UNSPECIFIED RENAL COLIC (2) UTI (urinary tract infection) Current Visit: Yes Status: Acute Assessment & Plan: fully treated with rocephin, culture was negative Code(s): N39.0 - URINARY TRACT INFECTION, SITE NOT SPECIFIED (3) Multiple sclerosis Current Visit: Yes Status: Chronic Code(s): G35 - MULTIPLE SCLEROSIS (4) Nocturnal hypoxia Current Visit: Yes Status: Acute Code(s): G47.34 - IDIO SLEEP RELATED NONOBSTRUCTIVE ALVEOLAR HYPOVENTILATION (5) Obstructive sleep apnea Current Visit: Yes Status: Acute Assessment & Plan: observed apnea with desaturation during sleep, overnight pulse ox shows periods of hypoxia, will schedule for outpatient sleep study on discharge. Code(s): G47.33 - OBSTRUCTIVE SLEEP APNEA (ADULT) (PEDIATRIC) - Discharge Disposition: Home, Self-Care Condition: Stable Prescriptions: Continue Fluoxetine HCl 20 mg PO DAILY Amitriptyline HCl 100 mg PO HS Instructions: Renal Colic (DC) Additional Instructions: FOLLOW INSTRUCTIONS GIVEN TO YOU REGARDING SLEEP STUDY Follow up with: EDILMA BRITO MD [Primary Care Provider] - 05/13/20 10:45 am ADAM BRYANT NP [[employer]IED HE[employer] PROFESSION STAFF] - 05/14/20 9:15 am
[2020-05-07] MEDS: Prozac 20 MG PO SCH (09:03)
[2020-05-07] MEDS ORDERED: FLUZONE QUAD 2020-2021 SYRINGE IM ONE (09:15)
== END 2020-05-07 10:20 | disposition home or self-care (01) | DRG 694 ==
LOC: ED 22:42 → MED SURG 05-04 02:40 → OBSVTOIN 05-04 08:14
PROVIDERS: ADMIT Family Medicine; ATTEND Family Medicine
DX: N23 Unspecified renal colic (principal); N39.0 Urinary tract infection, site not specified; G35 Multiple sclerosis; G47.37 Central sleep apnea in conditions classified elsewhere; G47.33 Obstructive sleep apnea (adult) (pediatric); S80.811A Abrasion, right lower leg, initial encounter; R09.02 Hypoxemia; Z79.899 Other long term (current) drug therapy
CPT/HCPCS: 36415; 51702; 71045; 74176; 80048; 80053; 81001; 82150; 82805; 83605; 83690; 83735; 83880; 84484; 85025; 85379; 85652; 86308; 87040; 87086; 87651; 93005; 93041; 93268; 94760; 94762; 96360; 96361; 96365; 96374; 97161; 99285; G0008; G0398; 90686; 95806; J0696; J2405; A9270-GY

== ENCOUNTER 2021-01-11 20:10 | Observation (INO) | payer MEDICARE, OTHER ==
[2021-01-11 21:02] LABS: Absolute Neutrophil Ct (ANC) 12.41 (1.4-6.9); BASOPHIL % 0.3 % (0.0-0.4); Basophil (Absolute #) 0.04 (0-0.4); Eosinophil % 0.4 % (0.00-5.0); Eosinophil (Absolute #) 0.06 (0-0.5); Hematocrit 47.1 % (42-50); Hemoglobin 15.5 gm/dl (12.5-18.0); Lymphocyte (Absolute #) 0.62 (1.0-4.6); Lymphocytes % 4.3 % (24.0-44.0); Mean Cell Volume 90.1 fl (78-100); Mean Corpuscular Hemoglobin 29.6 pg (26-32); Mean Corpuscular Hgb Concent. 32.9 g/dl (32-36); Mean Platelet Volume 9.9 fl (7.5-11.0); Monocyte (Absolute #) 1.15 (0.0-1.3); Monocytes % 8.1 % (0.0-12.0); Neutrophil % 86.9 % (36.0-66.0); Platelet Count 309 K/mm3 (150-450); Red Blood Count 5.23 M/mm3 (4.1-5.6); Red Cell Distribution Width 13.6 % (11.5-14.0); White Blood Count 14.3 K/mm3 (4.0-10.5)
[2021-01-11 21:06] LABS: Appearance CLEAR (CLEAR); Bilirubin NEGATIVE (NEGATIVE); Blood NEGATIVE Ery/ul (0-5); Glucose NEGATIVE (NEGATIVE); Ketones NEGATIVE (NEGATIVE); Leukocyte Esterase TRACE (NEGATIVE); Nitrite NEGATIVE (NEGATIVE); Protein,Urine Dip NEGATIVE (Negative); RBC 0-2 /HPF (0-2); Specific Gravity 1.015 (1.005-1.025); Urobilinogen 2 mg/dL (0-1)
[2021-01-11] MEDS ORDERED: Sodium Chloride 0.9% 1000 ML 1,000 ML IV STA (21:15)
[2021-01-11] MEDS ORDERED: Zofran 4 MG/2 ML VIAL IV ONE (21:15)
[2021-01-11 21:16] LABS: ALBUMIN 4.4 g/dL (3.5-5.0); ALKALINE PHOSPHATASE 100 U/L (38-126); AMYLASE 38 U/L (30-110); ANION GAP 15.3 MEQ/L (5-15); BLOOD UREA NITROGEN 21 mg/dL (9-20); CHLORIDE 104 mmol/L (98-107); Calcium 8.7 mg/dL (8.4-10.2); Carbon Dioxide 21 mmol/L (22-30); Creatinine 1 0.99 mg/dL (0.66-1.25); EST GLOMERULAR FILTRATION RATE > 60.0 ML/MIN; Glucose 110 mg/dL (74-106); LIPASE 67 U/L (23-300); Potassium 3.9 mmol/L (3.5-5.1); SGOT/AST 32 U/L (17-59); SGPT/ALT 25 U/L (0-50); SODIUM 136 mmol/L (137-145); Total Protein 7.5 g/dL (6.3-8.2)
[2021-01-11] MEDS ORDERED: Zofran 4 MG/2 ML VIAL ONE (21:17)
[2021-01-11] MEDS ORDERED: Sodium Chloride 0.9% 1000 ML 1,000 ML ONE (21:17)
--- NOTE | 2021-01-11 21:27 | ERPHSYRPT ---
- History of Present Illness Historian: patient, other () Exam Limitations: clinical condition Patient Subjective Stated Complaint: pt c/o weakness, fatigue, and vomiting Triage Nursing Assessment: pt c/o weakness, fatigue and vomiting since 1700 today. Pt has hx of MSGloria Puckett lg, obese with active bs x4 quad. Pt states, "I have these type of events every few months". Physician History: 60 yo wm w MS who is wheel chair bound presents w N/V/fever since 18:00. He denies abdominal pain/hematemesis/melena/hematochezia/diarrhea/cough/chest p ain/dysuria/hematuria. Pt unable to transfer due to lethargy/MS, so EMS called to transfer pt. Timing/Duration: other (18:00) Quality: other (No pain) Abdominal Pain Onset Location: other (No pain) Pain Radiation: no radiation Severity of Pain-Max: none Severity of Pain-Current: none Modifying Factors: Improves With: nothing Associated Symptoms: fever/chills, fatigue, nausea, vomiting, No back, No chest pain, No diaphoresis, No diarrhea, No headache, No heartburn, No loss of appetite, No neck pain, No rash, No shortness of breath, No syncope, No weakness Previous symptoms: no prior history Allergies/Adverse Reactions: No Known Drug Allergies Allergy (Verified 01/11/21 20:31) Home Medications: Amitriptyline HCl 100 mg PO HS 08/04/19 [History] Tamsulosin HCl 0.4 mg [Flomax 0.4 MG] 1 tab PO DAILY 01/11/21 [History] Hx Tetanus, Diphtheria Vaccination/Date Given: Yes Hx Influenza Vaccination/Date Given: Yes Hx Pneumococcal Vaccination/Date Given: Yes Immunizations Up to Date: Yes Travel Risk - International Travel Have you traveled outside of the country in past 3 weeks: No - Coronavirus Screening Symptoms: Vomiting/Diarrhea, Headaches/Body Aches/Fatigue Close contact with a COVID-19 positive Pt in past 14-21 Days: No - Vaccine Status Have you recieved a Covid-19 vaccination: No - Review of Systems Constitutional: No Symptoms, Fever, Chills, Fatigue, Lethargy Eyes: No Symptoms Ears, Nose, & Throat: No Symptoms Respiratory: No Symptoms Cardiac: No Symptoms Abdominal/Gastrointestinal: No Symptoms, Nausea, Vomiting Genitourinary Symptoms: No Symptoms Musculoskeletal: No Symptoms Skin: No Symptoms Neurological: No Symptoms Psychological: No Symptoms Endocrine: No Symptoms Hematologic/Lymphatic: No Symptoms Immunological/Allergic: No Symptoms - Past Medical History Pertinent Past Medical History: Yes Neurological History: Peripheral Neuropathy, Other ENT History: No Pertinent History Cardiac History: No Pertinent History Respiratory History: No Pertinent History Endocrine Medical History: No Pertinent History Musculoskeletal History: No Pertinent History GI Medical History: No Pertinent History History: No Pertinent History Psycho-Social History: Depression Male Reproductive Disorders: No Pertinent History Other Medical History: Multiple sclerosis, neuropathy, - Past Surgical History Past Surgical History: No Neuro Surgical History: No Pertinent History Cardiac: No Pertinent History Respiratory: No Pertinent History Gastrointestinal: No Pertinent History Genitourinary: No Pertinent History Musculoskeletal: No Pertinent History Male Surgical History: No Pertinent History - Social History Smoking Status: Never smoker Exposure to second hand smoke: No Drug Use: none Patient Lives Alone: No - Nursing Vital Signs Nursing Vital Signs: Initial Vital Signs Temperature 103.1 F 01/11/21 20:45 Pulse Rate 113 H 01/11/21 20:45 Respiratory Rate 22 01/11/21 20:45 Blood Pressure 139/87 01/11/21 20:45 O2 Sat by Pulse Oximetry 93 L 01/11/21 20:45 Pain Scale Pain Intensity 0 Tachycardic/Febrile - Physical Exam General Appearance: mild distress, lethargy Eye Exam: PERRL/EOMI, eyes nml inspection Ears, Nose, Throat Exam: normal ENT inspection, TMs normal, pharynx normal Neck Exam: normal inspection, non-tender, supple, full range of motion Cardiovascular Exam: tachycardia, No murmur Extremity Exam: normal inspection Neurologic Exam: alert, oriented x 3, cooperative, dat instructor II-XII nml as tested, normal mood/affect, sensation nml Skin Exam: normal color, warm, dry Lymphatic Exam: No adenopathy SpO2 Interpretation: borderline oxygenation SpO2: 92 O2 Delivery: Room Air Ordered Tests: Active Orders 24 hr Category Date Time Status Bedrest ROUTINE Activity 01/12/21 01:28 Active Code Status Order ROUTINE Care 01/12/21 01:27 Active IV Care Q6H Care 01/12/21 01:[address] in Observation ROUTINE Care 01/12/21 01:27 Active Vital Signs Q4H Care 01/12/21 01:27 Active Clear Liquid Diet 01/12/21 Breakfast Active ABDOMEN AND PELVIS W/0 CONTRAS [CT] Stat Exams 01/11/21 21:32 Taken AMYLASE Stat Lab 01/11/21 20:50 Completed BLOOD CULTURE Stat Lab 01/12/21 Ordered CBC W DIFF AM.LAB Lab 01/12/21 04:00 Ordered CBC W DIFF Stat Lab 01/11/21 20:50 Completed CMP AM.LAB Lab 01/12/21 04:00 Ordered CMP Stat Lab 01/11/21 20:50 Completed CULTURE,URINE Stat Lab 01/11/21 20:53 Received LIPASE Stat Lab 01/11/21 20:50 Completed Lactic Acid AM.LAB Lab 01/12/21 04:00 Ordered Lactic Acid Stat Lab 01/11/21 21:00 Completed TROPONIN Q3H Lab 01/11/21 20:50 Completed TROPONIN Q3H Lab 01/12/21 02:45 Ordered TROPONIN Q3H Lab 01/12/21 05:45 Ordered TROPONIN Q3H Lab 01/12/21 08:45 Ordered UA W/RFX UR CULTURE Stat Lab 01/11/21 20:53 Completed Transfer Order Routine Transfer 01/12/21 Ordered Medication Summary Generic Name Dose Route Start Last Admin Trade Name Freq PRN Reason Stop Dose Admin Sodium Chloride 1,000 mls @ 100 mls/hr 01/12/21 01:30 Sodium Chloride 0.9% 1000 Ml IV 02/11/21 01:29 .Q10H CAROLE Ceftriaxone Sodium/Dextrose 1 g in 50 mls @ 100 mls/hr 01/12/21 10:00 Rocephin 1 Gm-D5w 50 Ml Bag IV 01/15/21 09:59 Q24H10 CAROLE Ondansetron HCl 4 mg 01/12/21 01:27 Zofran 4 Mg/2 Ml Vial IV 02/11/21 01:26 Q6H PRN PRN NAUSEA/VOMITING Pantoprazole Sodium 40 mg 01/12/21 10:00 Protonix 40 Mg Iv IV 02/11/21 09:59 Q24H10 CAROLE Discontinued Medications Generic Name Dose Route Start Last Admin Trade Name Freq PRN Reason Stop Dose Admin Acetaminophen 1,000 mg 01/11/21 23:34 01/11/21 23:36 Tylenol Extra Strength 500 Mg PO 01/11/21 23:35 1,000 mg STAT ONE Administration Acetaminophen Confirm 01/11/21 23:34 Tylenol Extra Strength 500 Mg Administered 01/11/21 23:35 Dose 1,000 mg .ROUTE .STK-MED ONE Sodium Chloride 1,000 mls @ 999 mls/hr 01/11/21 21:15 01/11/21 22:10 Sodium Chloride 0.9% 1000 Ml IV 01/11/21 22:15 Infused .Q1H1M STA Infusion Sodium Chloride Confirm 01/11/21 21:17 Sodium Chloride 0.9% 1000 Ml Administered 01/11/21 21:18 Dose 1,000 mls @ ud .ROUTE .STK-MED ONE Ceftriaxone Sodium/Dextrose 1 g in 50 mls @ 100 mls/hr 01/12/21 01:25 01/12/21 01:52 Rocephin 1 Gm-D5w 50 Ml Bag IV 01/12/21 01:54 100 mls/hr STAT STA 100 mls/hr Administration Ondansetron HCl 4 mg 01/11/21 21:15 01/11/21 21:26 Zofran 4 Mg/2 Ml Vial IV 01/11/21 21:16 4 mg STAT ONE Administration Ondansetron HCl Confirm 01/11/21 21:17 Zofran 4 Mg/2 Ml Vial Administered 01/11/21 21:18 Dose 4 mg .ROUTE .STK-MED ONE Lab/Rad Data: Laboratory Result Diagrams 01/11/21 20:50 01/11/21 20:50 Laboratory Results 01/11/21 01/11/21 01/11/21 Range/Units 21:00 20:53 20:50 WBC (4.0-10.5) K/mm3 RBC (4.1-5.6) M/mm3 Hgb (12.5-18.0) gm/dl Hct (42-50) % MCV (78-100) fl MCH (26-32) pg MCHC (32-36) g/dl RDW (11.5-14.0) % Plt Count (150-450) K/mm3 MPV (7.5-11.0) fl Gran % (36.0-66.0) % Eos # (Auto) (0-0.5) Absolute Lymphs (auto) (1.0-4.6) Absolute Monos (auto) (0.0-1.3) Lymphocytes % (24.0-44.0) % Monocytes % (0.0-12.0) % Eosinophils % (0.00-5.0) % Basophils % (0.0-0.4) % Absolute Granulocytes (1.4-6.9) Basophils # (0-0.4) Sodium 136 L (137-145) mmol/L Potassium 3.9 (3.5-5.1) mmol/L Chloride 104 (98-107) mmol/L Carbon Dioxide 21 L (22-30) mmol/L Anion Gap 15.3 H (5-15) MEQ/L BUN 21 H (9-20) mg/dL Creatinine 0.99 (0.66-1.25) mg/dL Estimated GFR > 60.0 ML/MIN Glucose 110 H (74-106) mg/dL Lactic Acid 1.7 (0.4-2.0) Calcium 8.7 (8.4-10.2) mg/dL Total Bilirubin 0.40 (0.2-1.3) mg/dL AST 32 (17-59) U/L ALT 25 (0-50) U/L Alkaline Phosphatase 100 (38-126) U/L Troponin I (0.000-0.034) ng/mL Serum Total Protein 7.5 (6.3-8.2) g/dL Albumin 4.4 (3.5-5.0) g/dL Amylase 38 (30-110) U/L Lipase 67 (23-300) U/L Urine Color YELLOW (YELLOW) Urine Appearance CLEAR (CLEAR) Urine pH 6.0 (5-6) Ur Specific [place] 1.015 (1.005-1.025) Urine Protein NEGATIVE (Negative) Urine Ketones NEGATIVE (NEGATIVE) Urine Blood NEGATIVE (0-5) Justen/ul Urine Nitrite NEGATIVE (NEGATIVE) Urine Bilirubin NEGATIVE (NEGATIVE) Urine Urobilinogen 2 (0-1) mg/dL Ur Leukocyte Esterase TRACE (NEGATIVE) Urine WBC (Auto) 16-25 (0-5) /HPF Urine RBC (Auto) 0-2 (0-2) /HPF U Epithel Cells (Auto) NONE (FEW) /HPF Urine Bacteria (Auto) NONE (NEGATIVE) /HPF Urine Culture Reflexed ORDERED SEPARATELY (NO) Urine Glucose NEGATIVE (NEGATIVE) mg/dL 01/11/21 01/11/21 01/11/21 Range/Units 20:50 20:50 00:10 WBC 14.3 H (4.0-10.5) K/mm3 RBC 5.23 (4.1-5.6) M/mm3 Hgb 15.5 (12.5-18.0) gm/dl Hct 47.1 (42-50) % MCV 90.1 (78-100) fl MCH 29.6 (26-32) pg MCHC 32.9 (32-36) g/dl RDW 13.6 (11.5-14.0) % Plt Count 309 (150-450) K/mm3 MPV 9.9 (7.5-11.0) fl Gran % 86.9 H (36.0-66.0) % Eos # (Auto) 0.06 (0-0.5) Absolute Lymphs (auto) 0.62 L (1.0-4.6) Absolute Monos (auto) 1.15 (0.0-1.3) Lymphocytes % 4.3 L (24.0-44.0) % Monocytes % 8.1 (0.0-12.0) % Eosinophils % 0.4 (0.00-5.0) % Basophils % 0.3 (0.0-0.4) % Absolute Granulocytes 12.41 H (1.4-6.9) Basophils # 0.04 (0-0.4) Sodium (137-145) mmol/L Potassium (3.5-5.1) mmol/L Chloride (98-107) mmol/L Carbon Dioxide (22-30) mmol/L Anion Gap (5-15) MEQ/L BUN (9-20) mg/dL Creatinine (0.66-1.25) mg/dL Estimated GFR ML/MIN Glucose (74-106) mg/dL Lactic Acid (0.4-2.0) Calcium (8.4-10.2) mg/dL Total Bilirubin (0.2-1.3) mg/dL AST (17-59) U/L ALT (0-50) U/L Alkaline Phosphatase (38-126) U/L Troponin I < 0.012 < 0.012 (0.000-0.034) ng/mL Serum Total Protein (6.3-8.2) g/dL Albumin (3.5-5.0) g/dL Amylase (30-110) U/L Lipase (23-300) U/L Urine Color (YELLOW) Urine Appearance (CLEAR) Urine pH (5-6) Ur Specific [place] (1.005-1.025) Urine Protein (Negative) Urine Ketones (NEGATIVE) Urine Blood (0-5) Justen/ul Urine Nitrite (NEGATIVE) Urine Bilirubin (NEGATIVE) Urine Urobilinogen (0-1) mg/dL Ur Leukocyte Esterase (NEGATIVE) Urine WBC (Auto) (0-5) /HPF Urine RBC (Auto) (0-2) /HPF U Epithel Cells (Auto) (FEW) /HPF Urine Bacteria (Auto) (NEGATIVE) /HPF Urine Culture Reflexed (NO) Urine Glucose (NEGATIVE) mg/dL - Progress Progress: improved Progress Note: 01/11/21 23:47 1L NS bolus/4mg IV Zofran 1gm po tylenol when N/V subsided 01/12/21 01:[address] lynn 01/12/21 01:59 Long ER time due to delay getting CT and reading of CT scan Discussed with : Mayelin Counseled pt/family regarding: lab results, diagnosis, rad results - Departure Departure Disposition: Observation Clinical Impression: Nausea & vomiting, UTI (urinary tract infection) Condition: Stable Critical Care Time: Yes Critical Care Time(excluding separately billable procedures): Critical 30-74 mins Referrals: EDILMA BRITO MD [Primary Care Provider] -
[2021-01-11] MEDS ORDERED: TYLENOL EXTRA STRENGTH 500 MG ONE (23:34)
[2021-01-11] MEDS ORDERED: TYLENOL EXTRA STRENGTH 500 MG PO ONE (23:34)
[2021-01-12] MEDS ORDERED: ROCEPHIN 1 Gm-D5w 50 ml Bag** 1 G/50 ML IVPB IV STA (01:25)
[2021-01-12] MEDS ORDERED: Zofran 4 MG/2 ML VIAL IV PRN (01:27)
[2021-01-12] MEDS ORDERED: ROCEPHIN 1 Gm-D5w 50 ml Bag** 1 G/50 ML IVPB IV ONE (01:28)
[2021-01-12] MEDS: Sodium Chloride 0.9% 1000 ML 1,000 ML IV SCH ×3 (02:27→21:51)
[2021-01-12 05:14] LABS: Absolute Neutrophil Ct (ANC) 14.02 (1.4-6.9); BASOPHIL % 0.2 % (0.0-0.4); Basophil (Absolute #) 0.03 (0-0.4); Eosinophil % 0.2 % (0.00-5.0); Eosinophil (Absolute #) 0.03 (0-0.5); Hematocrit 42.5 % (42-50); Hemoglobin 13.7 gm/dl (12.5-18.0); Lymphocytes % 6.7 % (24.0-44.0); Mean Corpuscular Hemoglobin 29.7 pg (26-32); Mean Corpuscular Hgb Concent. 32.2 g/dl (32-36); Mean Platelet Volume 10.4 fl (7.5-11.0); Monocytes % 7.9 % (0.0-12.0); Platelet Count 288 K/mm3 (150-450); Red Blood Count 4.62 M/mm3 (4.1-5.6); Red Cell Distribution Width 13.7 % (11.5-14.0); White Blood Count 16.5 K/mm3 (4.0-10.5)
[2021-01-12 06:00] LABS: ALBUMIN 3.6 g/dL (3.5-5.0); ALKALINE PHOSPHATASE 72 U/L (38-126); ANION GAP 12.9 MEQ/L (5-15); BLOOD UREA NITROGEN 21 mg/dL (9-20); CHLORIDE 105 mmol/L (98-107); Calcium 8.1 mg/dL (8.4-10.2); Carbon Dioxide 23 mmol/L (22-30); Creatinine 1 0.98 mg/dL (0.66-1.25); EST GLOMERULAR FILTRATION RATE > 60.0 ML/MIN; Glucose 101 mg/dL (74-106); Potassium 3.8 mmol/L (3.5-5.1); SGOT/AST 30 U/L (17-59); SGPT/ALT 20 U/L (0-50); SODIUM 137 mmol/L (137-145); Total Protein 6.2 g/dL (6.3-8.2)
--- NOTE | 2021-01-12 08:58 | XRAY ---
Indication: Emesis, weakness, nausea, vomiting, and fever. Multiple contiguous axial images obtained through the abdomen and pelvis without contrast. Comparison: May 04, 2020. Patient's arms again produces beam artifact. Lung bases again demonstrates bibasilar subsegmental atelectasis/scarring and right hemidiaphragm elevation. Heart is not enlarged. Noncontrasted stomach and bowel loops remaining nonobstructed with normal appendix. There is again mild diffuse scattered colonic fecal debris with mild rectal impaction. Again incidental nonobstructing right renal micro-calculi with new left renal punctate calculi, Conn catheter in situ, and 2.5 cm right lobe hepatic cyst. No free fluid/air. Remaining liver, gallbladder, pancreas, spleen, adrenal glands, kidneys, ureters, and aorta are unremarkable for noncontrast exam. Osseous structures intact again with osteopenia, multilevel degenerative spondylosis, and levorotoscoliosis. Impression: 1. Again diffuse fecal stasis with rectal impaction. 2. Incidental right hemidiaphragm elevation, hepatic cyst, nonobstructing bilateral renal micro-calculi, and chronic bony findings. Comment: Preliminary interpretation was made by [facility]. No critical discrepancy.
[2021-01-12] MEDS: PROTONIX 40 MG IV IV SCH (09:34)
--- NOTE | 2021-01-12 09:56 | PCM.HP ---
History of Present Illness - Chief Complaint Chief Complaint: N/V/UTI History of Present Illness: is a 60 year old male with advanced multiple sclerosis, yesterday he suddenly developed vomiting and fever, became weak and unable to transfer so called for ambulance, he notes he is feeling better today and did not vomit overnight, currently afebrile. no diarrhea. - Review of Systems Constitutional: Fever Respiratory: No Cough, No Short Of Breath Cardiac: No Chest Pain, No Edema, No Syncope Abdominal/Gastrointestinal: Vomiting Genitourinary Symptoms: No Dysuria All Other Systems: Reviewed and Negative Medications & Allergies Home Medications: Home Medication List Amitriptyline HCl 100 mg PO HS 08/04/19 [History Confirmed 01/11/21] Tamsulosin HCl 0.4 mg [Flomax 0.4 MG] 0.4 mg PO DAILY 01/11/21 [History Confirmed 01/12/21] Allergies/Adverse Reactions: Allergies Allergy/AdvReac Type Severity Reaction Status Date / Time No Known Drug Allergies Allergy Verified 01/12/21 04:11 - Past Medical History Past Medical History: Yes Neurological History: Peripheral Neuropathy, Other ENT History: No Pertinent History Cardiac History: No Pertinent History Respiratory History: No Pertinent History Endocrine Medical History: No Pertinent History Musculoskelatal History: No Pertinent History GI Medical History: No Pertinent History History: No Pertinent History Pyscho-Social History: Depression Male Reproductive Disorders: No Pertinent History Comment: Multiple sclerosis, neuropathy, - Past Surgical History Past Surgical History: No Neuro Surgical History: No Pertinent History Cardiac History: No Pertinent History Respiratory Surgery: No Pertinent History GI Surgical History: No Pertinent History Genitourinary Surgical Hx: No Pertinent History Musculskeletal Surgical Hx: No Pertinent History Male Surgical History: No Pertinent History - Social History Smoking Status: Never smoker Exposure to second hand smoke: No Alcohol: None Drug Use: none - Physical Exam Vital Signs: Vital Signs - 24 hr Temp Pulse Resp BP Pulse Ox 01/12/21 07:56 98.7 F 90 16 126/75 95 01/12/21 07:54 98.7 F 90 16 126/75 95 01/12/21 03:50 99.6 F 101 H 20 143/71 95 01/12/21 03:47 99.6 F 101 H 20 143/71 95 01/12/21 03:41 99.6 F 101 H 20 143/71 95 01/12/21 02:25 105 H 115/75 92 L 01/12/21 02:00 92 L 01/12/21 01:00 114 H 20 109/77 92 L 01/12/21 00:00 99.8 F 115 H 20 111/79 92 L 01/11/21 23:45 119 H 122/81 92 L 01/11/21 22:09 117 H 126/76 93 L 01/11/21 21:14 117 H 29 H 129/84 92 L 01/11/21 20:45 103.1 F 113 H 22 139/87 93 L General Appearance: no apparent distress, alert Respiratory Exam: normal breath sounds, lungs clear, No respiratory distress Cardiovascular Exam: regular rate/rhythm, normal heart sounds, normal peripheral pulses Gastrointestinal/Abdomen Exam: soft, normal bowel sounds, No tenderness, No mass Results - Labs Lab/Micro Results: Lab Results-Last 24 Hours 01/11/21 01/11/21 01/11/21 Range/Units 00:10 20:50 20:50 WBC 14.3 H (4.0-10.5) K/mm3 RBC 5.23 (4.1-5.6) M/mm3 Hgb 15.5 (12.5-18.0) gm/dl Hct 47.1 (42-50) % MCV 90.1 (78-100) fl MCH 29.6 (26-32) pg MCHC 32.9 (32-36) g/dl RDW 13.6 (11.5-14.0) % Plt Count 309 (150-450) K/mm3 MPV 9.9 (7.5-11.0) fl Gran % 86.9 H (36.0-66.0) % Eos # (Auto) 0.06 (0-0.5) Absolute Lymphs (auto) 0.62 L (1.0-4.6) Absolute Monos (auto) 1.15 (0.0-1.3) Lymphocytes % 4.3 L (24.0-44.0) % Monocytes % 8.1 (0.0-12.0) % Eosinophils % 0.4 (0.00-5.0) % Basophils % 0.3 (0.0-0.4) % Absolute Granulocytes 12.41 H (1.4-6.9) Basophils # 0.04 (0-0.4) Sodium (137-145) mmol/L Potassium (3.5-5.1) mmol/L Chloride (98-107) mmol/L Carbon Dioxide (22-30) mmol/L Anion Gap (5-15) MEQ/L BUN (9-20) mg/dL Creatinine (0.66-1.25) mg/dL Estimated GFR ML/MIN Glucose (74-106) mg/dL Lactic Acid (0.4-2.0) Calcium (8.4-10.2) mg/dL Total Bilirubin (0.2-1.3) mg/dL AST (17-59) U/L ALT (0-50) U/L Alkaline Phosphatase (38-126) U/L Troponin I < 0.012 < 0.012 (0.000-0.034) ng/mL Serum Total Protein (6.3-8.2) g/dL Albumin (3.5-5.0) g/dL Amylase (30-110) U/L Lipase (23-300) U/L Urine Color (YELLOW) Urine Appearance (CLEAR) Urine pH (5-6) Ur Specific [place] (1.005-1.025) Urine Protein (Negative) Urine Ketones (NEGATIVE) Urine Blood (0-5) Justen/ul Urine Nitrite (NEGATIVE) Urine Bilirubin (NEGATIVE) Urine Urobilinogen (0-1) mg/dL Ur Leukocyte Esterase (NEGATIVE) Urine WBC (Auto) (0-5) /HPF Urine RBC (Auto) (0-2) /HPF U Epithel Cells (Auto) (FEW) /HPF Urine Bacteria (Auto) (NEGATIVE) /HPF Urine Culture Reflexed (NO) Urine Glucose (NEGATIVE) mg/dL SARS-CoV-2 (PCR) (NEGATIVE) 01/11/21 01/11/21 01/11/21 Range/Units 20:50 20:53 21:00 WBC (4.0-10.5) K/mm3 RBC (4.1-5.6) M/mm3 Hgb (12.5-18.0) gm/dl Hct (42-50) % MCV (78-100) fl MCH (26-32) pg MCHC (32-36) g/dl RDW (11.5-14.0) % Plt Count (150-450) K/mm3 MPV (7.5-11.0) fl Gran % (36.0-66.0) % Eos # (Auto) (0-0.5) Absolute Lymphs (auto) (1.0-4.6) Absolute Monos (auto) (0.0-1.3) Lymphocytes % (24.0-44.0) % Monocytes % (0.0-12.0) % Eosinophils % (0.00-5.0) % Basophils % (0.0-0.4) % Absolute Granulocytes (1.4-6.9) Basophils # (0-0.4) Sodium 136 L (137-145) mmol/L Potassium 3.9 (3.5-5.1) mmol/L Chloride 104 (98-107) mmol/L Carbon Dioxide 21 L (22-30) mmol/L Anion Gap 15.3 H (5-15) MEQ/L BUN 21 H (9-20) mg/dL Creatinine 0.99 (0.66-1.25) mg/dL Estimated GFR > 60.0 ML/MIN Glucose 110 H (74-106) mg/dL Lactic Acid 1.7 (0.4-2.0) Calcium 8.7 (8.4-10.2) mg/dL Total Bilirubin 0.40 (0.2-1.3) mg/dL AST 32 (17-59) U/L ALT 25 (0-50) U/L Alkaline Phosphatase 100 (38-126) U/L Troponin I (0.000-0.034) ng/mL Serum Total Protein 7.5 (6.3-8.2) g/dL Albumin 4.4 (3.5-5.0) g/dL Amylase 38 (30-110) U/L Lipase 67 (23-300) U/L Urine Color YELLOW (YELLOW) Urine Appearance CLEAR (CLEAR) Urine pH 6.0 (5-6) Ur Specific [place] 1.015 (1.005-1.025) Urine Protein NEGATIVE (Negative) Urine Ketones NEGATIVE (NEGATIVE) Urine Blood NEGATIVE (0-5) Justen/ul Urine Nitrite NEGATIVE (NEGATIVE) Urine Bilirubin NEGATIVE (NEGATIVE) Urine Urobilinogen 2 (0-1) mg/dL Ur Leukocyte Esterase TRACE (NEGATIVE) Urine WBC (Auto) 16-25 (0-5) /HPF Urine RBC (Auto) 0-2 (0-2) /HPF U Epithel Cells (Auto) NONE (FEW) /HPF Urine Bacteria (Auto) NONE (NEGATIVE) /HPF Urine Culture Reflexed ORDERED SEPARATELY (NO) Urine Glucose NEGATIVE (NEGATIVE) mg/dL SARS-CoV-2 (PCR) (NEGATIVE) 01/12/21 01/12/21 01/12/21 Range/Units 01:59 02:00 04:00 WBC (4.0-10.5) K/mm3 RBC (4.1-5.6) M/mm3 Hgb (12.5-18.0) gm/dl Hct (42-50) % MCV (78-100) fl MCH (26-32) pg MCHC (32-36) g/dl RDW (11.5-14.0) % Plt Count (150-450) K/mm3 MPV (7.5-11.0) fl Gran % (36.0-66.0) % Eos # (Auto) (0-0.5) Absolute Lymphs (auto) (1.0-4.6) Absolute Monos (auto) (0.0-1.3) Lymphocytes % (24.0-44.0) % Monocytes % (0.0-12.0) % Eosinophils % (0.00-5.0) % Basophils % (0.0-0.4) % Absolute Granulocytes (1.4-6.9) Basophils # (0-0.4) Sodium (137-145) mmol/L Potassium (3.5-5.1) mmol/L Chloride (98-107) mmol/L Carbon Dioxide (22-30) mmol/L Anion Gap (5-15) MEQ/L BUN (9-20) mg/dL Creatinine (0.66-1.25) mg/dL Estimated GFR ML/MIN Glucose (74-106) mg/dL Lactic Acid (0.4-2.0) Calcium (8.4-10.2) mg/dL Total Bilirubin (0.2-1.3) mg/dL AST (17-59) U/L ALT (0-50) U/L Alkaline Phosphatase (38-126) U/L Troponin I < 0.012 < 0.012 (0.000-0.034) ng/mL Serum Total Protein (6.3-8.2) g/dL Albumin (3.5-5.0) g/dL Amylase (30-110) U/L Lipase (23-300) U/L Urine Color (YELLOW) Urine Appearance (CLEAR) Urine pH (5-6) Ur Specific [place] (1.005-1.025) Urine Protein (Negative) Urine Ketones (NEGATIVE) Urine Blood (0-5) Justen/ul Urine Nitrite (NEGATIVE) Urine Bilirubin (NEGATIVE) Urine Urobilinogen (0-1) mg/dL Ur Leukocyte Esterase (NEGATIVE) Urine WBC (Auto) (0-5) /HPF Urine RBC (Auto) (0-2) /HPF U Epithel Cells (Auto) (FEW) /HPF Urine Bacteria (Auto) (NEGATIVE) /HPF Urine Culture Reflexed (NO) Urine Glucose (NEGATIVE) mg/dL SARS-CoV-2 (PCR) NEGATIVE (NEGATIVE) 01/12/21 01/12/21 01/12/21 Range/Units 04:00 04:00 04:00 WBC 16.5 H (4.0-10.5) K/mm3 RBC 4.62 (4.1-5.6) M/mm3 Hgb 13.7 (12.5-18.0) gm/dl Hct 42.5 (42-50) % MCV 92.0 (78-100) fl MCH 29.7 (26-32) pg MCHC 32.2 (32-36) g/dl RDW 13.7 (11.5-14.0) % Plt Count 288 (150-450) K/mm3 MPV 10.4 (7.5-11.0) fl Gran % 85.0 H (36.0-66.0) % Eos # (Auto) 0.03 (0-0.5) Absolute Lymphs (auto) 1.10 (1.0-4.6) Absolute Monos (auto) 1.30 (0.0-1.3) Lymphocytes % 6.7 L (24.0-44.0) % Monocytes % 7.9 (0.0-12.0) % Eosinophils % 0.2 (0.00-5.0) % Basophils % 0.2 (0.0-0.4) % Absolute Granulocytes 14.02 H (1.4-6.9) Basophils # 0.03 (0-0.4) Sodium 137 (137-145) mmol/L Potassium 3.8 (3.5-5.1) mmol/L Chloride 105 (98-107) mmol/L Carbon Dioxide 23 (22-30) mmol/L Anion Gap 12.9 (5-15) MEQ/L BUN 21 H (9-20) mg/dL Creatinine 0.98 (0.66-1.25) mg/dL Estimated GFR > 60.0 ML/MIN Glucose 101 (74-106) mg/dL Lactic Acid 1.0 (0.4-2.0) Calcium 8.1 L (8.4-10.2) mg/dL Total Bilirubin 0.40 (0.2-1.3) mg/dL AST 30 (17-59) U/L ALT 20 (0-50) U/L Alkaline Phosphatase 72 (38-126) U/L Troponin I (0.000-0.034) ng/mL Serum Total Protein 6.2 L (6.3-8.2) g/dL Albumin 3.6 (3.5-5.0) g/dL Amylase (30-110) U/L Lipase (23-300) U/L Urine Color (YELLOW) Urine Appearance (CLEAR) Urine pH (5-6) Ur Specific [place] (1.005-1.025) Urine Protein (Negative) Urine Ketones (NEGATIVE) Urine Blood (0-5) Justen/ul Urine Nitrite (NEGATIVE) Urine Bilirubin (NEGATIVE) Urine Urobilinogen (0-1) mg/dL Ur Leukocyte Esterase (NEGATIVE) Urine WBC (Auto) (0-5) /HPF Urine RBC (Auto) (0-2) /HPF U Epithel Cells (Auto) (FEW) /HPF Urine Bacteria (Auto) (NEGATIVE) /HPF Urine Culture Reflexed (NO) Urine Glucose (NEGATIVE) mg/dL SARS-CoV-2 (PCR) (NEGATIVE) 01/12/21 Range/Units 08:51 WBC (4.0-10.5) K/mm3 RBC (4.1-5.6) M/mm3 Hgb (12.5-18.0) gm/dl Hct (42-50) % MCV (78-100) fl MCH (26-32) pg MCHC (32-36) g/dl RDW (11.5-14.0) % Plt Count (150-450) K/mm3 MPV (7.5-11.0) fl Gran % (36.0-66.0) % Eos # (Auto) (0-0.5) Absolute Lymphs (auto) (1.0-4.6) Absolute Monos (auto) (0.0-1.3) Lymphocytes % (24.0-44.0) % Monocytes % (0.0-12.0) % Eosinophils % (0.00-5.0) % Basophils % (0.0-0.4) % Absolute Granulocytes (1.4-6.9) Basophils # (0-0.4) Sodium (137-145) mmol/L Potassium (3.5-5.1) mmol/L Chloride (98-107) mmol/L Carbon Dioxide (22-30) mmol/L Anion Gap (5-15) MEQ/L BUN (9-20) mg/dL Creatinine (0.66-1.25) mg/dL Estimated GFR ML/MIN Glucose (74-106) mg/dL Lactic Acid (0.4-2.0) Calcium (8.4-10.2) mg/dL Total Bilirubin (0.2-1.3) mg/dL AST (17-59) U/L ALT (0-50) U/L Alkaline Phosphatase (38-126) U/L Troponin I < 0.012 (0.000-0.034) ng/mL Serum Total Protein (6.3-8.2) g/dL Albumin (3.5-5.0) g/dL Amylase (30-110) U/L Lipase (23-300) U/L Urine Color (YELLOW) Urine Appearance (CLEAR) Urine pH (5-6) Ur Specific [place] (1.005-1.025) Urine Protein (Negative) Urine Ketones (NEGATIVE) Urine Blood (0-5) Justen/ul Urine Nitrite (NEGATIVE) Urine Bilirubin (NEGATIVE) Urine Urobilinogen (0-1) mg/dL Ur Leukocyte Esterase (NEGATIVE) Urine WBC (Auto) (0-5) /HPF Urine RBC (Auto) (0-2) /HPF U Epithel Cells (Auto) (FEW) /HPF Urine Bacteria (Auto) (NEGATIVE) /HPF Urine Culture Reflexed (NO) Urine Glucose (NEGATIVE) mg/dL SARS-CoV-2 (PCR) (NEGATIVE) - Radiology Impressions Radiology Exams & Impressions: Radiology Procedures Category Date Time Status ABDOMEN AND PELVIS W/0 CONTRAS [CT] Stat Exams 01/11/21 21:32 Completed Assessment/Plan (1) Nausea & vomiting Current Visit: Yes Status: Acute Assessment & Plan: resolved currently, continue fluids and antiemetics prn Code(s): R11.2 - NAUSEA WITH VOMITING, UNSPECIFIED (2) UTI (urinary tract infection) Current Visit: Yes Status: Acute Qualifiers: Assessment & Plan: on rocephin emperically, culture pending. Code(s): N39.0 - URINARY TRACT INFECTION, SITE NOT SPECIFIED (3) Multiple sclerosis Current Visit: No Status: Chronic Code(s): G35 - MULTIPLE SCLEROSIS
[2021-01-12] MEDS: Flomax 0.4 MG PO SCH (11:47)
[2021-01-12] MEDS: ROCEPHIN 1 Gm-D5w 50 ml Bag** 1 G/50 ML IVPB IV SCH (21:51)
[2021-01-13 05:11] LABS: Absolute Neutrophil Ct (ANC) 5.32 (1.4-6.9); BASOPHIL % 0.5 % (0.0-0.4); Basophil (Absolute #) 0.04 (0-0.4); Eosinophil % 2.9 % (0.00-5.0); Eosinophil (Absolute #) 0.23 (0-0.5); Hematocrit 39.9 % (42-50); Hemoglobin 12.8 gm/dl (12.5-18.0); Lymphocyte (Absolute #) 1.39 (1.0-4.6); Lymphocytes % 17.2 % (24.0-44.0); Mean Cell Volume 92.8 fl (78-100); Mean Corpuscular Hemoglobin 29.8 pg (26-32); Mean Corpuscular Hgb Concent. 32.1 g/dl (32-36); Mean Platelet Volume 9.6 fl (7.5-11.0); Monocyte (Absolute #) 1.09 (0.0-1.3); Monocytes % 13.5 % (0.0-12.0); Neutrophil % 65.9 % (36.0-66.0); Platelet Count 222 K/mm3 (150-450); Red Cell Distribution Width 13.7 % (11.5-14.0); White Blood Count 8.1 K/mm3 (4.0-10.5)
[2021-01-13 05:58] LABS: ANION GAP 10.7 MEQ/L (5-15); BLOOD UREA NITROGEN 15 mg/dL (9-20); CHLORIDE 110 mmol/L (98-107); Calcium 7.6 mg/dL (8.4-10.2); Carbon Dioxide 23 mmol/L (22-30); Creatinine 1 0.82 mg/dL (0.66-1.25); EST GLOMERULAR FILTRATION RATE > 60.0 ML/MIN; Glucose 93 mg/dL (74-106); Potassium 3.8 mmol/L (3.5-5.1); SODIUM 140 mmol/L (137-145)
[2021-01-13] MEDS: Sodium Chloride 0.9% 1000 ML 1,000 ML IV SCH (08:00)
--- NOTE | 2021-01-13 08:52 | PCM.NOTE ---
Date and Time: 01/13/21 0851 Subjective Assessment: patient feeling much better, taking po and no vomiting. denies problems or concerns and feels like his strength is back to normal. no fever overnight Objective Exam General Appearance: no apparent distress, obese Respiratory Exam: normal breath sounds, lungs clear, No respiratory distress Cardiovascular Exam: regular rate/rhythm, normal heart sounds Gastrointestinal/Abdomen Exam: soft, No tenderness, No mass OBJECTIVE DATA Vital Signs: Vital Signs - 24 hr Temp Pulse Resp BP Pulse Ox 01/13/21 08:00 96.8 F 88 18 146/84 91 L 01/13/21 04:00 98.7 F 87 18 145/73 94 L 01/12/21 23:45 98.1 F 74 20 118/57 96 01/12/21 19:51 98.4 F 73 18 124/58 92 L 01/12/21 16:00 98.5 F 90 16 109/56 93 L 01/12/21 11:56 95 H 16 121/58 93 L Pain Assessment - Last Documented Pain Intensity 0 Intake and Output: Intake & Output 01/10/21 01/11/21 01/12/21 01/13/21 11:59 11:59 11:59 11:59 Intake Total 891 3101 Output Total 1350 1875 Balance -459 1226 Weight 121.2 kg Lab Results: Lab Results-Last 24 Hours 01/12/21 01/13/21 01/13/21 Range/Units 08:51 05:05 05:05 WBC 8.1 (4.0-10.5) K/mm3 RBC 4.30 (4.1-5.6) M/mm3 Hgb 12.8 (12.5-18.0) gm/dl Hct 39.9 L (42-50) % MCV 92.8 (78-100) fl MCH 29.8 (26-32) pg MCHC 32.1 (32-36) g/dl RDW 13.7 (11.5-14.0) % Plt Count 222 (150-450) K/mm3 MPV 9.6 (7.5-11.0) fl Gran % 65.9 (36.0-66.0) % Eos # (Auto) 0.23 (0-0.5) Absolute Lymphs (auto) 1.39 (1.0-4.6) Absolute Monos (auto) 1.09 (0.0-1.3) Lymphocytes % 17.2 L (24.0-44.0) % Monocytes % 13.5 H (0.0-12.0) % Eosinophils % 2.9 (0.00-5.0) % Basophils % 0.5 (0.0-0.4) % Absolute Granulocytes 5.32 (1.4-6.9) Basophils # 0.04 (0-0.4) Sodium 140 (137-145) mmol/L Potassium 3.8 (3.5-5.1) mmol/L Chloride 110 H (98-107) mmol/L Carbon Dioxide 23 (22-30) mmol/L Anion Gap 10.7 (5-15) MEQ/L BUN 15 (9-20) mg/dL Creatinine 0.82 (0.66-1.25) mg/dL Estimated GFR > 60.0 ML/MIN Glucose 93 (74-106) mg/dL Calcium 7.6 L (8.4-10.2) mg/dL Troponin I < 0.012 (0.000-0.034) ng/mL Radiology Exams: Radiology Procedures Category Date Time Status ABDOMEN AND PELVIS W/0 CONTRAS [CT] Stat Exams 01/11/21 21:32 Completed Assessment/Plan (1) Nausea & vomiting Current Visit: Yes Status: Acute Assessment & Plan: resolved Code(s): R11.2 - NAUSEA WITH VOMITING, UNSPECIFIED (2) UTI (urinary tract infection) Current Visit: Yes Status: Acute Qualifiers: Assessment & Plan: on rocephin, improved clinically, home when culture final with sensitivities. patient understands Code(s): N39.0 - URINARY TRACT INFECTION, SITE NOT SPECIFIED (3) Multiple sclerosis Current Visit: No Status: Chronic Code(s): G35 - MULTIPLE SCLEROSIS
[2021-01-13] MEDS: PROTONIX 40 MG IV IV SCH (09:42)
[2021-01-13] MEDS: Flomax 0.4 MG PO SCH (09:42)
[2021-01-13] MEDS: ROCEPHIN 1 Gm-D5w 50 ml Bag** 1 G/50 ML IVPB IV SCH (21:09)
[2021-01-14 07:00] VITALS: BP 134/72; PULSE 82; O2SAT 93
--- NOTE | 2021-01-14 08:15 | PCM.DS ---
Discharge Summary Date of Admission: 01/12/21 03:22 Admitting Physician: EDILMA BRITO Primary Care Provider: EDILMA BRITO Allergies Allergies No Known Drug Allergies Allergy (Verified 01/12/21 04:11) Hospital Summary - Hospital Course Hospital Course: patient admitted with weakness and fever, found to have uti. improved with treatment, staph epi on culture sens to multiple meds. home on po abx today. patient has advanced MS so doesn't ambulate but typically can bear weight to transfer but was unable at home - Vitals & Intake/Output Vital Signs: Vital Signs Temperature 97.8 F 01/14/21 06:59 Pulse Rate 82 01/14/21 06:59 Respiratory Rate 18 01/14/21 06:59 Blood Pressure 134/72 01/14/21 06:59 O2 Sat by Pulse Oximetry 93 L 01/14/21 06:59 Intake & Output: Intake & Output 01/11/21 01/12/21 01/13/21 01/14/21 11:59 11:59 11:59 11:59 Intake Total 891 3251 2407 Output Total 1350 1875 2600 Balance -459 1376 -193 Weight 121.2 kg - Lab Result Diagrams: 01/13/21 05:05 01/13/21 05:05 Micro Results-Entire Visit: Microbiology 01/11/21 20:53 Urine Culture - Final Catherized Staphylococcus Epidermidis 01/12/21 01:55 Blood Culture - Preliminary Blood NO GROWTH TO DATE 01/12/21 01:45 Blood Culture - Preliminary Blood NO GROWTH TO DATE - Procedures and Test Procedures and Tests throughout Hospitalization: Therapy Orders & Screens 01/13/21 10:46 PT Screen per Nursing Assess ONCE Comment: PATIENT HAS QUESTIONS ABOUT [employer] OPTIONS Physician Instructions: Greater than 3 points order PT Admission Screenin Reason For Exam: Triggered on Admission Diagnosis: N/V/UTI Open Wound/Cellutlitis/Pressure Ulcers: No Acute Fx/ORIF/Change in wt bearing status: No Severe MUSCULOSKELETAL pain: No ADL Dysfunction: No Acute CVA w/Hemiparesis/Hemiplegia: No Decreased Functional Mobility/Strength: Yes: HX MS Sprain/Strain: No Acute Post-op Mobility Dysfunction: No Total Points: 1 Discharge Exam General Appearance: no apparent distress, obese Neurologic Exam: alert, oriented x 3, cooperative Respiratory Exam: normal breath sounds, lungs clear, No respiratory distress Cardiovascular Exam: regular rate/rhythm, normal heart sounds Gastrointestinal/Abdomen Exam: soft, No tenderness, No mass Final Diagnosis/Problem List - Final Discharge Diagnosis/Problem (1) Nausea & vomiting Current Visit: Yes Status: Acute Code(s): R11.2 - NAUSEA WITH VOMITING, UNSPECIFIED (2) UTI (urinary tract infection) Current Visit: Yes Status: Acute Code(s): N39.0 - URINARY TRACT INFECTION, SITE NOT SPECIFIED (3) Multiple sclerosis Current Visit: No Status: Chronic Code(s): G35 - MULTIPLE SCLEROSIS - Discharge Disposition: Home, Self-Care Condition: Stable Prescriptions: New Ciprofloxacin HCl [Cipro] 250 mg PO BID #10 tablet Continue Amitriptyline HCl 100 mg PO HS Tamsulosin HCl 0.4 mg [Flomax 0.4 MG] 0.4 mg PO DAILY Follow up with: EDILMA BRITO MD [Primary Care Provider] -
[2021-01-14] MEDS: Flomax 0.4 MG PO SCH (09:50)
[2021-01-14] MEDS: PROTONIX 40 MG IV IV SCH (09:50)
== END 2021-01-14 11:58 | disposition home or self-care (01) ==
LOC: ED 20:10 → MED SURG 01-12 03:22
PROVIDERS: ADMIT Family Medicine; ATTEND Family Medicine
DX: R11.2 Nausea with vomiting, unspecified (principal); N39.0 Urinary tract infection, site not specified; R53.1 Weakness; G35 Multiple sclerosis; R53.83 Other fatigue; Z99.3 Dependence on wheelchair; Z79.899 Other long term (current) drug therapy; Z20.828 Contact with and (suspected) exposure to other viral communicable diseases
CPT/HCPCS: 36000; 36415; 51702; 74176; 80048; 80053; 81001; 82150; 83605; 83690; 84484; 85025; 87040; 87077; 87086; 87186; 96360; 96374; 99285; 99291; U0003; G0378; J0696; J2405; A9270-GY

== ENCOUNTER 2022-06-14 18:37 | Emergency (ER) | payer MEDICARE, OTHER ==
[2022-06-14] MEDS ORDERED: MORPHINE SULFATE 4 MG INJ ONE (19:20)
[2022-06-14] MEDS ORDERED: Sodium Chloride 0.9% 1000 ML 1,000 ML ONE (19:20)
[2022-06-14] MEDS: MORPHINE SULFATE 4 MG INJ IV ONE (19:21)
[2022-06-14] MEDS: Sodium Chloride 0.9% 1000 ML 1,000 ML IV STA (19:21)
[2022-06-14 19:46] LABS: Absolute Neutrophil Ct (ANC) 10.51 x10^3/uL (1.4-6.9); Basophil (Absolute #) 0.08 x10^3/uL (0-0.4); Eosinophil % 0.6 % (0.00-5.0); Eosinophil (Absolute #) 0.07 x10^3/uL (0-0.5); Hematocrit 54.7 % (42-50); Hemoglobin 17.9 g/dL (12.5-18.0); Lymphocyte (Absolute #) 0.99 x10^3/uL (1.0-4.6); Lymphocytes % 7.9 % (24.0-44.0); Mean Cell Volume 91.9 fL (78-100); Mean Corpuscular Hemoglobin 30.1 pg (26-32); Mean Corpuscular Hgb Concent. 32.7 g/dL (32-36); Mean Platelet Volume 9.9 fL (7.5-11.0); Monocyte (Absolute #) 0.87 x10^3/uL (0.0-1.3); Monocytes % 6.9 % (0.0-12.0); Neutrophil % 83.7 % (36.0-66.0); Platelet Count 391 x10^3/uL (150-450); Red Blood Count 5.95 x10^6/uL (4.1-5.6); Red Cell Distribution Width 13.2 % (11.5-14.0); White Blood Count 12.6 x10^3/uL (4.0-10.5)
[2022-06-14 20:01] LABS: ALBUMIN 4.7 g/dL (3.5-5.0); ALKALINE PHOSPHATASE 130 U/L (38-126); ANION GAP 16.1 MEQ/L (5-15); BLOOD UREA NITROGEN 24 mg/dL (9-20); CHLORIDE 101 mmol/L (98-107); Calcium 9.3 mg/dL (8.4-10.2); Carbon Dioxide 29 mmol/L (22-30); Creatinine 1 1.01 mg/dL (0.66-1.25); EST GLOMERULAR FILTRATION RATE > 60.0 ML/MIN; Glucose 77 mg/dL (74-106); Potassium 4.4 mmol/L (3.5-5.1); SGOT/AST 36 U/L (17-59); SGPT/ALT 36 U/L (0-50); SODIUM 142 mmol/L (137-145); Total Protein 8.3 g/dL (6.3-8.2)
[2022-06-14 20:11] VITALS: BP 157/112; PULSE 94
[2022-06-14 20:13] VITALS: O2SAT 97
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
== END 2022-06-14 20:33 | disposition short-term general hospital (02) ==
LOC: ED 18:37
DX: T22.211A Burn of second degree of right forearm, initial encounter (principal); T24.211A Burn of second degree of right thigh, initial encounter; T24.221A Burn of second degree of right knee, initial encounter; T31.0 Burns involving less than 10% of body surface; X03.3XXA Fall due to controlled fire, not in building or structure, initial encounter; Y93.H9 Activity, other involving exterior property and land maintenance, building and construction; Y92.007 Garden or yard of unspecified non-institutional (private) residence as the place of occurrence of the external cause; G35 Multiple sclerosis; Z79.899 Other long term (current) drug therapy; Z28.310 Unvaccinated for COVID-19
CPT/HCPCS: 36000; 36415; 80053; 84484; 85025; 93041; 96360; 96374; 99284; J2270

== ENCOUNTER 2022-07-14 14:40 | Emergency (ER) | payer MEDICARE, OTHER ==
[2022-07-14 15:06] VITALS: O2SAT 99
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
[2022-07-14 15:36] LABS: Absolute Neutrophil Ct (ANC) 14.92 x10^3/uL (1.4-6.9); Basophil (Absolute #) 0.02 x10^3/uL (0-0.4); Eosinophil (Absolute #) 0 x10^3/uL (0-0.5); Hematocrit 45.6 % (42-50); Hemoglobin 14.2 g/dL (12.5-18.0); Lymphocyte (Absolute #) 0.61 x10^3/uL (1.0-4.6); Lymphocytes % 3.8 % (24.0-44.0); Mean Corpuscular Hemoglobin 28.3 pg (26-32); Mean Corpuscular Hgb Concent. 31.1 g/dL (32-36); Mean Platelet Volume 9.9 fL (7.5-11.0); Monocyte (Absolute #) 0.41 x10^3/uL (0.0-1.3); Monocytes % 2.6 % (0.0-12.0); Neutrophil % 92.9 % (36.0-66.0); Platelet Count 320 x10^3/uL (150-450); Red Blood Count 5.01 x10^6/uL (4.1-5.6); Red Cell Distribution Width 13.5 % (11.5-14.0); White Blood Count 16.1 x10^3/uL (4.0-10.5)
[2022-07-14 15:52] LABS: ALKALINE PHOSPHATASE 93 U/L (38-126); ANION GAP 12.5 MEQ/L (5-15); BLOOD UREA NITROGEN 33 mg/dL (9-20); CHLORIDE 102 mmol/L (98-107); Calcium 8.1 mg/dL (8.4-10.2); Carbon Dioxide 28 mmol/L (22-30); Creatinine 1 0.92 mg/dL (0.66-1.25); EST GLOMERULAR FILTRATION RATE > 60.0 ML/MIN; Glucose 126 mg/dL (74-106); SGOT/AST 33 U/L (17-59); SGPT/ALT 39 U/L (0-50); SODIUM 139 mmol/L (137-145); Total Protein 7.4 g/dL (6.3-8.2)
--- NOTE | 2022-07-14 16:30 | XRAY ---
Indication: Short of breath. Comparison: May 03, 2020 Portable chest unchanged again demonstrating chronic right hemidiaphragm elevation with minimal right base subsegmental atelectasis/scarring. Remaining heart and left lung unremarkable. Bony thorax intact again with mild degenerative changes. No new/acute findings.
[2022-07-14] MEDS ORDERED: ROCEPHIN 1 Gm-D5w 50 ml Bag** 1 G/50 ML IVPB IV STA (19:08)
[2022-07-14 19:13] VITALS: BP 127/79; PULSE 84
[2022-07-14] MEDS ORDERED: ROCEPHIN 1 Gm-D5w 50 ml Bag** 1 G/50 ML IVPB IV ONE (19:14)
--- NOTE | 2022-07-15 08:40 | XRAY ---
Indication: Short of breath. History of multiple sclerosis. Recent Covid 19. Elevated d-dimer. Multiple contiguous axial images obtained through the chest using 100 cc Isovue 370 contrast and PE protocol. Comparison: None Good opacification of the pulmonary arteries including lobar and segmental branches. No pulmonary embolus. Heart is not enlarged. Aorta is normal in course and caliber. [place] subcarinal and tiny right hilar calcified nodes. No pathologic mediastinal/hilar lymphadenopathy. There is right hemidiaphragm elevation. Right lower lobe demonstrates patchy consolidating infiltrates versus atelectasis. Inferior right upper lobe demonstrates subsegmental atelectasis. Left lung demonstrates mild dependent atelectasis. No suspicious pulmonary mass, nodule, or effusion. Bony thorax intact with osteopenia, moderate degenerative changes throughout the spine, and elongated levoscoliosis. Limited upper abdomen demonstrates a few hepatic cysts, largest 2.7 cm in the right lobe near the dome of the diaphragm. Impression: 1. Negative pulmonary embolus. 2. Right lower lobe patchy consolidating infiltrates versus atelectasis. 3. Chronic findings including right hemidiaphragm elevation, hepatic cysts, chronic bony findings, and old granulomatous disease.
== END 2022-07-14 20:00 | disposition home or self-care (01) ==
LOC: ED 14:40
DX: Z48.00 Encounter for change or removal of nonsurgical wound dressing (principal); R06.00 Dyspnea, unspecified; R91.8 Other nonspecific abnormal finding of lung field; G35 Multiple sclerosis; Z86.16 Personal history of COVID-19; Z79.52 Long term (current) use of systemic steroids; Z79.899 Other long term (current) drug therapy; Z28.310 Unvaccinated for COVID-19
CPT/HCPCS: 36000; 36415; 71045; 71260; 80053; 85025; 85379; 96365; 99284; J0696

== ENCOUNTER 2022-08-13 21:33 | Emergency (ER) | payer MEDICARE, OTHER ==
[2022-08-13] MEDS ORDERED: Zofran 4 MG/2 ML VIAL IV ONE (22:11)
[2022-08-13] MEDS ORDERED: MORPHINE SULFATE 4 MG INJ IV ONE (22:11)
[2022-08-13] MEDS ORDERED: Sodium Chloride 0.9% 1000 ML 1,000 ML IV STA (22:11)
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
[2022-08-13 22:56] LABS: Basophil (Absolute #) 0.05 x10^3/uL (0-0.4); Eosinophil % 0.3 % (0.00-5.0); Eosinophil (Absolute #) 0.04 x10^3/uL (0-0.5); Hemoglobin 15.2 g/dL (12.5-18.0); Lymphocyte (Absolute #) 1.63 x10^3/uL (1.0-4.6); Lymphocytes % 10.2 % (24.0-44.0); Mean Cell Volume 88.7 fL (78-100); Mean Corpuscular Hemoglobin 28.1 pg (26-32); Mean Corpuscular Hgb Concent. 31.7 g/dL (32-36); Mean Platelet Volume 9.6 fL (7.5-11.0); Monocyte (Absolute #) 1.81 x10^3/uL (0.0-1.3); Monocytes % 11.3 % (0.0-12.0); Neutrophil % 76.9 % (36.0-66.0); Platelet Count 301 x10^3/uL (150-450); Red Blood Count 5.41 x10^6/uL (4.1-5.6); Red Cell Distribution Width 14.2 % (11.5-14.0)
[2022-08-13] MEDS ORDERED: Sodium Chloride 0.9% 1000 ML 1,000 ML ONE (23:08)
[2022-08-13] MEDS ORDERED: MORPHINE SULFATE 4 MG INJ ONE (23:08)
[2022-08-13] MEDS ORDERED: Zofran 4 MG/2 ML VIAL ONE (23:08)
[2022-08-13 23:33] LABS: ALBUMIN 3.7 g/dL (3.5-5.0); ALKALINE PHOSPHATASE 101 U/L (38-126); ANION GAP 9.4 MEQ/L (5-15); BLOOD UREA NITROGEN 38 mg/dL (9-20); CHLORIDE 103 mmol/L (98-107); Calcium 8.8 mg/dL (8.4-10.2); Carbon Dioxide 29 mmol/L (22-30); Creatinine 1 1.16 mg/dL (0.66-1.25); EST GLOMERULAR FILTRATION RATE > 60.0 ML/MIN; Glucose 126 mg/dL (74-106); LIPASE 61 U/L (23-300); Potassium 4.1 mmol/L (3.5-5.1); SGOT/AST 25 U/L (17-59); SGPT/ALT 27 U/L (0-50); SODIUM 138 mmol/L (137-145)
[2022-08-14] MEDS ORDERED: Flomax 0.4 MG PO STA (01:31)
[2022-08-14 01:32] VITALS: O2SAT 96
[2022-08-14] MEDS ORDERED: Flomax 0.4 MG ONE (01:36)
[2022-08-14 02:12] LABS: ADD URINE CULTURE? YES (NO); Appearance Clear (Clear); Bacteria None Seen /HPF (None Seen); Bilirubin Negative (Negative); Blood Moderate (Negative); Epithelial Cells None Seen /HPF (None Seen); Glucose Negative (Negative); Ketones Negative (Negative); Leukocyte Esterase Moderate (Negative); Nitrite Negative (Negative); Protein,Urine Dip Negative (Negative); Urobilinogen 0.2 mg/dL (0.2)
[2022-08-14] MEDS ORDERED: ROCEPHIN 1 Gm-D5w 50 ml Bag** 1 G/50 ML IVPB IV STA (02:21)
[2022-08-14] MEDS ORDERED: ROCEPHIN 1 Gm-D5w 50 ml Bag** 1 G/50 ML IVPB IV ONE (02:23)
[2022-08-14 03:27] VITALS: BP 128/88; PULSE 101
--- NOTE | 2022-08-14 08:10 | XRAY ---
Indication: Abdomen pain, bloating, diarrhea, and constipation. Multiple contiguous axial images obtained through the abdomen and pelvis without contrast. Comparison: January 11, 2021 Again beam artifact from patient's arms. Lung bases again demonstrates bibasilar subsegmental atelectasis/scarring and right hemidiaphragm elevation. Heart not enlarged. Noncontrasted stomach and bowel loops appear nonobstructed again with normal appendix. Again mild/moderate diffuse scattered colonic fecal debris throughout more than before again with mild rectal impaction. No free fluid/air. New 3 mm proximal left ureter calculus, approximately L3-L4 interspace level. Mild left hydronephrosis and perinephric stranding consistent with partial obstructive uropathy. Additional micro-calculus in each kidney. Stable hepatic cysts. Remaining liver, gallbladder, pancreas, spleen, adrenal glands, kidneys, ureters, and bladder are unremarkable for noncontrast exam. Again minimal distal aortic calcifications without AAA. Osseous structures intact again with osteopenia, moderate multilevel degenerative spondylosis, moderate levorotoscoliosis, and moderate degenerative changes both hips. Impression: 1. New 3 mm proximal left ureter calculus producing partial obstruction. Again additional bilateral renal micro-calculi. 2. Worsening diffuse fecal stasis. 3. Again chronic findings including bibasilar atelectasis/scarring, right hemidiaphragm elevation, hepatic cysts, and chronic bony findings. Comment: Preliminary interpretation made by [facility]. No critical discrepancy.
== END 2022-08-14 03:15 | disposition home or self-care (01) ==
LOC: ED 21:33
DX: N13.2 Hydronephrosis with renal and ureteral calculous obstruction (principal); K59.00 Constipation, unspecified; N39.0 Urinary tract infection, site not specified; Z79.891 Long term (current) use of opiate analgesic; Z79.52 Long term (current) use of systemic steroids; Z28.310 Unvaccinated for COVID-19
CPT/HCPCS: 36000; 36415; 74176; 80053; 81001; 83605; 83690; 85025; 87086; 96365; 96374; 96375; 99284; J0696; J2270; J2405; A9270-GY

== ENCOUNTER 2023-11-11 12:32 | Emergency (ER) | payer MEDICARE, OTHER ==
[2023-11-11 12:55] VITALS: TEMP 97.8
[2023-11-11] MEDS ORDERED: Sodium Chloride 0.9% 1000 ML 1,000 ML ONE (13:01)
[2023-11-11] MEDS: Sodium Chloride 0.9% 1000 ML 1,000 ML IV SCH (13:02)
[2023-11-11 13:27] LABS: Absolute Neutrophil Ct (ANC) 5.68 x10^3/uL (1.4-6.9); BASOPHIL % 0.7 % (0.0-0.4); Basophil (Absolute #) 0.06 x10^3/uL (0-0.4); Eosinophil % 1.2 % (0.00-5.0); Hematocrit 42.8 % (42-50); Hemoglobin 14.3 g/dL (12.5-18.0); IMMATURE GRAN # 0.06 x10^3u/L (0.00-0.03); IMMATURE GRAN % 0.7 % (0.00-0.4); Lymphocyte (Absolute #) 1.51 x10^3/uL (1.0-4.6); Lymphocytes % 18.6 % (24.0-44.0); Mean Cell Volume 87.9 fL (78-100); Mean Corpuscular Hemoglobin 29.4 pg (26-32); Mean Corpuscular Hgb Concent. 33.4 g/dL (32-36); Mean Platelet Volume 9.8 fL (7.5-11.0); Monocytes % 8.6 % (0.0-12.0); Neutrophil % 70.2 % (36.0-66.0); Platelet Count 388 x10^3/uL (150-450); Red Blood Count 4.87 x10^6/uL (4.1-5.6); Red Cell Distribution Width 13.8 % (11.5-14.0); White Blood Count 8.1 x10^3/uL (4.0-10.5)
[2023-11-11] MEDS ORDERED: CLINDAMYCIN-D5W 900 MG/50 ML*** 900 MG/50 ML BAG IV ONE (13:38)
[2023-11-11] MEDS: CLINDAMYCIN-D5W 900 MG/50 ML*** 900 MG/50 ML BAG IV STA (13:39)
[2023-11-11 13:49] LABS: ALBUMIN 3.4 g/dL (3.5-5.0); ANION GAP 11.9 MEQ/L (5-15); BILIRUBIN,TOTAL 0.5 mg/dL (0.2-1.3); Calcium 8.4 mg/dL (8.4-10.2); Creatinine 1 0.84 mg/dL (0.66-1.25); EST GLOMERULAR FILTRATION RATE 97.4 ML/MIN; Potassium 3.6 mmol/L (3.5-5.1); Total Protein 7.2 g/dL (6.3-8.2)
[2023-11-11 13:55] LABS: Appearance Clear (Clear); Bacteria None Seen /HPF (None Seen); Bilirubin Negative (Negative); Blood Negative (Negative); Epithelial Cells None Seen /HPF (None Seen); Glucose, Urine Negative (Negative); Hyaline Casts NONE SEEN /LPF (0-2); Ketones Trace (Negative); Leukocyte Esterase Small (Negative); Nitrite Negative (Negative); Protein,Urine Dip Negative (Negative); RBC 0-2 /HPF (0-5); Specific Gravity 1.015 (1.005-1.030)
[2023-11-11 13:56] LABS: ADD URINE CULTURE? ORDERED SEPARATELY (NO)
[2023-11-11] MEDS: Zofran 4 MG/2 ML VIAL IV ONE (14:13)
[2023-11-11 14:14] VITALS: O2SAT 94
--- NOTE | 2023-11-11 15:02 | ERPHSYRPT ---
- History of Present Illness Time Seen by Provider: 11/11/23 12:50 Source: patient, family Exam Limitations: no limitations Patient Subjective Stated Complaint: C/O RLE swelling Triage Nursing Assessment: Patient came back to ER in his electric W/C. He prefers to stay seated in it and not be transferred to the ER bed at this time. He is alert and oriented. NO SOB. RLE is red, hot, swollen. Skin to outer leg noted to be graft site; patient states was done in June 2022. Pedal pulse present with use of doppler. Foot is very tender to touch. Physician History: Patient is a 63-year-old white male who was found to have urosepsis and was taken by ambulance to [facility] where he stayed for a week and was rel eased on . He was treated during his stay there for the urosepsis with Rocephin and was discharged on cefdinir while in the hospital he developed some redness of the especially the right leg and some bilateral lower extremity swelling he had a Doppler done which was negative for any thrombosis.This patient has MS and has had an injury to the right lower extremity which required extensive skin grafting from [place]. Timing/Duration: week(s) (2 weeks) Severity: moderate Modifying Factors: Improves With: nothing Associated Symptoms: other (Patient has some swelling and redness and heat in the lower extremities especially the right) Allergies/Adverse Reactions: No Known Drug Allergies Allergy (Verified 11/11/23 12:42) Home Medications: Amitriptyline HCl 100 mg PO HS 08/04/19 [History] Tamsulosin HCl 0.4 mg [Flomax 0.4 MG] 0.4 mg PO DAILY 01/11/21 [History] Baclofen 10 mg [Lioresal 10 mg] 10 mg PO TID 07/14/22 [History] Ergocalciferol (Vitamin D2) [Vitamin D2] 1,250 mcg PO WEEKLY 07/14/22 [History] Cefdinir 1 cap PO BID 11/11/23 [History] Hx Tetanus, Diphtheria Vaccination/Date Given: Yes Hx Influenza Vaccination/Date Given: Yes Hx Pneumococcal Vaccination/Date Given: Yes Immunizations Up to Date: Yes Travel Risk - International Travel Have you traveled outside of the country in past 3 weeks: No - Emerging Infectious Disease Are you exhibiting symptoms associated with any current EIDs: No - Review of Systems Constitutional: No Fever, No Chills Eyes: No Symptoms Ears, Nose, & Throat: No Symptoms Respiratory: No Cough, No Dyspnea Cardiac: No Chest Pain, No Edema, No Syncope Abdominal/Gastrointestinal: No Abdominal Pain, No Nausea, No Vomiting, No Diarrhea Genitourinary Symptoms: No Dysuria Musculoskeletal: No Back Pain, No Neck Pain Skin: Cellulitis (Lower extremities), No Rash Neurological: Paralysis (Patient is wheelchair-bound), No Dizziness, No Focal Weakness, No Sensory Changes Psychological: No Symptoms Endocrine: No Symptoms All Other Systems: Reviewed and Negative - Past Medical History Pertinent Past Medical History: Yes Neurological History: Paralysis, Other ENT History: No Pertinent History Cardiac History: No Pertinent History Respiratory History: No Pertinent History Endocrine Medical History: No Pertinent History Musculoskeletal History: No Pertinent History GI Medical History: No Pertinent History History: No Pertinent History Psycho-Social History: Depression Male Reproductive Disorders: No Pertinent History Other Medical History: URINARY INCONTINENCE, OBSESITY, CHRONIF FATIGUE, RELAPSING MULTIPLE SCLEROSIS, VISUAL IMPAIREMENT BOTH EYES, - Past Surgical History Past Surgical History: No Neuro Surgical History: No Pertinent History Cardiac: No Pertinent History Respiratory: No Pertinent History Gastrointestinal: No Pertinent History Genitourinary: No Pertinent History Musculoskeletal: No Pertinent History Male Surgical History: No Pertinent History Other Surgical History: [place] to right upper and lower leg, right lower arm, and grafts taken from the right upper leg - Social History Smoking Status: Never smoker Exposure to second hand smoke: No Drug Use: none Patient Lives Alone: No - Nursing Vital Signs Nursing Vital Signs: Initial Vital Signs Pulse Rate 88 11/11/23 12:40 Respiratory Rate 20 11/11/23 12:40 Blood Pressure 118/87 11/11/23 12:40 O2 Sat by Pulse Oximetry 95 11/11/23 12:40 Pain Scale Pain Intensity 1 - Physical Exam General Appearance: mild distress Eye Exam: PERRL/EOMI, eyes nml inspection Ears, Nose, Throat Exam: normal ENT inspection, TMs normal, pharynx normal, moist mucous membranes Neck Exam: normal inspection, non-tender, supple, full range of motion Respiratory Exam: normal breath sounds, lungs clear, No respiratory distress Cardiovascular Exam: regular rate/rhythm, normal heart sounds, normal peripheral pulses Gastrointestinal/Abdomen Exam: soft, normal bowel sounds, No tenderness, No mass Back Exam: normal inspection, normal range of motion, No CVA tenderness, No vertebral tenderness Extremity Exam: parasthesia, paralysis, inflammation, tenderness Neurologic Exam: alert, oriented x 3, cooperative Skin Exam: normal color, other (Erythema and heat suggesting cellulitis of the lower extremity) SpO2 Interpretation: normal SpO2: 94 O2 Delivery: Room Air - Course Nursing assessment & vital signs reviewed: Yes Ordered Tests: Active Orders 24 hr Category Date Time Status Conn [Catheter-Hollister Conn] STAT Care 11/11/23 13:42 Active IV Insertion STAT Care 11/11/23 12:52 Active BLOOD CULTURE Stat Lab 11/11/23 13:09 Received CBC W DIFF Stat Lab 11/11/23 12:50 Completed CMP Stat Lab 11/11/23 12:50 Completed CULTURE,URINE Stat Lab 11/11/23 13:37 Received D-DIMER QUANTITATIVE Stat Lab 11/11/23 12:50 Completed Lactic Acid Stat Lab 11/11/23 13:25 Completed Lactic Acid Stat Lab 11/11/23 14:44 Completed UA W/RFX UR CULTURE Stat Lab 11/11/23 13:37 Completed Medication Summary Generic Name Dose Route Start Last Admin Trade Name Freq PRN Reason Stop Dose Admin Sodium Chloride 1,000 mls @ 100 mls/hr 11/11/23 13:00 11/11/23 13:02 Sodium Chloride 0.9% 1000 Ml IV 12/11/23 12:59 100 mls/hr .Q10H CAROLE Administration Discontinued Medications Generic Name Dose Route Start Last Admin Trade Name Freq PRN Reason Stop Dose Admin Clindamycin HCl/Dextrose 900 mg in 50 mls @ 100 mls/hr 11/11/23 13:33 11/11/23 14:13 Clindamycin-D5w 900 Mg/50 Ml IV 11/11/23 14:02 Infused STAT STA Infusion Clindamycin HCl/Dextrose Confirm 11/11/23 13:38 Clindamycin-D5w 900 Mg/50 Ml Administered 11/11/23 13:39 Dose 900 mg in 50 mls @ ud IV .STK-MED ONE Ondansetron HCl 4 mg 11/11/23 12:56 11/11/23 14:13 Ondansetron Hcl 4 Mg/2 Ml Vial IV 11/11/23 12:57 Not Given STAT ONE Lab/Rad Data: Laboratory Result Diagrams 11/11/23 12:50 11/11/23 12:50 Laboratory Results 11/11/23 11/11/23 11/11/23 Range/Units 14:44 13:37 13:25 WBC (4.0-10.5) x10^3/uL RBC (4.1-5.6) x10^6/uL Hgb (12.5-18.0) g/dL Hct (42-50) % MCV (78-100) fL MCH (26-32) pg MCHC (32-36) g/dL RDW (11.5-14.0) % Plt Count (150-450) x10^3/uL MPV (7.5-11.0) fL Gran % (36.0-66.0) % Immature Gran % (Auto) (0.00-0.4) % Nucleat RBC Rel Count (0.00-0.1) % Eos # (Auto) (0-0.5) x10^3/uL Immature Gran # (Auto) (0.00-0.03) x10^3u/L Absolute Lymphs (auto) (1.0-4.6) x10^3/uL Absolute Monos (auto) (0.0-1.3) x10^3/uL Absolute Nucleated RBC (0.00-0.01) x10^3u/L Lymphocytes % (24.0-44.0) % Monocytes % (0.0-12.0) % Eosinophils % (0.00-5.0) % Basophils % (0.0-0.4) % Absolute Granulocytes (1.4-6.9) x10^3/uL Basophils # (0-0.4) x10^3/uL D-Dimer (0.0-0.50) mg/L Sodium (135-145) mmol/L Potassium (3.5-5.1) mmol/L Chloride (98-107) mmol/L Carbon Dioxide (22-30) mmol/L Anion Gap (5-15) MEQ/L BUN (9-20) mg/dL Creatinine (0.66-1.25) mg/dL Estimated GFR ML/MIN Glucose (74-106) mg/dL Lactic Acid 1.4 2.2 H (0.4-2.0) Calcium (8.4-10.2) mg/dL Total Bilirubin (0.2-1.3) mg/dL AST (17-59) U/L ALT (0-50) U/L Alkaline Phosphatase (38-126) U/L Serum Total Protein (6.3-8.2) g/dL Albumin (3.5-5.0) g/dL Urine Color Yellow (Yellow) Urine Appearance Clear (Clear) Urine pH 5.0 (4.6-8.0) Ur Specific [place] 1.015 (1.005-1.030) Urine Protein Negative (Negative) Urine Glucose (UA) Negative (Negative) mg/dL Urine Ketones Trace A (Negative) Urine Blood Negative (Negative) Urine Nitrite Negative (Negative) Urine Bilirubin Negative (Negative) Urine Urobilinogen 1.0 A (0.2) mg/dL Ur Leukocyte Esterase Small A (Negative) U Hyaline Cast (Auto) NONE SEEN (0-2) /LPF Urine Microscopic RBC 0-2 (0-5) /HPF Urine Microscopic WBC 11-20 A (0-5) /HPF Ur Epithelial Cells None Seen (None Seen) /HPF Urine Bacteria None Seen (None Seen) /HPF Urine Culture Reflexed ORDERED SEPARATELY (NO) 11/11/23 11/11/23 11/11/23 Range/Units 12:50 12:50 12:50 WBC 8.1 (4.0-10.5) x10^3/uL RBC 4.87 (4.1-5.6) x10^6/uL Hgb 14.3 (12.5-18.0) g/dL Hct 42.8 (42-50) % MCV 87.9 (78-100) fL MCH 29.4 (26-32) pg MCHC 33.4 (32-36) g/dL RDW 13.8 (11.5-14.0) % Plt Count 388 (150-450) x10^3/uL MPV 9.8 (7.5-11.0) fL Gran % 70.2 H (36.0-66.0) % Immature Gran % (Auto) 0.7 H (0.00-0.4) % Nucleat RBC Rel Count 0.0 (0.00-0.1) % Eos # (Auto) 0.10 (0-0.5) x10^3/uL Immature Gran # (Auto) 0.06 H (0.00-0.03) x10^3u/L Absolute Lymphs (auto) 1.51 (1.0-4.6) x10^3/uL Absolute Monos (auto) 0.70 (0.0-1.3) x10^3/uL Absolute Nucleated RBC 0.00 (0.00-0.01) x10^3u/L Lymphocytes % 18.6 L (24.0-44.0) % Monocytes % 8.6 (0.0-12.0) % Eosinophils % 1.2 (0.00-5.0) % Basophils % 0.7 (0.0-0.4) % Absolute Granulocytes 5.68 (1.4-6.9) x10^3/uL Basophils # 0.06 (0-0.4) x10^3/uL D-Dimer 0.80 H* (0.0-0.50) mg/L Sodium 138 (135-145) mmol/L Potassium 3.6 (3.5-5.1) mmol/L Chloride 104 (98-107) mmol/L Carbon Dioxide 26 (22-30) mmol/L Anion Gap 11.9 (5-15) MEQ/L BUN 21 H (9-20) mg/dL Creatinine 0.84 (0.66-1.25) mg/dL Estimated GFR 97.4 ML/MIN Glucose 105 (74-106) mg/dL Lactic Acid (0.4-2.0) Calcium 8.4 (8.4-10.2) mg/dL Total Bilirubin 0.50 (0.2-1.3) mg/dL AST 29 (17-59) U/L ALT 25 (0-50) U/L Alkaline Phosphatase 75 (38-126) U/L Serum Total Protein 7.2 (6.3-8.2) g/dL Albumin 3.4 L (3.5-5.0) g/dL Urine Color (Yellow) Urine Appearance (Clear) Urine pH (4.6-8.0) Ur Specific [place] (1.005-1.030) Urine Protein (Negative) Urine Glucose (UA) (Negative) mg/dL Urine Ketones (Negative) Urine Blood (Negative) Urine Nitrite (Negative) Urine Bilirubin (Negative) Urine Urobilinogen (0.2) mg/dL Ur Leukocyte Esterase (Negative) U Hyaline Cast (Auto) (0-2) /LPF Urine Microscopic RBC (0-5) /HPF Urine Microscopic WBC (0-5) /HPF Ur Epithelial Cells (None Seen) /HPF Urine Bacteria (None Seen) /HPF Urine Culture Reflexed (NO) - Progress Progress: unchanged Counseled pt/family regarding: lab results, diagnosis Medical Desision Making - Independent Historian Additional History obtained from: Spouse - External Record(s) Reviewed Records reviewed as a part of evaluation & management: Inpatient (Records from [facility] reviewed) - Social Determinants of Health Limited access to: transportation - Diagnostic Testing Diagnostic test were ordered, analyzed, and reviewed by me: Yes - Risk of complications Low Risk: Low risk of morbidity from additional dx testing or treatment - Departure Departure Disposition: Home Clinical Impression: Cellulitis, Multiple sclerosis, UTI (urinary tract infection) Condition: Stable Critical Care Time: No Referrals: EDILMA BRITO MD [Primary Care Provider] - Follow up/PCP as directed Instructions: Dependent Edema (DC), Cellulitis (Skin Infection), Adult (DC) Additional Instructions: Patient was instructed to continue his cefdinir until completed he was also informed that he will be on Cleocin for the cellulitis 300 mg 3 times a day he was given a full day's dose as a bolus.We will also try him on a very mild diuretic to try to help the swelling in his legs. Prescriptions: clindamycin HCL [Cleocin HCl] 300 mg PO TID 10 Days #30 cap Furosemide 20 mg [Lasix 20 mg] 10 mg PO BID #10 tablet
[2023-11-11 15:11] VITALS: BP 120/83; PULSE 80; RESP 18
== END 2023-11-11 15:18 | disposition home or self-care (01) ==
LOC: ED 12:32
DX: L03.115 Cellulitis of right lower limb (principal); N39.0 Urinary tract infection, site not specified; G35 Multiple sclerosis; Z79.899 Other long term (current) drug therapy; Z59.82 Transportation insecurity
CPT/HCPCS: 36000; 36415; 51702; 80053; 81001; 83605; 85025; 85379; 87040; 87086; 99284

== ENCOUNTER 2023-11-18 15:28 | Emergency (ER) | payer MEDICARE, OTHER ==
[2023-11-18 15:42] VITALS: PULSE 84; RESP 16; TEMP 98; O2SAT 95
[2023-11-18] MEDS ORDERED: NORCO 5/325 MG ONE (16:35)
--- NOTE | 2023-11-18 16:40 | ERPHSYRPT ---
- History of Present Illness Time Seen by Provider: 11/18/23 15:45 Source: patient Exam Limitations: no limitations Patient Subjective Stated Complaint: Right leg pain Triage Nursing Assessment: 63 yr old male pt arrives to ED via POV with his . Pt in his personal wheelchair back to room 4. Pt presents with right leg swelling and pain. Pt reports that he thinks his swelling has gotten better but the pain has increased significantly today. Pt states that his pain goes down into his foot. Pt is currently taking a antibiotic for his cellulitis. Pt is alert, oriented and not in distress. Physician History: 63yo m pmhx MS wheelchair bound presents via private vehicle for RLE pain. Pt was seen in ED 7d ago and started on clindamycin for RLE cellulitis. Pt reports swelling and redness has improved over the past week, states he does still have some swelling around the ankle and foot but the more proximal aspect of his leg is much less swollen. Pt came in today because the pain had increased. Pt currently denies fever, cp, soa, n/v/abdominal pain, posterior fossa pain, wound weeping. Method of Injury: other (cellulitis) Occurred: last week Quality: constant Severity of Pain-Max: mild Severity of Pain-Current: mild Lower Extremities Pain: leg: right, foot: right, ankle: right Modifying Factors: Improves With: nothing Associated Symptoms: none Allergies/Adverse Reactions: No Known Drug Allergies Allergy (Verified 11/18/23 15:42) Home Medications: Amitriptyline HCl 100 mg PO HS 08/04/19 [History] Tamsulosin HCl 0.4 mg [Flomax 0.4 MG] 0.4 mg PO DAILY 01/11/21 [History] Baclofen 10 mg [Lioresal 10 mg] 10 mg PO TID 07/14/22 [History] Ergocalciferol (Vitamin D2) [Vitamin D2] 1,250 mcg PO WEEKLY 07/14/22 [History] Cefdinir 1 cap PO BID 11/11/23 [History] Hx Tetanus, Diphtheria Vaccination/Date Given: Yes Hx Influenza Vaccination/Date Given: Yes Hx Pneumococcal Vaccination/Date Given: Yes Travel Risk - International Travel Have you traveled outside of the country in past 3 weeks: No - Emerging Infectious Disease Are you exhibiting symptoms associated with any current EIDs: No - Review of Systems Constitutional: No Symptoms Respiratory: No Symptoms Cardiac: Edema Abdominal/Gastrointestinal: No Symptoms Skin: Cellulitis - Past Medical History Pertinent Past Medical History: Yes Neurological History: Paralysis, Other ENT History: No Pertinent History Cardiac History: No Pertinent History Respiratory History: No Pertinent History Endocrine Medical History: No Pertinent History Musculoskeletal History: No Pertinent History GI Medical History: No Pertinent History History: No Pertinent History Psycho-Social History: Depression Male Reproductive Disorders: No Pertinent History Other Medical History: URINARY INCONTINENCE, OBSESITY, CHRONIC FATIGUE, MULTIPLE SCLEROSIS, VISUAL IMPAIREMENT BOTH EYES - Past Surgical History Past Surgical History: No Neuro Surgical History: No Pertinent History Cardiac: No Pertinent History Respiratory: No Pertinent History Gastrointestinal: No Pertinent History Genitourinary: No Pertinent History Musculoskeletal: No Pertinent History Male Surgical History: No Pertinent History Other Surgical History: grafts taken from the right upper leg - Social History Smoking Status: Never smoker Exposure to second hand smoke: No Drug Use: none Patient Lives Alone: No - Nursing Vital Signs Nursing Vital Signs: Initial Vital Signs Pulse Rate 84 11/18/23 15:38 Blood Pressure 130/79 11/18/23 15:38 O2 Sat by Pulse Oximetry 94 L 11/18/23 15:38 Pain Scale Pain Intensity 6 - Physical Exam General Appearance: no apparent distress, alert Cardiovascular/Respiratory Exam: chest non-tender, normal breath sounds, regular rate/rhythm, heart sounds normal, no respiratory distress Legs Exam: right leg: non-tender, swelling, other (evidence of LE cellulitis; +1 pitting edema from mid mack to foot) Knees Exam: bilateral knee: non-tender, normal inspection, normal range of motion, no evidence of injury Ankle Exam: right ankle: swelling Foot Exam: right foot: swelling Mental Status Exam: alert, oriented x 3, cooperative SpO2 Interpretation: normal SpO2: 95 O2 Delivery: Room Air Ordered Tests: Active Orders 24 hr Category Date Time Status Ultrasound Unilateral Extremities [VENOUS UNILAT/ Exams 11/18/23 15:53 Taken LIMITED EXTREMIT] [US] Stat Medication Summary Discontinued Medications Generic Name Dose Route Start Last Admin Trade Name Freq PRN Reason Stop Dose Admin Hydrocodone Bitart/Acetaminophen 1 tab 11/18/23 16:33 11/18/23 16:46 Hydrocodone/Apap 5/325 1 Tab Tablet PO 11/18/23 16:34 1 tab STAT ONE Administration Hydrocodone Bitart/Acetaminophen Confirm 11/18/23 16:35 Hydrocodone/Apap 5/325 1 Tab Tablet Administered 11/18/23 16:36 Dose 1 tab .ROUTE .STK-MED ONE Furosemide 40 mg 11/18/23 16:44 11/18/23 18:15 Furosemide 40 Mg Tablet PO 11/18/23 16:45 40 mg STAT ONE Administration - Progress Progress: improved Progress Note: 11/18/23 16:48 US doppler LE negative for DVT per US tech, will await radiologist read will give PO 5mg norco and 40mg lasix PO 11/18/23 18:35 pain improved significantly per US tech - doppler US negative for DVT of RLE, will call pt w/ formal results, informed pt to call for results on Monday if he has not heard back yet Plan to DC home, follow up with Dr Perkins on Monday continue clindamycin for full course will prescribe lasix 40mg daily for 5d to aid w/ reduction of swelling can use tylenol/ibuprofen for pain management elevate foot when possible return to ED if: pain becomes unbearable, swelling progresses significantly, develop chest pain or shortness of breath Counseled pt/family regarding: diagnosis, need for follow-up, rad results Medical Desision Making - Diagnostic Testing Diagnostic test were ordered, analyzed, and reviewed by me: Yes Radiological Interpretation: Reviewed by me, Teleradiologist Report - Risk of complications Low Risk: Low risk of morbidity from additional dx testing or treatment - Departure Departure Disposition: Home Clinical Impression: Edema of right lower extremity Cellulitis Qualifiers: Site of cellulitis: extremity Site of cellulitis of extremity: lower extremity Laterality: right Qualified Code(s): L03.115 - Cellulitis of right lower limb Condition: Stable Critical Care Time: No Referrals: EDILMA PERKINS MD [Primary Care Provider] - Follow up/PCP as directed Additional Instructions: Plan to DC home, follow up with Dr Perkins on Monday continue clindamycin for full course will prescribe lasix 40mg daily for 5d to aid w/ reduction of swelling can use tylenol/ibuprofen for pain management elevate foot when possible return to ED if: pain becomes unbearable, swelling progresses significantly, develop chest pain or shortness of breath
[2023-11-18] MEDS: NORCO 5/325 MG PO ONE (16:46)
[2023-11-18 18:06] VITALS: BP 132/86
[2023-11-18] MEDS: Lasix 40 MG PO ONE (18:15)
--- NOTE | 2023-11-18 19:54 | XRAY ---
Indication: Right leg pain. 2-dimensional sonogram and color Doppler imaging measure [place] was right leg performed. Comparison: None No thrombus seen in the examined deep venous vessels right leg including greater saphenous vein. Veins demonstrate normal compressibility. Venous waveforms are normal with and without augmentation. Impression: Right leg negative for DVT. Comment: Preliminary report was given.
== END 2023-11-18 18:48 | disposition home or self-care (01) ==
LOC: ED 15:28
DX: R60.0 Localized edema (principal); L03.115 Cellulitis of right lower limb; M79.604 Pain in right leg; G35 Multiple sclerosis; Z79.899 Other long term (current) drug therapy; Z99.3 Dependence on wheelchair
CPT/HCPCS: 93971; 99283; A9270-GY